=== PATIENT | male | born 1935 | race Caucasian/White ===

== ENCOUNTER 2019-09-14 21:43 | Emergency (ER) | payer MEDICARE, SELFPAY ==
[2019-09-14 21:48] VITALS: BP 167/78; PULSE 70; RESP 18; TEMP 36.9; O2SAT 100
--- NOTE | 2019-09-14 21:58 | ED.CHESTPAIN ---
HPI - Chest Pain General Chief Complaint: Chest Pain Stated Complaint: burning in chest Time Seen by Provider: 09/14/19 21:56 Source: patient, family and RN notes reviewed Mode of arrival: ambulatory Limitations: other (Poor historian ) History of Present Illness HPI narrative: A 84 y/o male presents to the ED with intermittent, burning, lt CP for the past couple days. He states that the pain radiates into his LUE, neck, upper back, and shoulders. He reports that he had therapy for his neck, back, shoulders, and knees today for his arthritis, which he has been doing for sometime. He notes that he took Tylenol at 8 PM tonight but denies it alleviating his pain. He also denies any SOB, N/V/D, or ABD pain. MD complaint: chest pain Onset (ago): day(s) (a couple) Timing of current episode: episodic Pain location: left chest Pain radiation: left arm, back (upper), neck, left shoulder and right shoulder Quality: burning Relieving factors: nothing Treatment prior to arrival: other (Tylenol) Related Data Allergies Allergy/AdvReac Type Severity Reaction Status Date / Time No Known Allergies Allergy Verified 09/01/19 15:21 Review of Systems Review of Systems: All systems reviewed & are unremarkable except as noted in HPI and below Cardiovascular: Cardiovascular: Reports chest pain (lt that radiates into his neck, upper back, shoulders, and LUE) Respiratory: Respiratory: Denies dyspnea Gastrointestinal: Gastrointestinal: Denies abdominal pain, Denies diarrhea, Denies nausea and Denies vomiting PMFSH Past Medical History Medical History (Updated 09/15/19 @ 00:26 by Aries Hall MD) Arthritis History of BPH History of depression History of gastroesophageal reflux (GERD) History of seizures Surgical History Surgical History (Updated 09/14/19 @ 22:12 by Faraz Rowe) Surgical history unknown Social History Social History Smoking status: Never smoker Substance use: never Gender identity (if verbalized by the patient): Female Exam Const: General: healthy appearing and no acute distress Nutritional Appearance: well nourished HENMT: Mouth: Yes lip normal and Yes moist mucous membranes Eyes: Conjunctivae: conjunctivae normal Pupils: Equal, round and reactive pupils present Resp: Effort & Inspection: normal respiratory effort Auscultation: clear to auscultation bilaterally Cardio: Rate: regular rate Rhythm: regular rhythm Heart sounds: no murmurs GI: GI Palp: No abdominal tenderness and Yes Soft to palpation Auscultation: normal bowel sounds Back/Spine/Pelvis: Back: other (Diffuse tenderness across upper back) Other: Full ROM. Skin: General skin exam: normal color, dry skin and other (warm) Neuro: General: patient oriented x3 (alert) Speech: normal speech Extrem: General: full ROM Psych: Mental Status: mental status grossly normal Affect: normal affect Course Vital Signs Vital signs: Vital Signs Temperature 36.9 C 09/14/19 21:48 Pulse Rate 70 09/14/19 21:48 Respiratory Rate 18 09/14/19 21:48 Blood Pressure 167/78 H 09/14/19 21:48 Pulse Oximetry 100 09/14/19 21:48 Temperature 36.9 C 09/14/19 21:48 Pulse Rate 60 09/15/19 00:51 Respiratory Rate 20 09/15/19 00:51 Blood Pressure 166/81 H 09/15/19 00:51 Pulse Oximetry 99 09/15/19 00:51 MDM - Chest Pain MDM Narrative Medical decision making narrative: His pain does not seem to be consistent with any particularly worisem cause, however her is a poor history and has difficulty articulating any specific information about hs symptoms or why whats different about his pain that made him come in toinght. pain improved with motrin. Differential Diagnosis Differential diagnosis: Likely pneumothorax, atypical chest pain and other (muscle strain, NSTEMI, arthritis) Medical Records Data Attestation: I reviewed the patient's medical records. Lab Data Attestation: I re
--- NOTE | 2019-09-14 22:12 | PC.NURSE ---
Patient refused chest Xray. EDP informed.
--- NOTE | 2019-09-14 22:20 | ECG_ITS ---
Measurements Intervals [place] Rate: 60 P: 27 [place]: 184 QRS: -21 QRSD: 94 T: 44 QT: 416 QTc: 417 Interpretive Statements SINUS RHYTHM NORMAL ECG Electronically Signed On 09-15-2019 6:42:17 [employer] by Paulo Gamez D.O.
[2019-09-14 22:35] VITALS: BP 144/77; PULSE 62; RESP 15; O2SAT 100; O2SAT 98
[2019-09-14] MEDS: KETOROLAC 30 MG/ML VIAL (*BKC) IV PUSH (22:48)
[2019-09-14 23:04] LABS: Basophils Percent Auto 0.8 % (0.2-1.2); Eosinophils Absolute Auto 0.2 K/mm3 (0-0.3); Eosinophils Percent Auto 4.3 % (0-4.4); Hematocrit 38.2 % (42.0-52.0); Hemoglobin 12.5 g/dL (14.0-18.0); Immature Granulocyte Absolute 0.01 K/mm3 (0.00-0.031); Immature Granulocyte Percent A 0.2 % (0-0.5); Lymphocytes Absolute Auto 1.58 K/mm3 (0.9-3.2); Mean Corpuscular HGB Conc 32.7 g/dl (32-36); Mean Corpuscular Volume 97.7 fl (80-100); Mean Platelet Volume 10.6 fl (7.4-10.4); Monocytes Absolute Auto 0.6 K/mm3 (0.1-0.6); Monocytes Percent Auto 10.8 % (2.6-8.5); Neutrophils Absolute Auto 2.7 K/mm3 (1.3-6.7); Neutrophils Percent Auto 52.9 % (45.5-73.1); Platelet Count Result 187 k/mm3 (150-375); Red Blood Count 3.91 M/mm3 (4.6-6.20); Red Cell Distribution Width 13.3 % (11.5-14.5); White Blood Count 5.1 K/mm3 (4.5-10.0)
[2019-09-14 23:18] LABS: Alanine Aminotransferase 21 U/L (4-50); Albumin Level 3.8 g/dL (3.5-5.1); Alkaline Phosphatase 102 U/L (38-126); Aspartate Amino Transferase 25 U/L (17-59); Bilirubin,Total < 0.1 mg/dL (0.2-1.3); Blood Urea Nitrogen 10 mg/dL (9-20); Calcium 8.6 mg/dL (8.4-10.2); Carbon Dioxide 27 mmol/L (22-30); Chloride 98 mmol/L (98-107); Estimated CRCL calculation 58 ml/min; Estimated Glomerular Filt Rate > 60; Glucose 98 mg/dL (75-110); Potassium 3.9 mmol/L (3.4-5.0); Sodium 133 mmol/L (137-145)
[2019-09-14 23:20] LABS: INR 0.9; Prothrombin Time 12.1 Seconds (11.1-14.7)
[2019-09-14 23:28] LABS: Troponin I < 0.012 ng/mL (0.000-0.034)
[2019-09-15 00:51] VITALS: BP 166/81; PULSE 60; RESP 20; O2SAT 99
[2019-09-15 00:57] LABS: Troponin I < 0.012 ng/mL (0.000-0.034)
== END 2019-09-15 00:50 | disposition home or self-care (01) ==
PROVIDERS: Emergency Medicine; Emergency Provider Emergency Medicine; PCP Physician Assistant
DX: M54.9 Dorsalgia, unspecified (principal); M19.90 Unspecified osteoarthritis, unspecified site; F32.9 Major depressive disorder, single episode, unspecified; K21.9 Gastro-esophageal reflux disease without esophagitis; G40.909 Epilepsy, unspecified, not intractable, without status epilepticus
CPT/HCPCS: 36415; 80053; 84484; 85025; 85610; 93005; 96374; 99284; J1885

== ENCOUNTER 2020-10-27 11:17 | Emergency (ER) | payer MEDICARE, SELFPAY ==
--- NOTE | ~2020-10-27 | XR_ITS ---
EXAMINATION: XR chest 2V DATE: 10/27/2020 11:50 INDICATION: Acute onset chest pain TECHNIQUE: PA and lateral views of the chest were obtained. COMPARISON: Chest radiograph dated 09/01/2019 FINDINGS: No interval change in mild linear discoid atelectasis at the lateral left lung base. No new airspace opacities, pulmonary edema, pleural effusion or pneumothorax. The cardiomediastinal silhouette is nor mal. Moderate to severe degenerative skeletal changes in the thoracolumbar spine and at the bilateral glenohumeral joints. IMPRESSION: 1. Unchanged mild linear left basilar atelectasis/scarring. No other acute cardiopulmonary disease. Reviewed, dictated and finalized at location B. IMPRESSION: 1. Unchanged mild linear left basilar atelectasis/scarring. No other acute card iopulmonary disease.
--- NOTE | 2020-10-27 11:32 | ECG_ITS ---
Measurements Intervals [place] Rate: 63 P: 23 [place]: 167 QRS: -40 QRSD: 88 T: 42 QT: 393 QTc: 403 Interpretive Statements SINUS RHYTHM LEFT AXIS DEVIATION BORDERLINE R WAVE PROGRESSION, ANTERIOR LEADS BASELINE ARTIFACT- I, II, AVR BORDERLINE ECG Electronically Signed On 10-27-2020 12:06:08 CDT by Paulo Gamez D.O.
[2020-10-27 11:38] VITALS: BP 183/83; PULSE 69; RESP 18; TEMP 36.8; O2SAT 99
[2020-10-27 12:22] LABS: Basophils Percent Auto 0.3 % (0.2-1.2); Eosinophils Absolute Auto 0.1 K/mm3 (0-0.3); Eosinophils Percent Auto 1.1 % (0-4.4); Hematocrit 46.3 % (42.0-52.0); Hemoglobin 15.5 g/dL (14.0-18.0); Immature Granulocyte Absolute 0.01 K/mm3 (0.00-0.031); Immature Granulocyte Percent A 0.2 % (0-0.5); Lymphocytes Absolute Auto 1.33 K/mm3 (0.9-3.2); Lymphocytes Percent Auto 21.7 % (18.3-44.2); Mean Corpuscular HGB Conc 33.5 g/dl (32-36); Mean Corpuscular Hemoglobin 33.3 pg (26-34); Mean Corpuscular Volume 99.4 fl (80-100); Mean Platelet Volume 11.3 fl (7.4-10.4); Monocytes Absolute Auto 0.5 K/mm3 (0.1-0.6); Monocytes Percent Auto 8.3 % (2.6-8.5); Neutrophils Absolute Auto 4.2 K/mm3 (1.3-6.7); Neutrophils Percent Auto 68.4 % (45.5-73.1); Platelet Count Result 157 k/mm3 (150-375); Red Blood Count 4.66 M/mm3 (4.6-6.20); Red Cell Distribution Width 13.5 % (11.5-14.5); White Blood Count 6.1 K/mm3 (4.5-10.0)
[2020-10-27 12:31] LABS: INR 0.9; Prothrombin Time 12.3 Seconds (11.1-14.7)
[2020-10-27 12:36] LABS: Anion Gap 5 mmol/L (8-16); Blood Urea Nitrogen 14 mg/dL (9-20); Carbon Dioxide 32 mmol/L (22-30); Chloride 102 mmol/L (98-107); Estimated CRCL calculation 53 ml/min; Estimated Glomerular Filt Rate > 60; Glucose 108 mg/dL (75-110); Potassium 3.6 mmol/L (3.4-5.0); Sodium 139 mmol/L (137-145)
[2020-10-27 12:48] LABS: Troponin I < 0.012 ng/mL (0.000-0.034)
--- NOTE | 2020-10-27 13:21 | ED.CHESTPAIN ---
HPI - Chest Pain General Chief Complaint: Chest Pain Stated Complaint: r chest pain Time Seen by Provider: 10/27/20 11:32 History of Present Illness HPI narrative: Patient is an 85-year-old male who presents ER with concerns for chest discomfort. Reports he woke up this morning at 7 AM had some right-sided aching to the lateral aspect of his chest. It went away pretty quickly with waking up and eating. He then reports twice during the day he had brief less than 1 second sharp twinges to the left anterior chest wall. No association with eating or drinking or movement. No shortness of breath/nausea/diaphoresis. No exertional shortness of breath or fatigue. Has not had coronary issues in the past. Has not taken any pain medication. Does not believe he is performed any physical activity that could have caused injury. Related Data Home Medications Medication Instructions Recorded Confirmed aspirin 81 mg DAILY 07/13/19 escitalopram oxalate mg 07/13/19 fluticasone propionate 2 INTRANASAL 07/13/19 omeprazole 07/13/19 atorvastatin 10 mg DAILY 07/17/19 07/17/19 dutasteride [Avodart] 0.5 mg PO DAILY 07/17/19 07/17/19 phenytoin sodium extended 100 mg PO DAILY 07/17/19 07/17/19 [Dilantin Extended] Allergies Allergy/AdvReac Type Severity Reaction Status Date / Time No Known Allergies Allergy Verified 11/04/19 14:57 Review of Systems Review of Systems: All systems reviewed & are unremarkable except as noted in HPI and below Constitutional: Constitutional: Denies chills, Denies fever(s) and Denies weakness ENT: Denies nasal congestion and Denies sore throat Cardiovascular: Cardiovascular: Reports chest pain, Denies rapid heart rate and Denies radiating jaw, neck or arm pain Respiratory: Respiratory: Denies cough, Denies dyspnea and Denies wheezing Gastrointestinal: Gastrointestinal: Denies abdominal pain, Denies nausea and Denies vomiting Musculoskeletal: Musculoskeletal: Denies back pain, Denies joint swelling and Denies muscle cramps PMFSH Past Medical History Medical History (Updated 10/27/20 @ 13:26 by Herman Gasca MD) Allergic rhinitis Arthritis BPH (benign prostatic hyperplasia) Depression GERD (gastroesophageal reflux disease) History of BPH History of depression History of gastroesophageal reflux (GERD) History of seizures HLD (hyperlipidemia) Surgical History Surgical History (Updated 11/04/19 @ 14:57 by Doris Valencia) History of hand surgery Finger surgery Surgical history unknown Social History Social History (System 11/04/19 @ 14:57 by Doris Valencia) Smoking status: Never smoker Substance use: never Gender identity (if verbalized by the patient): Male Exam Narrative: Exam Narrative: GENERAL: Well-appearing, well-nourished, and in no acute distress. HEAD: Normocephalic, atraumatic. ENT: Mucous membranes moist. CHEST: Clear to auscultation. No respiratory distress. No reproducible tenderness. HEART: Regular rate and rhythm. Normal peripheral pulses. ABDOMEN: Soft, nontender, nondistended. EXTREMITIES: Normal range of motion. No edema. SKIN: Warm, dry, no rash. NEURO: Alert and oriented x3. PSYCH: Normal mood and affect. Course Course Emergency Course: No pain here. Negative troponin. Discharge home. Symptoms felt to be reflective of musculoskeletal discomfort as opposed to true cardiac chest pain. Vital Signs Vital signs: Vital Signs Temperature 98.3 F 10/27/20 11:38 Pulse Rate 69 10/27/20 11:38 Respiratory Rate 18 10/27/20 11:38 Blood Pressure 183/83 H 10/27/20 11:38 Pulse Oximetry 99 10/27/20 11:38 Temperature 98.3 F 10/27/20 11:38 Pulse Rate 69 10/27/20 11:38 Respiratory Rate 18 10/27/20 11:38 Blood Pressure 183/83 H 10/27/20 11:38 Pulse Oximetry 99 10/27/20 11:38 MDM - Chest Pain Lab Data Result diagrams: 10/27/20 12:06 10/27/20 12:06 Labs: Lab Results 10/27/20 10/27/20
== END 2020-10-27 13:53 | disposition home or self-care (01) ==
PROVIDERS: Emergency Provider Emergency Medicine; PCP Physician Assistant
DX: R07.89 Other chest pain (principal); M19.90 Unspecified osteoarthritis, unspecified site; N40.0 Benign prostatic hyperplasia without lower urinary tract symptoms; F32.9 Major depressive disorder, single episode, unspecified; K21.9 Gastro-esophageal reflux disease without esophagitis; E78.5 Hyperlipidemia, unspecified; R94.31 Abnormal electrocardiogram [ECG] [EKG]
CPT/HCPCS: 36415; 71046; 80048; 84484; 85025; 85610; 85730; 93005; 99284

== ENCOUNTER 2021-03-25 09:56 | Emergency (ER) | payer MEDICARE, SELFPAY ==
[2021-03-25 10:06] VITALS: BP 138/66; PULSE 66; RESP 16; TEMP 36.3; O2SAT 96
--- NOTE | 2021-03-25 10:14 | ED.EAR ---
HPI - Ear Problem General Chief complaint: Ear Stated complaint: Ear Pain Time Seen by Provider: 03/25/21 10:14 Source: patient, RN notes reviewed and old records reviewed Mode of arrival: ambulatory Limitations: no limitations History of Present Illness HPI Narrative: 86 year old male who presents to [facility] with complaints of left ear pain since yesterday states feels like a grabbing pain in his ear. Patient reports that he took some Ibuprofen which did help the pain. Patient states that he has had some nasal drainage but has problems with seasonal allergies and takes daily Flonase. He denies any known fevers, chills or sweats, denies any cough or any shortness of breath or wheezing, he report that he has had his Covid immunizations. MD Complaint: ear pain Location: left ear Related Data Home Medications Medication Instructions Recorded Confirmed aspirin 81 mg DAILY 07/13/19 escitalopram oxalate mg 07/13/19 fluticasone propionate 2 INTRANASAL 07/13/19 omeprazole 07/13/19 atorvastatin 10 mg DAILY 07/17/19 07/17/19 dutasteride [Avodart] 0.5 mg PO DAILY 07/17/19 07/17/19 phenytoin sodium extended 100 mg PO DAILY 07/17/19 07/17/19 [Dilantin Extended] Eye Vitamin 03/25/21 Allergies Allergy/AdvReac Type Severity Reaction Status Date / Time No Known Allergies Allergy Verified 11/04/19 14:57 Review of Systems Review of Systems: CONSTITUTIONAL: Denies fever, chills, or sweats. EYES: Denies visual changes, redness, or discharge. ENT:Positive clear rhinorrhea, congestion,no sore throat,Positive left ear otalgia. CARDIOVASCULAR: Denies chest pain, palpitations, or edema. RESPIRATORY: Denies cough or dyspnea. GASTROINTESTINAL: Denies abdominal pain, nausea, vomiting, or diarrhea. GENITOURINARY: Denies dysuria or hematuria. SKIN: Denies rash or itching. MUSCULOSKELETAL: Denies acute back pain, joint pain, or myalgia, has history of arthritis NEUROLOGIC: Denies headache, numbness, or weakness. PSYCHIATRIC: Positive history of anxiety or depression. All systems reviewed & are unremarkable except as noted in HPI and below PMFSH Past Medical History Medical History (Updated 03/27/21 @ 09:53 by Karen Sun NP) Allergic rhinitis Arthritis BPH (benign prostatic hyperplasia) Depression GERD (gastroesophageal reflux disease) History of BPH History of depression History of gastroesophageal reflux (GERD) History of seizures HLD (hyperlipidemia) Surgical History Surgical History (Updated 03/27/21 @ 09:52 by Karen Sun NP) History of hand surgery Finger surgery S/P cataract extraction and insertion of intraocular lens Bilateral Family History Family History (Updated 03/27/21 @ 09:47 by Karen Sun NP) Sibling Leukemia Other Diabetes mellitus Social History Social History Smoking status: Never smoker Substance use: never Gender identity (if verbalized by the patient): Male Comments At time of signature, agree with nursing past medical, surgical, social and family history. There is no relevant family history pertinent to the presenting complaint Exam Narrative: GENERAL: Well-appearing, well-nourished, and in no acute distress. HEAD: Normocephalic, atraumatic. EYES: PERRLA and EOMI. ENT: Nares mild redness, clear rhinorrhea no epistaxis. Mucous membranes moist.Right TM normal with good light reflex, Left TM red with bulging no drainage noted, throat pink with no lesions or exudates no tonsil enlargement, NECK: Supple.no lymphadenopathy CHEST: Clear to auscultation. No respiratory distress.SAO2 96% on room air HEART: Regular rate and rhythm. No murmur heard. Normal peripheral pulses. ABDOMEN: Soft, nontender, nondistended, normal active bowel sounds. EXTREMITIES: Normal range of motion. No edema. SKIN: Warm, dry, no rash. NEURO: No focal deficits. Alert and oriented x3. Course Vital Signs Vital signs: Vital Sign
== END 2021-03-25 10:36 | disposition home or self-care (01) ==
PROVIDERS: Emergency Provider Registered Nurse; PCP Physician Assistant
DX: H65.02 Acute serous otitis media, left ear (principal); M19.90 Unspecified osteoarthritis, unspecified site; N40.0 Benign prostatic hyperplasia without lower urinary tract symptoms; F32.9 Major depressive disorder, single episode, unspecified; K21.9 Gastro-esophageal reflux disease without esophagitis; E78.5 Hyperlipidemia, unspecified; G40.909 Epilepsy, unspecified, not intractable, without status epilepticus; Z79.82 Long term (current) use of aspirin; Z98.42 Cataract extraction status, left eye; Z98.41 Cataract extraction status, right eye; Z96.1 Presence of intraocular lens
CPT/HCPCS: 99213; G0463

== ENCOUNTER 2022-11-02 19:26 | Emergency (ER) | payer MEDICARE, SELFPAY ==
[2022-11-02] VITALS (7 sets, daily range): BP systolic 149–183; BP diastolic 72–86; PULSE 63–71; RESP 14–23; TEMP 36.8; O2SAT 95–97
--- NOTE | ~2022-11-02 | XR_ITS ---
XR chest 2V DATE: 11/02/2022 21:21 INDICATION: Chest pain for 2 days, left lateral side. Shortness of breath. TECHNIQUE: PA and lateral views COMPARISON: 10/27/2020 PA and lateral chest FINDINGS: Normal heart size. Mild aortic calcification and tortuosity. No hilar or mediastinal enlarg ement. There is bibasilar discoid atelectasis or scarring, likely chronic, present on 10/27/2020 pulmonary infiltrate or consolidation, pleural effusion or pulmonary vascular congestion or pneumotho rax. Mild scoliosis of the thoracolumbar spine. Degenerative spurring of the thoracic and lumbar spine. Bi lateral glenohumeral osteoarthritis. IMPRESSION: Bibasilar discoid atelectasis or more likely scarring, largely chronic No active cardiopulmonary disease Aortic atherosclerosis Reviewed, dictated and finalized at location A. IMPRESSION: Bibasilar discoid atelectasis or more likely scarring, largely color room attendant ramesh No active cardiopulmonary disease Aortic atherosclerosis
--- NOTE | ~2022-11-02 | CT_ITS ---
EXAMINATION: CT abdomen pelvis w con INDICATION: Left lower quadrant pain TECHNIQUE: Computed tomographic images of the abdomen and pelvis were obtained after the administrati on of 100 cc of Omnipaque 350 intravenous contrast. The dose-length product (DLP) was 593.72 mGy-cm. Automated exposure control and iterative reconstruction technique were employed. COMPARISON: 05/03/2005 FINDINGS: Minimal dependent atelectasis is present in the lung bases. The heart size is normal. Stone s are present in the nondistended gallbladder. There is a 5 mm cyst of the liver. Punctate calcificat ions in an otherwise normal spleen likely represent healed granulomatous disease. Cysts of the kidney s measure up to 2.5 cm on the right. No pathologically enlarged abdominal or pelvic lymph nodes are i dentified. No free intraperitoneal gas or evidence of bowel obstruction. There is severe lumbar spond ylosis. IMPRESSION: 1. No CT correlate for the patient's symptoms. 2. Cholelithiasis without evidence of cholecystitis. Reviewed, dictated and finalized at location A.
--- NOTE | 2022-11-02 19:36 | ECG_ITS ---
Measurements Intervals [place] Rate: 65 P: 53 [place]: 203 QRS: -38 QRSD: 95 T: 53 QT: 394 QTc: 411 Interpretive Statements SINUS RHYTHM LEFT AXIS DEVIATION INCOMPLETE RIGHT BUNDLE BRANCH BLOCK DELAYED PRECORDIAL R/S TRANSITION BORDERLINE ECG COMPARED TO ECG 10/27/2020 11:33:07 INCOMPLETE RIGHT BUNDLE-BRANCH BLOCK NOW PRESENT Electronically Signed On 11-02-2022 20:42:25 CDT by Paulo Gamez D.O.
[2022-11-02 19:50] LABS: Basophils Percent Auto 0.7 % (0.2-1.2); Eosinophils Absolute Auto 0.3 K/mm3 (0-0.3); Eosinophils Percent Auto 5.6 % (0-4.4); Hematocrit 38.2 % (42.0-52.0); Lymphocytes Absolute Auto 2.33 K/mm3 (0.9-3.2); Lymphocytes Percent Auto 42.1 % (18.3-44.2); Mean Corpuscular Hemoglobin 33.5 pg (26-34); Mean Corpuscular Volume 98.5 fl (80-100); Mean Platelet Volume 9.8 fl (7.4-10.4); Monocytes Absolute Auto 0.6 K/mm3 (0.1-0.6); Monocytes Percent Auto 10.6 % (2.6-8.5); Neutrophils Absolute Auto 2.3 K/mm3 (1.3-6.7); Platelet Count Result 185 k/mm3 (150-375); Red Blood Count 3.88 M/mm3 (4.6-6.20); Red Cell Distribution Width 13.8 % (11.5-14.5); White Blood Count 5.5 K/mm3 (4.5-10.0)
[2022-11-02 19:59] LABS: Alanine Aminotransferase 26 U/L (6-50); Albumin Level 4.1 g/dL (3.5-5.1); Alkaline Phosphatase 102 U/L (38-126); Anion Gap 6 mmol/L (8-16); Aspartate Amino Transferase 30 U/L (17-59); Bilirubin,Total 0.2 mg/dL (0.2-1.3); Blood Urea Nitrogen 13 mg/dL (9-20); Calcium 8.1 mg/dL (8.4-10.2); Carbon Dioxide 28 mmol/L (22-30); Chloride 102 mmol/L (98-107); Estimated CRCL calculation 55 ml/min; Estimated Glomerular Filt Rate > 60; Glucose 120 mg/dL (65-110); Lipase 94 U/L (23-300); Sodium 136 mmol/L (137-145)
[2022-11-02 20:01] LABS: Prothrombin Time 12.7 Seconds (11.1-14.7)
[2022-11-02 20:02] LABS: Partial Thromboplastin Time 34.8 SECONDS (22.3-36.8)
[2022-11-02 20:10] LABS: Troponin I < 0.012 ng/mL (0.000-0.034)
[2022-11-02 22:47] LABS: Hematocrit 38.2 % (42.0-52.0); Hemoglobin 12.9 g/dL (14.0-18.0)
[2022-11-02 23:16] LABS: Troponin I < 0.012 ng/mL (0.000-0.034)
--- NOTE | 2022-11-02 23:27 | ED.GENADULT ---
HPI - General Adult General Chief complaint: GI Bleed Stated complaint: gi bleed Time Seen by Provider: 11/02/22 21:50 History of Present Illness HPI narrative: Patient 87-year-old gentleman who presents the emergency department with chief complaint of rectal bleeding and chest pain. Patient reports that for several days has been having discomfort in the left side of his chest describes it more as a sharp type pain worse with inspiration states it is in the muscles between 2 ribs. Patient states that today he had a bowel movement and had bright red blood per rectum patient states the blood was more streaked on the stool patient does report that he had some discomfort in the left lower quadrant Related Data Home Medications Medication Instructions Recorded Confirmed aspirin 81 mg chewable tablet 81 mg DAILY 07/13/19 escitalopram oxalate 5 mg tablet mg 07/13/19 fluticasone propionate 50 2 intranasal 07/13/19 mcg/actuation nasal spray,suspension omeprazole 20 mg capsule,delayed 07/13/19 release atorvastatin 10 mg tablet 10 mg DAILY 07/17/19 07/17/19 dutasteride 0.5 mg capsule 0.5 mg PO DAILY 07/17/19 07/17/19 (Avodart) phenytoin sodium extended 100 mg 100 mg PO DAILY 07/17/19 07/17/19 capsule (Dilantin Extended) Eye Vitamin 03/25/21 Allergies Allergy/AdvReac Type Severity Reaction Status Date / Time No Known Allergies Allergy Verified 11/02/22 19:27 Review of Systems Review of Systems: A 10 system review of systems was completed on the patient and is negative except for what is stated in the HPI. Nursing and ancillary documentation was reviewed. [facility] Past Medical History Medical History Allergic rhinitis Arthritis BPH (benign prostatic hyperplasia) Depression GERD (gastroesophageal reflux disease) History of BPH History of depression History of gastroesophageal reflux (GERD) History of seizures HLD (hyperlipidemia) Surgical History Surgical History History of hand surgery Finger surgery S/P cataract extraction and insertion of intraocular lens Bilateral Family History Family History Sibling Leukemia Other Diabetes mellitus Social History Social History Smoking status: Never smoker Substance use: never Gender identity (if verbalized by the patient): Male Exam Narrative: GENERAL: Well-appearing, well-nourished, and in no acute distress. HEAD: Normocephalic, atraumatic. EYES: PERRLA and EOMI. ENT: Nares clear, no rhinorrhea or epistaxis. Mucous membranes moist. NECK: Supple. CHEST: Clear to auscultation. No respiratory distress. HEART: Regular rate and rhythm. No murmur heard. Normal peripheral pulses. ABDOMEN: Soft, tenderness to palpation in the left lower quadrant, nondistended, normal active bowel sounds. : There is a large hemorrhoid that appears to have been bleeding, stool is guaiac positive EXTREMITIES: Normal range of motion. No edema. SKIN: Warm, dry, no rash. NEURO: No focal deficits. Alert and oriented x3. PSYCH: Normal mood and affect. Course Vital Signs Vital signs: Vital Signs Temperature 36.8 C 11/02/22 19:28 Pulse Rate 71 11/02/22 19:28 Respiratory Rate 18 11/02/22 19:28 Blood Pressure 162/72 H 11/02/22 19:28 Pulse Oximetry 96 11/02/22 19:28 Oxygen Delivery Room Air 11/02/22 19:28 Temperature 36.8 C 11/02/22 19:28 Pulse Rate 63 11/03/22 00:02 Respiratory Rate 17 11/03/22 00:02 Blood Pressure 160/76 H 11/03/22 00:02 Pulse Oximetry 96 11/03/22 00:02 Oxygen Delivery Room Air 11/02/22 19:28 Medical Decision Making [facility] Narrative Medical decision making narrative: Differential diagnosis includes GI bleed, colitis, diverticulitis, hemorrhoid bl
[2022-11-03 00:02] VITALS: BP 160/76; PULSE 63; RESP 17; O2SAT 96
[2022-11-03 01:25] VITALS: BP 152/74; PULSE 61; RESP 19; O2SAT 100
== END 2022-11-03 01:30 | disposition home or self-care (01) ==
PROVIDERS: Emergency Provider Emergency Medicine; PCP Physician Assistant
DX: K64.4 Residual hemorrhoidal skin tags (principal); K62.5 Hemorrhage of anus and rectum; R07.89 Other chest pain; K21.9 Gastro-esophageal reflux disease without esophagitis; E78.5 Hyperlipidemia, unspecified
CPT/HCPCS: 36415; 71046; 74177; 80053; 83690; 84484; 85014; 85018; 85025; 85610; 85730; 93005; 99284; Q9967

== ENCOUNTER 2022-11-08 13:46 | Outpatient (CLI) | payer MEDICARE, SELFPAY ==
[2022-11-08 15:59] LABS: Toxigenic C. Diff NEGATIVE (NEGATIVE)
== END 2022-11-08 13:47 | disposition home or self-care (01) ==
LOC: ANHLAB 13:49
PROVIDERS: PCP Physician Assistant; Visit Provider Physician Assistant
DX: R19.7 Diarrhea, unspecified (principal)
CPT/HCPCS: 87045; 87427; 87493

== ENCOUNTER 2023-01-29 15:53 | Emergency (ER) | payer MEDICARE, SELFPAY ==
[2023-01-29] VITALS (13 sets, daily range): BP systolic 148–163; BP diastolic 68–86; PULSE 56–78; RESP 16–27; TEMP 36.8; O2SAT 94–99
--- NOTE | 2023-01-29 16:26 | ECG_ITS ---
Measurements Intervals [place] Rate: 66 P: 15 [place]: 188 QRS: -36 QRSD: 92 T: 48 QT: 405 QTc: 426 Interpretive Statements SINUS RHYTHM LEFT AXIS DEVIATION [QRS AXIS < -30] INCOMPLETE RIGHT BUNDLE BRANCH BLOCK [90+ ms QRS DURATION, TERMINAL R IN V1/V2, 40+ ms S IN I/aVL/V4/V5/V6] MINIMAL VOLTAGE CRITERIA FOR LVH, CONSIDER NORMAL VARIANT [MEETS CRITERIA IN ONE OF: R(aVL), S(V1), R(V5), R(V5/V6)+S(V1)] COMPARED TO ECG 11/02/2022 19:39:45 NO SIGNIFICANT CHANGES Electronically Signed On 01-29-2023 20:01:03 CDT by Cecile Dunlap M.D.
[2023-01-29 16:56] LABS: Basophils Absolute Auto 0.1 K/mm3 (0.0-0.1); Basophils Percent Auto 0.9 % (0.2-1.2); Eosinophils Absolute Auto 0.2 K/mm3 (0-0.3); Eosinophils Percent Auto 3.9 % (0-4.4); Hematocrit 39.6 % (42.0-52.0); Hemoglobin 13.4 g/dL (14.0-18.0); Immature Granulocyte Absolute 0.01 K/mm3 (0.00-0.031); Immature Granulocyte Percent A 0.2 % (0-0.5); Lymphocytes Percent Auto 32.6 % (18.3-44.2); Mean Corpuscular HGB Conc 33.8 g/dl (32-36); Mean Corpuscular Hemoglobin 33.3 pg (26-34); Mean Corpuscular Volume 98.5 fl (80-100); Mean Platelet Volume 10.6 fl (7.4-10.4); Monocytes Absolute Auto 0.7 K/mm3 (0.1-0.6); Monocytes Percent Auto 12.3 % (2.6-8.5); Neutrophils Absolute Auto 2.9 K/mm3 (1.3-6.7); Neutrophils Percent Auto 50.1 % (45.5-73.1); Platelet Count Result 175 k/mm3 (150-375); Red Blood Count 4.02 M/mm3 (4.6-6.20); Red Cell Distribution Width 13.4 % (11.5-14.5); White Blood Count 5.8 K/mm3 (4.5-10.0)
[2023-01-29 17:06] LABS: Alanine Aminotransferase 25 U/L (6-50); Albumin Level 4.2 g/dL (3.5-5.1); Alkaline Phosphatase 94 U/L (38-126); Anion Gap 3 mmol/L (8-16); Aspartate Amino Transferase 28 U/L (17-59); Bilirubin,Total 0.3 mg/dL (0.2-1.3); Blood Urea Nitrogen 13 mg/dL (9-20); Calcium 8.3 mg/dL (8.4-10.2); Carbon Dioxide 29 mmol/L (22-30); Chloride 100 mmol/L (98-107); Estimated CRCL calculation 63 ml/min; Estimated Glomerular Filt Rate > 60; Glucose 97 mg/dL (65-110); Potassium 4.2 mmol/L (3.4-5.0); Sodium 132 mmol/L (137-145)
[2023-01-29 17:13] LABS: Appearance Urine Clear (Clear); Bilirubin Urine Negative (Negative); Blood Urine Negative (Negative); Color Urine Yellow (Yellow); Glucose Urine UA Negative (Negative); Ketones Urine Negative (Negative); Leukocyte Esterase Ur Negative LEU/UL (Negative); Nitrate Urine Negative (Negative); Protein Urine Negative (Negative); Specific Grav Ur 1.012 (1.001-1.035); Urobilinogen Urine 0.2 mg/dL (<2.0); pH Urine 6.5 (5.0-9.0)
[2023-01-29 17:16] LABS: Add Urine Microscopic? NO
--- NOTE | 2023-01-29 17:47 | ED.GENADULT ---
HPI - General Adult General Chief complaint: Unspecified <STACEY Hart Last Filed: 01/30/23 03:31> Stated complaint: Body feels different <STACEY Hart Last Filed: 01/30/23 03:31> Time Seen by Provider: 01/29/23 16:54 <STACEY Hart Last Filed: 01/30/23 03:31> Source: patient <STACEY Hart Last Filed: 01/30/23 03:31> Mode of arrival: ambulatory <STACEY Hart Last Filed: 01/30/23 03:31> Limitations: no limitations <STACEY Hart Last Filed: 01/30/23 03:31> History of Present Illness HPI narrative: Patient is a-year-old male who presents to the ED with report of feeling off. Patient reports he felt off this morning today. He states he had a couple of moments when he felt lightheaded, particularly once this afternoon when he got up to go for a walk. The lightheadedness lasted for a few seconds before resolving on its own. He did not feel like he was going to pass out. Denies syncope. Denies vision changes, headache. Patient denies feeling any lightheadedness currently, states he just feels different. He is unable to describe this further. Patient saw his primary care doctor yesterday at which point everything was normal. Patient also mentions having diarrhea over the last few weeks. This has improved with taking fiber and Pepto-Bismol. He did not mention this to his primary care doctor yesterday. He denies any rectal bleeding or melena. Patient also complains of chronic neck pain, which has not changed. He went to a massage today which helped. Patient has been eating and drinking normally. Denies chest pain, shortness of breath, abdominal pain, nausea, vomiting, focal weakness, numbness. <STACEY Hart Last Filed: 01/30/23 03:31> Related Data Home medications: Home Medications Medication Instructions Recorded Confirmed aspirin 81 mg chewable tablet 81 mg DAILY 07/13/19 escitalopram oxalate 5 mg tablet mg 07/13/19 fluticasone propionate 50 2 intranasal 07/13/19 mcg/actuation nasal spray,suspension omeprazole 20 mg capsule,delayed 07/13/19 release atorvastatin 10 mg tablet 10 mg DAILY 07/17/19 07/17/19 dutasteride 0.5 mg capsule 0.5 mg PO DAILY 07/17/19 07/17/19 (Avodart) phenytoin sodium extended 100 mg 100 mg PO DAILY 07/17/19 07/17/19 capsule (Dilantin Extended) Eye Vitamin 03/25/21 <Daria Moon PA-C - Last Filed: 01/30/23 03:31> Allergies/adverse reactions: Allergies Allergy/AdvReac Type Severity Reaction Status Date / Time No Known Allergies Allergy Verified 01/29/23 16:27 <Daria Moon PA-C - Last Filed: 01/30/23 03:31> Review of Systems Review of Systems: CONSTITUTIONAL: Denies fever, chills, or sweats. EYES: Denies visual changes. CARDIOVASCULAR: Denies chest pain, palpitations, or edema. RESPIRATORY: Denies cough or dyspnea. GASTROINTESTINAL: Denies abdominal pain, nausea, vomiting. MUSCULOSKELETAL: See HPI. NEUROLOGIC: See HPI. <Daria Moon PA-C - Last Filed: 01/30/23 03:31> All systems reviewed & are unremarkable except as noted in HPI and below <Darai Moon PA-C - Last Filed: 01/30/23 03:31> [facility] Past Medical History Medical History: Medical History Allergic rhinitis Arthritis BPH (benign prostatic hyperplasia) Depression GERD (gastroesophageal reflux disease) History of BPH History of depression History of gastroesophageal reflux (GERD) History of seizures HLD (hyperlipidemia) <Daria Moon PA-C - Last Filed: 01/30/23 03:31> Surgical History Surgical History: Surgical History History of hand surgery Finger surgery S/P cataract extraction and insertion of intraocular lens Bilateral <Daria Moon PA-C -
[2023-01-29 18:22] LABS: Troponin I < 0.012 ng/mL (0.000-0.034)
== END 2023-01-29 19:53 | disposition home or self-care (01) ==
PROVIDERS: Emergency Medicine; Emergency Provider Physician Assistant; PCP Physician Assistant
DX: R42 Dizziness and giddiness (principal); F32.A Depression, unspecified; E78.5 Hyperlipidemia, unspecified; N40.0 Benign prostatic hyperplasia without lower urinary tract symptoms; M19.90 Unspecified osteoarthritis, unspecified site; K21.9 Gastro-esophageal reflux disease without esophagitis; Z98.42 Cataract extraction status, left eye; Z98.41 Cataract extraction status, right eye
CPT/HCPCS: 36415; 80053; 81003; 84484; 85025; 93005; 99284

== ENCOUNTER 2023-03-12 18:42 | Emergency (ER) | payer MEDICARE, SELFPAY ==
[2023-03-12] VITALS (26 sets, daily range): BP systolic 149–170; BP diastolic 72–84; PULSE 59–104; RESP 15–25; TEMP 36.9–37.1; O2SAT 93–99
--- NOTE | ~2023-03-12 | XR_ITS ---
EXAMINATION: XR chest 1V portable Exam Date/Time: 03/12/2023 19:45 CDT HISTORY: weakness WITH HOT FLASHES TODAY Comparison: CT abdomen pelvis 11/03/2022; x-ray chest 11/02/2022, 10/27/2020, 09/01/2019, 07/13/2019. RESULT: Lines, tubes, and devices: None. Lungs and pleura: Clear. A somewhat nodular opacity in the right lower lung is accounted for by summ ation artifact from pulmonary vessels compared to multiple priors. Cardiomediastinal silhouette: Stable. Other: No acute osseous or upper abdominal finding. IMPRESSION: No acute cardiopulmonary process. Reviewed, dictated and finalized at location K.
--- NOTE | 2023-03-12 18:55 | ECG_ITS ---
Measurements Intervals [place] Rate: 68 P: 24 [place]: 164 QRS: -38 QRSD: 94 T: 42 QT: 389 QTc: 417 Interpretive Statements SINUS RHYTHM MARKED LEFT AXIS DEVIATION [QRS AXIS < -30] PATTERN CONSISTENT WITH PULMONARY DISEASE COMPARED TO ECG 01/29/2023 16:30:22 NO SIGNIFICANT CHANGES Electronically Signed On 03-12-2023 19:40:26 CDT by Cecile Dunlap M.D.
[2023-03-12] MEDS: SODIUM CHLORIDE 0.9% IV 1,000 ML 500 ML IV CONT (19:43)
[2023-03-12 20:00] LABS: Basophils Percent Auto 0.8 % (0.2-1.2); Eosinophils Absolute Auto 0.2 K/mm3 (0-0.3); Hematocrit 42.1 % (42.0-52.0); Hemoglobin 14.1 g/dL (14.0-18.0); Immature Granulocyte Absolute 0.01 K/mm3 (0.00-0.031); Immature Granulocyte Percent A 0.2 % (0-0.5); Lymphocytes Absolute Auto 1.77 K/mm3 (0.9-3.2); Lymphocytes Percent Auto 35.5 % (18.3-44.2); Mean Corpuscular HGB Conc 33.5 g/dl (32-36); Mean Corpuscular Hemoglobin 33.2 pg (26-34); Mean Corpuscular Volume 99.1 fl (80-100); Mean Platelet Volume 10.8 fl (7.4-10.4); Monocytes Absolute Auto 0.5 K/mm3 (0.1-0.6); Neutrophils Absolute Auto 2.5 K/mm3 (1.3-6.7); Neutrophils Percent Auto 50.5 % (45.5-73.1); Platelet Count Result 171 k/mm3 (150-375); Red Blood Count 4.25 M/mm3 (4.6-6.20); Red Cell Distribution Width 13.3 % (11.5-14.5)
--- NOTE | 2023-03-12 20:10 | PC.NURSE ---
pt is resting with family at bedside. pt is axox4, abc are wnl nad. airway is patent,spontaneous and self maintained. pt denies c/p,sob. pt c/c hot flashes. pt has a flat affect and does not have good eye contact. pt denies pain and comfort measure addressed. family at bedside
[2023-03-12 20:11] LABS: INR 0.9; Lactic Acid Reflex 1.1 mmol/L (0.7-2.0); Partial Thromboplastin Time 37.8 SECONDS (22.3-36.8); Prothrombin Time 12.2 Seconds (11.1-14.7)
[2023-03-12 20:13] LABS: Alanine Aminotransferase 34 U/L (6-50); Albumin Level 3.8 g/dL (3.5-5.1); Alkaline Phosphatase 91 U/L (38-126); Anion Gap 6 mmol/L (8-16); Aspartate Amino Transferase 30 U/L (17-59); Bilirubin,Total 0.3 mg/dL (0.2-1.3); Blood Urea Nitrogen 11 mg/dL (9-20); Calcium 8.3 mg/dL (8.4-10.2); Carbon Dioxide 28 mmol/L (22-30); Chloride 97 mmol/L (98-107); Estimated CRCL calculation 54 ml/min; Estimated Glomerular Filt Rate > 60; Glucose 121 mg/dL (65-110); Lipase 77 U/L (23-300); Magnesium 2.1 mg/dL (1.6-2.3); Potassium 4.1 mmol/L (3.4-5.0); Sodium 131 mmol/L (137-145)
--- NOTE | 2023-03-12 20:20 | ED.GENADULT ---
HPI - General Adult General Chief complaint: Recheck/Abnormal Lab/Rx Stated complaint: elevated BP Time Seen by Provider: 03/12/23 19:22 History of Present Illness HPI narrative: Is a 88-year-old gentleman who presents the emergency department with chief complaint of not feeling well. Patient reports that he had his medications adjusted about a month ago and reports that he had an episode where he became sweaty and felt flushed. The patient denied chest pain reports that he has had some muscle tightness between his shoulder blades for some period of time the patient reports that he feels fine now patient does report that his blood pressure was somewhat elevated and reports that he normally runs elevated at home. Related Data Home Medications Medication Instructions Recorded Confirmed aspirin 81 mg chewable tablet 81 mg DAILY 07/13/19 escitalopram oxalate 5 mg tablet mg 07/13/19 fluticasone propionate 50 2 intranasal 07/13/19 mcg/actuation nasal spray,suspension omeprazole 20 mg capsule,delayed 07/13/19 release atorvastatin 10 mg tablet 10 mg DAILY 07/17/19 07/17/19 dutasteride 0.5 mg capsule 0.5 mg PO DAILY 07/17/19 07/17/19 (Avodart) phenytoin sodium extended 100 mg 100 mg PO DAILY 07/17/19 07/17/19 capsule (Dilantin Extended) Eye Vitamin 03/25/21 Allergies Allergy/AdvReac Type Severity Reaction Status Date / Time No Known Allergies Allergy Verified 03/12/23 19:01 Review of Systems Review of Systems: A 10 system review of systems was completed on the patient and is negative except for what is stated in the HPI. Nursing and ancillary documentation was reviewed. [facility] Past Medical History Medical History Allergic rhinitis Arthritis BPH (benign prostatic hyperplasia) Depression GERD (gastroesophageal reflux disease) History of BPH History of depression History of gastroesophageal reflux (GERD) History of seizures HLD (hyperlipidemia) Surgical History Surgical History History of hand surgery Finger surgery S/P cataract extraction and insertion of intraocular lens Bilateral Family History Family History Sibling Leukemia Other Diabetes mellitus Social History Social History Smoking status: Never smoker Substance use: never Gender identity (if verbalized by the patient): Male Exam Narrative: GENERAL: Well-appearing, well-nourished, and in no acute distress. HEAD: Normocephalic, atraumatic. EYES: PERRLA and EOMI. ENT: Nares clear, no rhinorrhea or epistaxis. Mucous membranes moist. NECK: Supple. CHEST: Clear to auscultation. No respiratory distress. HEART: Regular rate and rhythm. No murmur heard. Normal peripheral pulses. ABDOMEN: Soft, nontender, nondistended, normal active bowel sounds. EXTREMITIES: Normal range of motion. No edema. SKIN: Warm, dry, no rash. NEURO: No focal deficits. Alert and oriented x3. PSYCH: Normal mood and affect. Course Vital Signs Vital signs: Vital Signs Temperature 37.1 C 03/12/23 18:46 Pulse Rate 67 03/12/23 18:46 Respiratory Rate 18 03/12/23 18:46 Blood Pressure 169/75 H 03/12/23 18:46 Pulse Oximetry 95 03/12/23 18:46 Oxygen Delivery Room Air 03/12/23 18:46 Temperature 36.9 C 03/12/23 22:16 Pulse Rate 99 03/12/23 23:16 Respiratory Rate 24 H 03/12/23 23:16 Blood Pressure 170/72 H 03/12/23 22:16 Pulse Oximetry 93 03/12/23 23:16 Oxygen Delivery Room Air 03/12/23 18:46 Medical Decision Making Vital Signs Vital Signs: Vital Signs Temperature 37.1 C 03/12/23 18:46 Pulse Rate 67 03/12/23 18:46 Respiratory Rate 18 03/12/23 18:46 Blood Pressure 169/75 H 03/12/23 18:46 Pulse Oximetry 95 03/12/23 18:46 O
[2023-03-12 20:21] LABS: NT Pro B Type Natriuretic Pept 151 pg/mL (19.9-100)
[2023-03-12 20:24] LABS: Troponin I < 0.012 ng/mL (0.000-0.034)
[2023-03-12 21:29] LABS: Appearance Urine Clear (Clear); Bilirubin Urine Negative (Negative); Blood Urine Negative (Negative); Color Urine Yellow (Yellow); Glucose Urine UA Negative (Negative); Ketones Urine Negative (Negative); Leukocyte Esterase Ur Negative LEU/UL (Negative); Nitrate Urine Negative (Negative); Protein Urine Negative (Negative); Urobilinogen Urine 0.2 mg/dL (<2.0); pH Urine 6.5 (5.0-9.0)
[2023-03-12 21:31] LABS: Procalcitonin 0.1 ng/mL
[2023-03-12 21:33] LABS: Add Urine Microscopic? NO
[2023-03-12 23:07] LABS: Troponin I < 0.012 ng/mL (0.000-0.034)
--- NOTE | 2023-03-12 23:18 | PC.NURSE ---
pt was ambulatory around unit w/o any difficulty
== END 2023-03-12 23:44 | disposition home or self-care (01) ==
PROVIDERS: Emergency Provider Emergency Medicine; PCP Physician Assistant
DX: I10 Essential (primary) hypertension (principal); E78.5 Hyperlipidemia, unspecified; M19.90 Unspecified osteoarthritis, unspecified site; K21.9 Gastro-esophageal reflux disease without esophagitis; N40.0 Benign prostatic hyperplasia without lower urinary tract symptoms; F32.A Depression, unspecified; Z98.42 Cataract extraction status, left eye; Z98.41 Cataract extraction status, right eye; Z96.1 Presence of intraocular lens; Z79.82 Long term (current) use of aspirin; R94.31 Abnormal electrocardiogram [ECG] [EKG]
CPT/HCPCS: 36415; 71045; 80053; 81003; 83605; 83690; 83735; 83880; 84145; 84484; 85025; 85610; 85730; 93005; 99284; J7030

== ENCOUNTER 2023-09-05 18:02 | Observation (INO) | payer MEDICARE, SELFPAY ==
--- NOTE | ~2023-09-05 | CT_ITS ---
EXAMINATION:CT diagnostic chest wo con DATE: 09/05/2023 21:31 INDICATION: Nontraumatic upper back pain. TECHNIQUE: Computed tomography (CT) of the chest was performed without intravenous contrast. Automate d exposure control and iterative reconstruction technique were employed. The dose-length product (DLP ) was 266.85 mGy-cm. COMPARISON: CT abdomen and pelvis 11/03/2022 FINDINGS: There is mild atelectasis bilaterally. Calcified pulmonary nodules and calcified mediastina l lymph nodes are consistent with old granulomatous disease. No pleural effusion. The heart size is n ormal. No pericardial effusion. Calcifications in the spleen are consistent with old granulomatous di sease. There are gallstones in the gallbladder, which is normal in size. There is a 2.6 cm cyst in ri ght kidney. There is severe thoracic spondylosis. There is mild chronic height loss of many vertebral bodies. 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 IMPRESSION: 1. No acute cardiopulmonary disease. 2. Severe thoracic spondylosis. Reviewed, dictated and finalized at location E. ER ASSEMBLER
--- NOTE | ~2023-09-05 | CT_ITS ---
EXAMINATION: CT cervical spine wo con DATE: 09/05/2023 21:27 INDICATION: Left neck pain. TECHNIQUE: Computed tomography (CT) of the cervical spine was performed without intravenous contrast. Automated exposure control and iterative reconstruction technique were employed. The dose-length pro duct was 332.31 mGy-cm. COMPARISON: CT cervical spine 08/29/19 FINDINGS: There is 2 mm anterolisthesis of C5 on C6 and C7 on T1. Vertebral body heights are normal. There is mildly decreased disc height at C2-C3, severely decreased disc height from C3-C4 through C6- C7, and mildly decreased disc height at C7-T1. The following disc levels are specifically discussed: C2-C3: There is severe right and moderate left uncovertebral joint osteoarthritis. There is moderate right and severe left facet joint osteoarthritis. There is mild bilateral neural foraminal stenosis. There is no central canal stenosis. C3-C4: There is severe bilateral uncovertebral joint osteoarthritis. There is severe bilateral facet joint osteoarthritis. There is mild bilateral neural foraminal stenosis. There is mild central canal stenosis. C4-C5: There is severe bilateral uncovertebral joint osteoarthritis. There is severe bilateral facet joint osteoarthritis. There is mild bilateral neural foraminal stenosis. There is mild central canal stenosis. C5-C6: There is severe bilateral uncovertebral joint osteoarthritis. There is severe bilateral facet joint osteoarthritis. There is mild bilateral neural foraminal stenosis. There is mild central canal stenosis. C6-C7: There is severe bilateral uncovertebral joint osteoarthritis. There is mild bilateral facet sandee int osteoarthritis. There is mild right neural foraminal stenosis. There is mild central canal stenos is. C7-T1: There is mild bilateral uncovertebral joint osteoarthritis. There is severe bilateral facet sandee int osteoarthritis. There is mild bilateral neural foraminal stenosis. There is no central canal sten osis. IMPRESSION: 1. No fracture. 2. Severe cervical spondylosis, stable from 08/29/2019. Reviewed, dictated and finalized at location E. TH RECORDS TECHNOLOGY TEACHER
--- NOTE | ~2023-09-05 | XR_ITS ---
EXAMINATION: XR chest 1V portable DATE: 09/05/2023 20:51 INDICATION: Shoulder pain. TECHNIQUE: A single frontal view of the chest was obtained. COMPARISON: Chest view 03/12/2023 FINDINGS: There is mild atelectasis at left lung base. No pleural effusion or pneumothorax. The heart size is normal. IMPRESSION: 1. Mild atelectasis at left lung base. Reviewed, dictated and finalized at location E. L PICKLER
[2023-09-05 18:08] VITALS: BP 159/75; PULSE 83; RESP 20; TEMP 36.6; O2SAT 95
[2023-09-05 20:12] VITALS: BP 169/71; PULSE 67; RESP 15; O2SAT 98
--- NOTE | 2023-09-05 20:13 | PC.NURSE ---
Pt reports back and neck pain to this RN. Pt reports this is a chronic pain but he decided to come to the er today due to increasing severity. Pt states It feels like my blood supply is being cut off to my back and neck .
--- NOTE | 2023-09-05 20:14 | PC.NURSE ---
Pt reports his Primary doctor prescribed anti inflammatory meds but that they are not working.
--- NOTE | 2023-09-05 20:17 | ED.GENADULT ---
HPI - General Adult General Chief complaint: Unspecified Stated complaint: NECK AND SHOULDER TIGHT Time Seen by Provider: 09/05/23 20:17 Source: patient and family History of Present Illness HPI narrative: 88 YEARS OLD WHITE MALE CAME FROM HOME WITH HIS BY PRIVATE CAR COMPLAINING OF TIGHTNESS AT THE BACK OF THE NECK AND UPPER BACK BILATERALLY BEEN GOING FOR MONTHS, GOT WORSE OVER THE LAST FEW DAYS. PATIENT HAD SIMILAR SYMPTOMS IN THE PAST, RESOLVED ON PHYSICAL THERAPY, HAS SEEN HIS FAMILY PHYSICIAN 2 WEEKS AGO AND SCHEDULED FOR PHYSICAL THERAPY, COULD NOT GO BECAUSE OF THE COLD AND SNOW WEATHER. PATIENT REPORTED THAT PAIN GETS WORSE WITH MOVEMENT, BETTER REMAINING STILL, HE DENIES ANY FEVER, CHILLS, NAUSEA, VOMITING, CHEST PAIN, SHORTNESS OF BREATH, BACK PAIN, TINGLING NUMBNESS OR WEAKNESS OF THE UPPER OR LOWER EXTREMITIES. Related Data Home Medications Medication Instructions Recorded Confirmed aspirin 81 mg chewable tablet 81 mg DAILY 07/13/19 escitalopram oxalate 5 mg tablet mg 07/13/19 fluticasone propionate 50 2 intranasal 07/13/19 mcg/actuation nasal spray,suspension omeprazole 20 mg capsule,delayed 07/13/19 release atorvastatin 10 mg tablet 10 mg DAILY 07/17/19 07/17/19 dutasteride 0.5 mg capsule 0.5 mg PO DAILY 07/17/19 07/17/19 (Avodart) phenytoin sodium extended 100 mg 100 mg PO DAILY 07/17/19 07/17/19 capsule (Dilantin Extended) Eye Vitamin 03/25/21 duloxetine 30 mg capsule,delayed 30 mg PO DAILY 07/09/23 release Allergies Allergy/AdvReac Type Severity Reaction Status Date / Time No Known Allergies Allergy Verified 09/05/23 18:11 Review of Systems Review of Systems: All systems reviewed & are unremarkable except as noted in HPI and below PMFSH Past Medical History Medical History Allergic rhinitis Arthritis BPH (benign prostatic hyperplasia) Depression GERD (gastroesophageal reflux disease) History of BPH History of depression History of gastroesophageal reflux (GERD) History of seizures HLD (hyperlipidemia) Surgical History Surgical History History of hand surgery Finger surgery S/P cataract extraction and insertion of intraocular lens Bilateral Family History Family History Sibling Leukemia Other Diabetes mellitus Social History Social History Smoking status: Never smoker Substance use: never Gender identity (if verbalized by the patient): Male Exam Narrative: General appearance: Well-developed, well-nourished Skin: Normal color Head: Normocephalic, nontraumatic Eyes: Clear conjunctiva ENT: Oropharynx normal, ears normal, nose normal Neck: Supple, nontender Chest and respiratory: Airway patent, no respiratory distress, no accessory muscle use Heart: Regular rate/rhythm Abdomen: Soft, nontender, no organomegaly, quiet bowel sounds Vascular: Normal peripheral pulses, normal capillary refill. Musculoskeletal: Stiffness and limited range of motion of the neck and upper extremity bilaterally, diffuse tenderness across the upper back bilaterally, no bruises, no swelling, no rash Neurologic: Alert and oriented ?3, EXTRUSION SUPERVISOR is normal as tested, no gross motor deficit Course Vital Signs Vital signs: Vital Signs Temperature 36.6 C 09/05/23 18:08 Pulse Rate 83 09/05/23 18:08 Respiratory Rate 20 09/05/23 18:08 Blood Pressure 159/75 H 09/05/23 18:08 Pulse Oximetry 95 09/05/23 18:08 Oxygen Delivery Room Air 09/05/23 18:08 Temperature 3
--- NOTE | 2023-09-05 20:18 | ECG_ITS ---
Measurements Intervals Snook Rate: 62 P: 10 CO: 191 QRS: -55 QRSD: 98 T: 27 QT: 405 QTc: 414 Interpretive Statements SINUS RHYTHM LEFT ANTERIOR FASCICULAR BLOCK VOLTAGE CRITERIA FOR LVH BASELINE ARTIFACT- I, II, III, AVR, AVL, AVF ABNORMAL ECG COMPARED TO ECG 03/12/2023 19:00:10 LEFT ANTERIOR FASCICULAR BLOCK NOW PRESENT Electronically Signed On 09-05-2023 21:17:23 OIM ARCHITECT by Paulo Gamez D.O.
[2023-09-05 20:48] LABS: Basophils Percent Auto 0.4 % (0.2-1.2); Eosinophils Absolute Auto 0.1 K/mm3 (0-0.3); Eosinophils Percent Auto 1.2 % (0-4.4); Hematocrit 38.2 % (42.0-52.0); Immature Granulocyte Absolute 0.02 K/mm3 (0.00-0.031); Immature Granulocyte Percent A 0.3 % (0-0.5); Lymphocytes Absolute Auto 1.54 K/mm3 (0.9-3.2); Lymphocytes Percent Auto 21.3 % (18.3-44.2); Mean Corpuscular Hemoglobin 32.7 pg (26-34); Mean Corpuscular Volume 96.2 fl (80-100); Mean Platelet Volume 9.4 fl (7.4-10.4); Monocytes Absolute Auto 0.8 K/mm3 (0.1-0.6); Monocytes Percent Auto 10.5 % (2.6-8.5); Neutrophils Absolute Auto 4.8 K/mm3 (1.3-6.7); Neutrophils Percent Auto 66.3 % (45.5-73.1); Platelet Count Result 225 k/mm3 (150-375); Red Blood Count 3.97 M/mm3 (4.6-6.20); Red Cell Distribution Width 12.4 % (11.5-14.5); White Blood Count 7.2 K/mm3 (4.5-10.0)
[2023-09-05 20:59] LABS: Partial Thromboplastin Time 33.8 SECONDS (22.3-36.8); Prothrombin Time 13.1 Seconds (11.1-14.7)
[2023-09-05 21:00] LABS: Alanine Aminotransferase 32 U/L (6-50); Alkaline Phosphatase 101 U/L (38-126); Anion Gap 7 mmol/L (8-16); Aspartate Amino Transferase 29 U/L (17-59); Bilirubin,Total 0.5 mg/dL (0.2-1.3); Blood Urea Nitrogen 15 mg/dL (9-20); Calcium 8.8 mg/dL (8.4-10.2); Carbon Dioxide 23 mmol/L (22-30); Chloride 95 mmol/L (98-107); Estimated CRCL calculation 57 ml/min; Estimated Glomerular Filt Rate > 60; Glucose 103 mg/dL (65-110); Potassium 4.3 mmol/L (3.4-5.0); Sodium 125 mmol/L (137-145)
[2023-09-05 21:09] LABS: NT Pro B Type Natriuretic Pept 94 pg/mL (19.9-100)
[2023-09-05 21:12] LABS: Troponin I < 0.012 ng/mL (0.000-0.034)
[2023-09-05 21:13] LABS: Erythrocyte Sedimentation Rate 5 mm/hr (0-20)
[2023-09-05] MEDS: MORPHINE SULFATE INJ (*CRX) 10 MG/ML AMP 6 MG IM (21:34)
[2023-09-05] MEDS: diazePAM (*CRX) 5 MG TABLET 2.5 MG PO (21:34)
[2023-09-05] MEDS: ONDANSETRON HCL ODT 4 MG TABLET PO (21:34)
--- NOTE | 2023-09-05 22:10 | PM.IMHP ---
H&P: HPI History of Present Illness Date/Time: 09/05/23 22:10 Chief Complaint: Neck and upper back pain Narrative: Patient came in the company of his for evaluation of neck and upper back pain has been going on about 1 or 2 weeks, he described it as tightness, rated pain as 8/10 in severity prior to presentation to the ED, continuous, with no radiation, denies any fall, heart prior episode in the past that is similar, no chest pain, no jaw pain or shoulder pain. No cough congestion sore throat, no body ache. Workup in the ER included EKG that showed no acute ST T wave changes, troponin came back with normal, however patient was found to be hyponatremic with sodium level of 125. CT scan of chest and cervical spine revealed severe spondylosis of the cervical and thoracic spine. She had already been provided with morphine for pain control. Considering his nonspecific symptoms and finding of hyponatremia I was consulted to admit patient for observation. He stated the pain has improved though still present, could not rate the pain from the Review of Systems Review of Systems: All systems reviewed & are unremarkable except as noted in HPI and below PMFSH Past Medical History Medical History Allergic rhinitis Arthritis BPH (benign prostatic hyperplasia) Depression GERD (gastroesophageal reflux disease) History of BPH History of depression History of gastroesophageal reflux (GERD) History of seizures HLD (hyperlipidemia) Surgical History Surgical History History of hand surgery Finger surgery S/P cataract extraction and insertion of intraocular lens Bilateral Family History Family History Sibling Leukemia Other Diabetes mellitus Social History Social History Smoking status: Never smoker Substance use: never Gender identity (if verbalized by the patient): Male Meds Home Medications and Allergies Home Medications Medication Instructions Recorded Confirmed Type aspirin 81 mg chewable tablet 81 mg DAILY 07/13/19 History escitalopram oxalate 5 mg tablet mg 07/13/19 History fluticasone propionate 50 2 intranasal 07/13/19 History mcg/actuation nasal spray,suspension omeprazole 20 mg capsule,delayed 07/13/19 History release atorvastatin 10 mg tablet 10 mg DAILY 07/17/19 07/17/19 History dutasteride 0.5 mg capsule 0.5 mg PO DAILY 07/17/19 07/17/19 History (Avodart) phenytoin sodium extended 100 mg 100 mg PO DAILY 07/17/19 07/17/19 History capsule (Dilantin Extended) ibuprofen 600 mg tablet 600 mg PO TID PRN pain #30 tabs 09/15/19 Rx Eye Vitamin 03/25/21 History duloxetine 30 mg capsule,delayed 30 mg PO DAILY 07/09/23 History release Allergies Allergy/AdvReac Type Severity Reaction Status Date / Time No Known Allergies Allergy Verified 09/05/23 18:11 Vital Signs Vital Signs - 24 hr 09/05/23 18:08 09/05/23 20:12 Temperature 97.9 F Pulse Rate 83 67 Respiratory Rate 20 15 Blood Pressure 159/75 H 169/71 H Pulse Oximetry 95 98 Oxygen Delivery Room Air Exam Narrative: General: Alert and oriented x4, not in distress HEENT: Normocephalic atraumatic, EOMI, cervical and upper thoracic paraspinal tenderness bilateral but more on the left, range of motion intact. Revisit: Clear to auscultation bilaterally Cardiovascular: Regular rate and rhythm normal no gallop no edema Gastrointestinal: Nontender, nondistended, normal bowel sounds Back: No direct spinal tenderness, bilateral upper thoracic paraspinal tenderness more on the left Musculoskeletal: Range of motion intact Neurologic: No focal neurological deficit H&P: Results Labs Labs: Short CBC 09/05/23 Range/Units 20:42 WBC 7.2 (4.5-10.0) K/mm3 Hgb 13.0 L (14.0-18.0) g
[2023-09-05 22:17] VITALS: BP 147/70; PULSE 65; RESP 15; O2SAT 99
[2023-09-05] MEDS: SODIUM CHLORIDE 0.9% IV 1,000 ML 100 ML IV CONT (22:43)
[2023-09-05 22:59] LABS: Influenza A QL RT-PCR Negative (Negative); Influenza B QL RT-PCR Negative (Negative); SARS-CoV-2 RNA PCR Negative (Negative)
--- NOTE | 2023-09-05 23:07 | ADMGEN ---
This patient, Adalid Smith, was admitted to Medical Room 248-. Patient/family oriented to hospital policies and general routines including ID bracelet, bed and alarms, visiting hours, pain management, procedures, bathroom and other care routines, personal items, smoking policy, room service/diet, and visiting hours. Information on how to activate the Rapid Response Team has been discussed. Patient/Family are encouraged to report perceived risks to care and to ask questions if they do not understand what they are told or what they should do.
[2023-09-05 23:19] VITALS: BP 173/68; PULSE 95; RESP 18; TEMP 36.4; O2SAT 93
[2023-09-06] MEDS: ONDANSETRON INJ 4 MG/2 ML VIAL IV PUSH ×2 (00:19→10:09)
[2023-09-06 00:27] LABS: Glucose Point of Care 132 mg/dl (65-105)
[2023-09-06 03:25] VITALS: BMI 28.9
[2023-09-06 05:17] LABS: Basophils Percent Auto 0.4 % (0.2-1.2); Eosinophils Absolute Auto 0.1 K/mm3 (0-0.3); Eosinophils Percent Auto 1.2 % (0-4.4); Hematocrit 40.1 % (42.0-52.0); Hemoglobin 13.9 g/dL (14.0-18.0); Immature Granulocyte Absolute 0.03 K/mm3 (0.00-0.031); Immature Granulocyte Percent A 0.3 % (0-0.5); Lymphocytes Absolute Auto 2.05 K/mm3 (0.9-3.2); Lymphocytes Percent Auto 20.8 % (18.3-44.2); Mean Corpuscular HGB Conc 34.7 g/dl (32-36); Mean Corpuscular Hemoglobin 33.3 pg (26-34); Mean Corpuscular Volume 96.2 fl (80-100); Mean Platelet Volume 9.6 fl (7.4-10.4); Monocytes Absolute Auto 1.1 K/mm3 (0.1-0.6); Monocytes Percent Auto 11.2 % (2.6-8.5); Neutrophils Absolute Auto 6.5 K/mm3 (1.3-6.7); Neutrophils Percent Auto 66.1 % (45.5-73.1); Platelet Count Result 233 k/mm3 (150-375); Red Blood Count 4.17 M/mm3 (4.6-6.20); Red Cell Distribution Width 12.5 % (11.5-14.5); White Blood Count 9.8 K/mm3 (4.5-10.0)
[2023-09-06 05:30] LABS: Anion Gap 6 mmol/L (8-16); Blood Urea Nitrogen 15 mg/dL (9-20); Calcium 8.6 mg/dL (8.4-10.2); Carbon Dioxide 27 mmol/L (22-30); Chloride 94 mmol/L (98-107); Estimated CRCL calculation 57 ml/min; Estimated Glomerular Filt Rate > 60; Glucose 105 mg/dL (65-110); Potassium 4.5 mmol/L (3.4-5.0); Sodium 127 mmol/L (137-145)
[2023-09-06 06:00] VITALS: BP 145/56; PULSE 83; RESP 18; TEMP 36.7; O2SAT 97
[2023-09-06] MEDS: OPTI-GEN TAB 1 TABLET PO (09:20)
[2023-09-06] MEDS: PHENYTOIN SODIUM 100 MG EXTENDED RELEASE CAP 300 MG PO (09:20)
[2023-09-06] MEDS: ASPIRIN 81 MG CHEWABLE TABLET PO (09:21)
[2023-09-06] MEDS: PANTOPRAZOLE 40 MG TABLET PO (09:21)
[2023-09-06] MEDS: MULTIVITAMINS /C LUTEIN (CENTRUM SILVER) TABLET *BKC 1 TAB PO (09:21)
[2023-09-06] MEDS: SODIUM CHLORIDE 500 MG TABLET 1000 MG PO ×2 (09:22→17:01)
[2023-09-06] MEDS: SODIUM CHLORIDE 0.9% IV 1,000 ML 100 ML IV CONT (09:31)
[2023-09-06] MEDS: LIDOCAINE 5% PATCH 1 PATCH TRANSDERM (12:18)
[2023-09-06] MEDS: PHENYTOIN SODIUM 100 MG EXTENDED RELEASE CAP PO ×2 (12:19→17:01)
[2023-09-06] MEDS: DUTASTERIDE 0.5 MG CAPSULE PO (12:19)
[2023-09-06] MEDS: DULoxetine HCL 30 MG CAPSULE.DR PO (12:19)
--- NOTE | 2023-09-06 14:25 | PM.IMPN ---
Progress Note: A&P Assessment and Plan (1) Spondylosis of cervical joint: Code(s): M47.812 - Spondylosis without myelopathy or radiculopathy, cervical region Status: Acute (2) Acute hyponatremia: Code(s): E87.1 - Hypo-osmolality and hyponatremia Status: Acute (3) Cervicalgia: Code(s): M54.2 - Cervicalgia Status: Acute (4) Chronic upper back pain: Code(s): M54.9 - Dorsalgia, unspecified; G89.29 - Other chronic pain Status: Acute (5) GERD (gastroesophageal reflux disease): Code(s): K21.9 - Gastro-esophageal reflux disease without esophagitis Status: Acute (6) Otitis media: Qualifiers: Chronicity: acute Laterality: left Otitis media type: serous Recurrence: non-recurrent Qualified Code(s): H65.02 - Acute serous otitis media, left ear Code(s): H66.90 - Otitis media, unspecified, unspecified ear Status: Acute Plan Continue with current medications Patient is likely symptomatic due to his hyponatremia Sodium level improved slightly from 125 yesterday at 127 today Continue with the IV hydration with normal saline; rate decreased from 100 to 75 cc per hour Strict input and output monitoring Sodium chloride 1000 mg p.o. b.i.d. ordered Monitor labs and electrolytes closely Check CPK level Patient encouraged to use lidocaine patch for pain control Cntinue with p.r.n. meds for pain control Encourage ambulation with assistance PT/OT evaluation DC planning in a.m. if he remains stable ? Patient seen and examined at bedside during my morning rounds ? Collaborated with patient's nurse at the bedside in detail and addressed all concerns ? Labs, electrolytes, radiology, investigations and test results reviewed ? Consult/Nursing/Ancilliary notes on the chart reviewed and appreciated ? Spoke with patient/ at the bedside and answered all the questions that they had Repeat labs in a.m. Electrolyte replacement as per protocol. Patient will be monitored very closely on the floor. Further recommendations as per the hospital course. Time Spent With Patient Time with patient: 25 - 35 minutes Subjective Date/time seen: 09/06/23 14:25 Interval history: Patient seen and evaluated bedside. Still feels tired. Complains of generalized aches and pains. Has questions about his meds. Review of Systems Review of Systems: 14 systems were reviewed with pertinent positives and negatives per HPI. Except as documented in the HPI/progress notes, all other systems were reviewed and are negative. All systems reviewed & are unremarkable except as noted in HPI and below Exam Narrative: PHYSICAL EXAMINATION: Vital signs: Please see the chart General physical exam: Patient sitting in bed, pleasant and cooperative with exam, appears to be weak and tired Head/eyes: Atraumatic, EOMI, PERRLA ENT: Moist mucous membranes, nasal passages clear Neck: Supple, full range of motion, trachea midline CVS: S1 + S2, regular rate and rhythm, no murmurs Respiratory: Bilaterally fair air entry in both lung babcock, mild B/L crackles, symmetric chest expansion, no distress Abdomen: Soft, non-tender, bowel sounds +ve, no organomegaly Extremities: No clubbing, no cyanosis, no edema, no calf tenderness Musculoskeletal: Moves all, adequate range of motion, +/-muscle spasms, complains of generalized aches and pains Skin: Warm, dry, no jaundice, no cyanosis Neurological: Awake, alert, oriented x 3, cranial nerves II-XII intact, no focal neurological deficits Psychiatric: Normal mood, non suicidal Objective Data Vital Signs Vital Signs: Vital Signs - 24 hr 09/05/23 18:08 09/05/23 20:12 09/05/23 22:17 Temperature 36.6 C Pulse Rate 83 67 65 Respiratory Rate 20 15 15 Blood Pressure 159/75 H 169/71 H 147/70 H Pulse Oximetry 95 98 99 Oxygen Delivery Room Air 09/05/23 23:19 09/06/23 00:50 09/06/23 06:00 Temperature 36.4 C 36.7 C Pulse Rate 95 83 Respirator
[2023-09-06 15:45] VITALS: BP 166/71; PULSE 72; RESP 16; TEMP 36.8; O2SAT 97
[2023-09-06 16:17] LABS: Creatine Kinase 36 U/L (55-170)
[2023-09-06 20:05] VITALS: BP 143/67; PULSE 70; RESP 18; TEMP 36.9; O2SAT 96
[2023-09-06] MEDS: ORPHENADRINE CITRATE 100 MG TABLET.ER PO (21:47)
[2023-09-06] MEDS: ATORVASTATIN 10 MG TABLET PO (21:47)
[2023-09-06] MEDS: SODIUM CHLORIDE 0.9% IV 1,000 ML 75 ML IV CONT (21:48)
[2023-09-06] MEDS: polyethylene glycoL 3350 17 GM POWD.PACK PO (21:48)
[2023-09-07 05:54] LABS: Basophils Percent Auto 0.5 % (0.2-1.2); Eosinophils Absolute Auto 0.1 K/mm3 (0-0.3); Eosinophils Percent Auto 2.3 % (0-4.4); Immature Granulocyte Absolute 0.01 K/mm3 (0.00-0.031); Immature Granulocyte Percent A 0.2 % (0-0.5); Lymphocytes Absolute Auto 1.41 K/mm3 (0.9-3.2); Lymphocytes Percent Auto 25.1 % (18.3-44.2); Mean Corpuscular HGB Conc 33.3 g/dl (32-36); Mean Corpuscular Hemoglobin 32.8 pg (26-34); Mean Corpuscular Volume 98.4 fl (80-100); Mean Platelet Volume 9.8 fl (7.4-10.4); Monocytes Absolute Auto 0.7 K/mm3 (0.1-0.6); Monocytes Percent Auto 11.9 % (2.6-8.5); Neutrophils Absolute Auto 3.4 K/mm3 (1.3-6.7); Platelet Count Result 206 k/mm3 (150-375); Red Blood Count 3.66 M/mm3 (4.6-6.20); Red Cell Distribution Width 12.9 % (11.5-14.5); White Blood Count 5.6 K/mm3 (4.5-10.0)
[2023-09-07 05:59] LABS: Anion Gap 2 mmol/L (8-16); Blood Urea Nitrogen 11 mg/dL (9-20); Calcium 8.4 mg/dL (8.4-10.2); Carbon Dioxide 27 mmol/L (22-30); Chloride 101 mmol/L (98-107); Estimated CRCL calculation 57 ml/min; Estimated Glomerular Filt Rate > 60; Glucose 97 mg/dL (65-110); Magnesium 2.1 mg/dL (1.6-2.3); Phosphorus 3.4 mg/dL (2.5-4.5); Potassium 4.5 mmol/L (3.4-5.0); Sodium 130 mmol/L (137-145)
[2023-09-07 06:00] VITALS: BP 153/79; PULSE 78; RESP 18; TEMP 36.6; O2SAT 98
[2023-09-07 06:01] LABS: Creatine Kinase 66 U/L (55-170)
[2023-09-07] MEDS: polyethylene glycoL 3350 17 GM POWD.PACK PO (08:39)
[2023-09-07] MEDS: PHENYTOIN SODIUM 100 MG EXTENDED RELEASE CAP PO ×2 (08:40→12:18)
[2023-09-07] MEDS: ASPIRIN 81 MG CHEWABLE TABLET PO (08:40)
[2023-09-07] MEDS: SODIUM CHLORIDE 500 MG TABLET 1000 MG PO (08:40)
[2023-09-07] MEDS: ORPHENADRINE CITRATE 100 MG TABLET.ER PO (08:40)
[2023-09-07] MEDS: MULTIVITAMINS /C LUTEIN (CENTRUM SILVER) TABLET *BKC 1 TAB PO (08:40)
[2023-09-07] MEDS: PANTOPRAZOLE 40 MG TABLET PO (08:40)
[2023-09-07] MEDS: OPTI-GEN TAB 1 TABLET PO (08:40)
[2023-09-07] MEDS: LIDOCAINE 5% PATCH 1 PATCH TRANSDERM (08:41)
[2023-09-07] MEDS: SODIUM CHLORIDE 0.9% IV 1,000 ML 75 ML IV CONT (12:17)
[2023-09-07] MEDS: DUTASTERIDE 0.5 MG CAPSULE PO (12:18)
[2023-09-07] MEDS: DULoxetine HCL 30 MG CAPSULE.DR PO (12:18)
--- NOTE | 2023-09-07 13:31 | PM.DS ---
DS: Admitting Diagnosis Discharge Date 09/07/2023: Admitting Diagnosis Acute hyponatremia Cervicalgia Spondylosis of cervical joint DS: Discharge Diagnosis Discharge Diagnosis (1) Spondylosis of cervical joint: Code(s): M47.812 - Spondylosis without myelopathy or radiculopathy, cervical region Status: Acute (2) Acute hyponatremia: Code(s): E87.1 - Hypo-osmolality and hyponatremia Status: Acute (3) Cervicalgia: Code(s): M54.2 - Cervicalgia Status: Acute (4) Chronic upper back pain: Code(s): M54.9 - Dorsalgia, unspecified; G89.29 - Other chronic pain Status: Acute (5) GERD (gastroesophageal reflux disease): Code(s): K21.9 - Gastro-esophageal reflux disease without esophagitis Status: Acute DS: Summary Hospital Course Reason for hospitalization: Patient came in the company of his for evaluation of neck and upper back pain has been going on about 1 or 2 weeks Hospital Course: H&P: HPI History of Present Illness Date/Time: 09/05/23? 22:10 Chief Complaint: Neck and upper back pain Narrative: Patient came in the company of his for evaluation of neck and upper back pain has been going on about 1 or 2 weeks, he described it as tightness, rated pain as 8/10 in severity prior to presentation to the ED, continuous, with no radiation, denies any fall, heart prior episode in the past that is similar, no chest pain, no jaw pain or shoulder pain.? No cough congestion sore throat, no body ache.? Workup in the ER included EKG that showed no acute ST T wave changes, troponin came back with normal, however patient was found to be hyponatremic with sodium level of 125.? CT scan of chest and cervical spine revealed severe spondylosis of the cervical and thoracic spine. She had already been provided with morphine for pain control.? Considering his nonspecific symptoms and finding of hyponatremia I was consulted to admit patient for observation.? 09/06/2023: Continue with current medications Patient is likely symptomatic due to his hyponatremia Sodium level improved slightly from 125 yesterday at 127 today Continue with the IV hydration with normal saline; rate decreased from 100 to 75 cc per hour Strict input and output monitoring Sodium chloride 1000 mg p.o. b.i.d. ordered Monitor labs and electrolytes closely Check CPK level Patient encouraged to use lidocaine patch for pain control Cntinue with p.r.n. meds for pain control Encourage ambulation with assistance PT/OT evaluation DC planning in a.m. if he remains stable 09/07/2023: Patient feels better today. His sodium level has improved to 130. He is feeling better and wants to go home. He used lidocaine patches on the neck which helped with his cervical pain symptoms. I will prescribe him 1 more week of oral sodium pills at home and a week's supply of lidocaine patches upon discharge. He is advised to follow up closely with his PCP as an outpatient. He is stable from medical standpoint to be discharged. Status at Discharge Functional status at discharge: independent ambulation Overall status at discharge: patient is progressing back to baseline Time Spent with Patient Time attestation: Total time spent providing and/or coordinating discharge services: Time spent: Greater than 30 minutes Exam Narrative: Vital signs: Please see the chart General physical exam:? Patient sitting in bed, pleasant and cooperative with exam, appears to be weak and tired Head/eyes: Atraumatic, EOMI, PERRLA ENT: Moist mucous membranes, nasal passages clear Neck: Supple, full range of motion, trachea midline CVS: S1 + S2, regular rate and rhythm, no murmurs Respiratory: Bilaterally fair air entry in both lung babcock, mild B/L crackles, symmetric chest expansion, no distress Abdomen: Soft, non-tender, bowel sounds +ve, no organomegaly Extremities: No clubbing, no cyanosis, no edema, no calf tenderness Musculoskeletal: Moves all, adeq
== END 2023-09-07 14:10 | disposition home or self-care (01) ==
LOC: ANHED 22:10 → ANH2MED 22:50
PROVIDERS: Admitting Provider Student in an Organized Health Care Education/Training Program; Emergency Provider Emergency Medicine; PCP Physician Assistant; Visit Provider Family Medicine
DX: M47.812 Spondylosis without myelopathy or radiculopathy, cervical region (principal); M47.814 Spondylosis without myelopathy or radiculopathy, thoracic region; H65.02 Acute serous otitis media, left ear; E87.1 Hypo-osmolality and hyponatremia; G89.29 Other chronic pain; K21.9 Gastro-esophageal reflux disease without esophagitis; J98.11 Atelectasis; N40.0 Benign prostatic hyperplasia without lower urinary tract symptoms; Z20.822 Contact with and (suspected) exposure to COVID-19; R94.31 Abnormal electrocardiogram [ECG] [EKG]; F32.A Depression, unspecified; G40.909 Epilepsy, unspecified, not intractable, without status epilepticus; E78.5 Hyperlipidemia, unspecified; Z79.1 Long term (current) use of non-steroidal anti-inflammatories (NSAID); Z79.82 Long term (current) use of aspirin; Z79.899 Other long term (current) drug therapy
CPT/HCPCS: 36415; 71045; 71250; 72125; 80048; 80053; 82550; 82948; 83735; 83880; 84100; 84484; 85025; 85610; 85652; 85730; 87636; 93005; 96361; 96372; 96374; 96376; 97161; 97165; 97530; 99285; A9270; G0378; J2270; J2405; J7030

== ENCOUNTER 2023-09-07 20:32 | Emergency (ER) | payer MEDICARE, SELFPAY ==
--- NOTE | ~2023-09-07 | XR_ITS ---
Portable chest x-ray Comparison: 09/05/2023 Clinical History: Fatigue Findings: There is stable linear scarring left lung base. Lungs are otherwise clear. Cardiomediasti nal silhouette is stable. Bones and soft tissues are unremarkable. Impression: Linear scarring left lung base, otherwise clear lungs. Reviewed, dictated and finalized at [facility]. [employer] ATT[employer]ER [employer] Impression: Linear scarring left lung base, otherwise clear lungs.
[2023-09-07 20:36] VITALS: BP 155/74; PULSE 79; RESP 20; TEMP 37.1; O2SAT 98
[2023-09-07 22:04] LABS: Basophils Absolute Auto 0.1 K/mm3 (0.0-0.1); Basophils Percent Auto 0.6 % (0.2-1.2); Eosinophils Absolute Auto 0.1 K/mm3 (0-0.3); Eosinophils Percent Auto 1.4 % (0-4.4); Hematocrit 37.5 % (42.0-52.0); Hemoglobin 12.7 g/dL (14.0-18.0); Immature Granulocyte Absolute 0.01 K/mm3 (0.00-0.031); Immature Granulocyte Percent A 0.1 % (0-0.5); Lymphocytes Percent Auto 18.7 % (18.3-44.2); Mean Corpuscular HGB Conc 33.9 g/dl (32-36); Mean Corpuscular Hemoglobin 33.4 pg (26-34); Mean Corpuscular Volume 98.7 fl (80-100); Mean Platelet Volume 9.6 fl (7.4-10.4); Monocytes Absolute Auto 0.9 K/mm3 (0.1-0.6); Monocytes Percent Auto 10.7 % (2.6-8.5); Neutrophils Absolute Auto 5.5 K/mm3 (1.3-6.7); Neutrophils Percent Auto 68.5 % (45.5-73.1); Platelet Count Result 212 k/mm3 (150-375); Red Cell Distribution Width 12.8 % (11.5-14.5)
[2023-09-07 22:25] LABS: Anion Gap 4 mmol/L (8-16); Blood Urea Nitrogen 14 mg/dL (9-20); Calcium 8.6 mg/dL (8.4-10.2); Carbon Dioxide 26 mmol/L (22-30); Chloride 99 mmol/L (98-107); Estimated CRCL calculation 61 ml/min; Estimated Glomerular Filt Rate > 60; Glucose 135 mg/dL (65-110); Potassium 4.1 mmol/L (3.4-5.0); Sodium 129 mmol/L (137-145)
[2023-09-08 00:40] VITALS: BP 163/80; PULSE 66; RESP 20; O2SAT 99
--- NOTE | 2023-09-08 00:57 | ECG_ITS ---
Measurements Intervals [place] Rate: 66 P: -4 IA: 174 QRS: -53 QRSD: 108 T: 19 QT: 403 QTc: 425 Interpretive Statements SINUS RHYTHM LEFT ANTERIOR FASCICULAR BLOCK VOLTAGE CRITERIA FOR LVH ABNORMAL ECG COMPARED TO ECG 09/05/2023 20:33:34 NO SIGNIFICANT CHANGES Electronically Signed On 09-08-2023 6:08:22 OFFICE SUPPORT by Paulo Gamez D.O.
--- NOTE | 2023-09-08 00:59 | ED.GENADULT ---
HPI - General Adult General Chief complaint: Unspecified Stated complaint: bilateral arm weakness Time Seen by Provider: 09/08/23 00:58 History of Present Illness HPI narrative: This is an 88-year-old male presenting ED with generalized fatigue. Patient was just discharged from our hospital earlier today after a possible diagnosis of hyponatremia. At discharge is morning he was feeling well. He came back because he fell asleep in his recliner and when he woke up it took him several minutes for him to get back up out of the recliner. His then brought him back for re-evaluation. At this time the patient says has no complaints. During our interview his to his primary care physician had wanted to increase his antidepressant medication dosing. Patient has not increased the medications because he was concerned about the side effects. The patient does notice that he has lost interest in things he wants to enjoy a, feels guilty, has low energy and difficulty concentrating. No SI Related Data Home Medications Medication Instructions Recorded Confirmed aspirin 81 mg chewable tablet 81 mg DAILY 07/13/19 09/05/23 fluticasone propionate 50 50 mcg intranasal DIRECTED PRN 07/13/19 09/05/23 mcg/actuation nasal Congestion spray,suspension omeprazole 20 mg capsule,delayed 20 mg PO DAILY 07/13/19 09/05/23 release atorvastatin 10 mg tablet 10 mg DAILY 07/17/19 09/05/23 dutasteride 0.5 mg capsule 0.5 mg PO DAILY 07/17/19 09/05/23 (Avodart) phenytoin sodium extended 100 mg 300 mg PO DAILY 07/17/19 09/05/23 capsule (Dilantin Extended) Eye Vitamin 1 tablet EACH EYE DAILY 03/25/21 09/05/23 duloxetine 30 mg capsule,delayed 30 mg PO DAILY 07/09/23 09/05/23 release Centrum Silver Men 1 tablet PO DAILY 09/05/23 09/05/23 meloxicam 15 mg tablet 15 mg PO DAILY 09/05/23 09/05/23 Allergies Allergy/AdvReac Type Severity Reaction Status Date / Time No Known Allergies Allergy Verified 09/07/23 20:40 [facility] Past Medical History Medical History Allergic rhinitis Arthritis BPH (benign prostatic hyperplasia) Depression GERD (gastroesophageal reflux disease) History of BPH History of depression History of gastroesophageal reflux (GERD) History of seizures HLD (hyperlipidemia) Surgical History Surgical History History of hand surgery Finger surgery S/P cataract extraction and insertion of intraocular lens Bilateral Family History Family History Sibling Leukemia Other Diabetes mellitus Social History Social History Smoking status: Never smoker Alcohol intake: never Substance use: never Do You Feel Safe in your Home?: Yes Lack of Transportation: No Lack of Food: Never True Current Housing: I Have Housing Concerned About Future Housing: No Difficulty Paying Gas/Electric Bills: No Difficulty Paying for Meds: No Currently Unemployed: No Education: Master's Degree or Higher Difficulty w/ Childcare or Family Care: No Gender identity (if verbalized by the patient): Male Spiritual care concerns: No Exam Narrative: APPEARANCE: No apparent distress. Head: atraumatic. EYES: EOMI, NOSE: Atraumatic NECK: Trachea midline RESPIRATORY: No increased rate of breathing clear to auscultation CARDIOVASCULAR: RRR, no peripheral edema ABDOMINAL: Non-distended soft nontender MUSCULOSKELETAl: No obvious deformities NEURO: Alert. Moving 4/4 extremities SKIN:: Warm, dry. Normal color PSYCHIATRIC: Depressed Course Vital Signs Vital signs: Vital Signs Temperature 98.8 F 09/07/23 20:36 Pulse Rate 79 09/07/23 20:36 Respiratory Rate 20 09/07/23 20:36 Blood Pressure 155/74 H 09/07/23 20:36 Pulse Oximetry 98 09/07/23 20:36 Oxygen Delivery Room Air
[2023-09-08 01:30] LABS: Appearance Urine Clear (Clear); Blood Urine Negative (Negative); Color Urine Yellow (Yellow); Glucose Urine UA Negative (Negative); Ketones Urine Negative (Negative); Nitrate Urine Negative (Negative); Protein Urine Negative (Negative); Specific Grav Ur 1.017 (1.001-1.035)
[2023-09-08 01:31] LABS: Bilirubin Urine Negative (Negative); Leukocyte Esterase Ur Negative LEU/UL (Negative); Urobilinogen Urine 0.2 mg/dL (<2.0)
[2023-09-08 01:38] LABS: Add Urine Microscopic? NO
== END 2023-09-08 02:30 | disposition home or self-care (01) ==
PROVIDERS: Emergency Medicine; Emergency Provider Emergency Medicine; PCP Physician Assistant
DX: R53.83 Other fatigue (principal); F32.A Depression, unspecified; E78.5 Hyperlipidemia, unspecified; N40.0 Benign prostatic hyperplasia without lower urinary tract symptoms; M19.90 Unspecified osteoarthritis, unspecified site; K21.9 Gastro-esophageal reflux disease without esophagitis; Z79.82 Long term (current) use of aspirin
CPT/HCPCS: 36415; 71045; 80048; 81003; 84443; 85025; 93005; 99283

== ENCOUNTER 2024-04-29 17:00 | Emergency (ER) | payer MEDICARE, SELFPAY ==
--- NOTE | ~2024-04-29 | XR_ITS ---
XR chest 2V Ordering provider: Barbara Alejandra APRN History: 89 years Male with . Cough congestion times 2-3 weeks . Comparison: September 08, 2023 FINDINGS: MEDIASTINUM: The cardiac silhouette is not enlarged. LUNGS: No infiltrates, effusions or pneumothorax. OTHER: No free air under the diaphragm. Degenerative changes of the spine. IMPRESSION: No acute cardiopulmonary pathology. Reviewed, dictated and finalized at location A.
[2024-04-29 17:09] VITALS: BP 161/80; PULSE 76; RESP 19; TEMP 37.3; O2SAT 92
--- NOTE | 2024-04-29 17:32 | ED.URI ---
HPI - URI/Sore Throat General Chief Complaint: Upper Respiratory Infection Stated Complaint: Sinus Time Seen by Provider: 04/29/24 17:32 Source: patient, RN notes reviewed and old records reviewed Mode of arrival: ambulatory Limitations: no limitations History of Present Illness HPI Narrative: 89-year-old male presents to the [facility] with with very vague symptoms. Patient states that he has had a cough and chest congestion for about 3 weeks. Has had right-sided rib pain worse with coughing and deep breathing. Reports that he takes half of a Mucinex. Patient in no acute distress Patient not a very good historian Related Data Home Medications Medication Instructions Recorded Confirmed aspirin 81 mg chewable tablet 81 mg DAILY 07/13/19 04/29/24 fluticasone propionate 50 50 mcg intranasal DIRECTED PRN 07/13/19 04/29/24 mcg/actuation nasal Congestion spray,suspension omeprazole 20 mg capsule,delayed 20 mg PO DAILY 07/13/19 04/29/24 release atorvastatin 10 mg tablet 10 mg DAILY 07/17/19 04/29/24 dutasteride 0.5 mg capsule 0.5 mg PO DAILY 07/17/19 04/29/24 (Avodart) phenytoin sodium extended 100 mg 300 mg PO DAILY 07/17/19 04/29/24 capsule (Dilantin Extended) Eye Vitamin 1 tablet EACH EYE DAILY 03/25/21 04/29/24 duloxetine 30 mg capsule,delayed 30 mg PO DAILY 07/09/23 04/29/24 release Centrum Silver Men 1 tablet PO DAILY 09/05/23 04/29/24 meloxicam 15 mg tablet 15 mg PO DAILY 09/05/23 04/29/24 Allergies Allergy/AdvReac Type Severity Reaction Status Date / Time No Known Allergies Allergy Verified 04/29/24 17:12 Review of Systems Review of Systems: All systems reviewed & are unremarkable except as noted in HPI and below Constitutional: Constitutional: Reports no additional constitutional complaints Eyes: Eyes: Reports no additional eye complaints ENT: Reports system reviewed and no additional complaints, except as documented Cardiovascular: Cardiovascular: Reports no additional cardiovascular complaints, Denies chest pain and Denies dyspnea Respiratory: Respiratory: Reports as per HPI, Reports chest congestion, Reports cough and Denies dyspnea Gastrointestinal: Gastrointestinal: Reports no additional gastrointestinal complaints, Denies abdominal pain, Denies nausea and Denies vomiting Musculoskeletal: Musculoskeletal: Reports no additional musculoskeletal complaints Integumentary/Breasts: Skin/Breast: Reports system reviewed and no additional complaints, except as docu Neurologic: Reports system reviewed and no additional complaints, except as documented Psychiatric: Psychiatric: Reports no additional psychiatric complaints Allergic/Immunologic: Allergic/Immunologic: Reports no additional allergic/immunologic complaints [facility] Past Medical History Medical History Allergic rhinitis Arthritis BPH (benign prostatic hyperplasia) Depression GERD (gastroesophageal reflux disease) History of BPH History of depression History of gastroesophageal reflux (GERD) History of seizures HLD (hyperlipidemia) Surgical History Surgical History History of hand surgery Finger surgery S/P cataract extraction and insertion of intraocular lens Bilateral Family History Family History Sibling Leukemia Other Diabetes mellitus Social History Social History Smoking status: Never smoker Alcohol intake: never Substance use: never Do You Feel Safe in your Home?: Yes Lack of Transportation: No Lack of Food: Never True Current Housing: I Have Housing Concerned About Future Housing: No Difficulty Paying Gas/Electric Bills: No Difficulty Paying for Meds: No Currently Unemployed: No Education: Master's Degree or Higher Difficulty w/ Childcare or Family Care:
== END 2024-04-29 18:10 | disposition home or self-care (01) ==
PROVIDERS: Emergency Provider Nurse Practitioner; PCP Physician Assistant
DX: J40 Bronchitis, not specified as acute or chronic (principal); M19.90 Unspecified osteoarthritis, unspecified site; K21.9 Gastro-esophageal reflux disease without esophagitis; N40.0 Benign prostatic hyperplasia without lower urinary tract symptoms; E78.5 Hyperlipidemia, unspecified; G40.909 Epilepsy, unspecified, not intractable, without status epilepticus; Z96.1 Presence of intraocular lens; Z98.42 Cataract extraction status, left eye; Z98.41 Cataract extraction status, right eye
CPT/HCPCS: 71046; 99213; G0463

== ENCOUNTER 2024-04-29 20:33 | Emergency (ER) | payer MEDICARE, SELFPAY ==
--- NOTE | ~2024-04-29 | XR_ITS ---
Portable chest x-ray Comparison: 04/29/2024 Clinical History: Chest pain Findings: There is linear atelectasis at the left lung base, lungs are otherwise clear. Cardiomedia stinal silhouette is stable. Bones and soft tissues are unremarkable. Impression: Linear atelectasis left lung base, otherwise clear lungs. Reviewed, dictated and finalized at location . Impression: Linear atelectasis left lung base, otherwise clear lungs.
--- NOTE | 2024-04-29 20:49 | ECG_ITS ---
Test Date: 2024-04-29 20:54:28 Measurements Intervals [place] Rate: 75 P: 46 WV: 156 QRS: -63 QRSD: 109 T: 67 QT: 385 QTc: 431 Interpretive Statements SINUS RHYTHM INCOMPLETE RIGHT BUNDLE BRANCH BLOCK LEFT ANTERIOR FASCICULAR BLOCK POSSIBLE LEFT VENTRICULAR HYPERTROPHY CANNOT R/O SEPTAL INFARCT, AGE INDETERMINATE ABNORMAL ECG No previous ECG available for comparison Electronically Signed On 04-30-2024 06:45:30 CDT by Paulo Gamez D.O.
[2024-04-29 21:07] VITALS: BP 159/74; PULSE 78; RESP 18; TEMP 37; O2SAT 95
[2024-04-29 21:24] LABS: Basophils Percent Auto 0.4 % (0.2-1.2); Eosinophils Absolute Auto 0.1 K/mm3 (0-0.3); Eosinophils Percent Auto 1.4 % (0-4.4); Hematocrit 37.2 % (42.0-52.0); Hemoglobin 13.1 g/dL (14.0-18.0); Immature Granulocyte Absolute 0.01 K/mm3 (0.00-0.031); Immature Granulocyte Percent A 0.2 % (0-0.5); Lymphocytes Absolute Auto 1.23 K/mm3 (0.9-3.2); Lymphocytes Percent Auto 23.8 % (18.3-44.2); Mean Corpuscular HGB Conc 35.2 g/dl (32-36); Mean Corpuscular Hemoglobin 33.8 pg (26-34); Mean Corpuscular Volume 95.9 fl (80-100); Mean Platelet Volume 9.3 fl (7.4-10.4); Monocytes Absolute Auto 0.5 K/mm3 (0.1-0.6); Monocytes Percent Auto 9.1 % (2.6-8.5); Neutrophils Absolute Auto 3.4 K/mm3 (1.3-6.7); Neutrophils Percent Auto 65.1 % (45.5-73.1); Platelet Count Result 191 k/mm3 (150-375); Red Blood Count 3.88 M/mm3 (4.6-6.20); Red Cell Distribution Width 13.2 % (11.5-14.5); White Blood Count 5.2 K/mm3 (4.5-10.0)
[2024-04-29 21:35] LABS: Alanine Aminotransferase 26 U/L (6-50); Albumin Level 4.1 g/dL (3.5-5.1); Alkaline Phosphatase 99 U/L (38-126); Anion Gap 8 mmol/L (4-12); Aspartate Amino Transferase 29 U/L (17-59); Bilirubin,Total 0.3 mg/dL (0.2-1.3); Blood Urea Nitrogen 16 mg/dL (9-20); Calcium 8.8 mg/dL (8.4-10.2); Carbon Dioxide 25 mmol/L (22-30); Chloride 94 mmol/L (98-107); Estimated Glomerular Filt Rate > 60; Glucose 131 mg/dL (65-110); Lipase 73 U/L (23-300); Potassium 4.1 mmol/L (3.4-5.0); Prothrombin Time 12.9 Seconds (11.1-14.7); Sodium 127 mmol/L (137-145)
[2024-04-29 21:36] LABS: Partial Thromboplastin Time 32.2 Seconds (22.3-36.8)
[2024-04-29 21:45] LABS: Troponin I < 0.012 ng/mL (0.000-0.034)
[2024-04-29 23:49] VITALS: BP 177/96; PULSE 75; RESP 16; O2SAT 97
[2024-04-30 00:12] VITALS: BP 157/77; PULSE 76; RESP 17; O2SAT 96
--- NOTE | 2024-04-30 00:20 | ECG_ITS ---
Test Date: 2024-04-30 00:27:32 Measurements Intervals [place] Rate: 70 P: 41 SD: 169 QRS: -63 QRSD: 116 T: 63 QT: 399 QTc: 432 Interpretive Statements SINUS RHYTHM INCOMPLETE RIGHT BUNDLE BRANCH BLOCK LEFT ANTERIOR FASCICULAR BLOCK CANNOT R/O SEPTAL INFARCT, AGE INDETERMINATE BASELINE ARTIFACT- I, II, AVR, AVL ABNORMAL ECG Compared to ECG 04/29/2024 20:54:28 No significant changes Electronically Signed On 04-30-2024 06:49:56 CDT by Paulo Gamez D.O.
[2024-04-30 00:57] LABS: Troponin I < 0.012 ng/mL (0.000-0.034)
[2024-04-30 03:00] LABS: D Dimer < 0.27 ug/mL (<0.48)
--- NOTE | 2024-04-30 03:24 | ED.GENADULT ---
HPI - General Adult General Chief complaint: Recheck/Abnormal Lab/Rx Stated complaint: high blood pressure Time Seen by Provider: 04/30/24 00:25 History of Present Illness HPI narrative: 89-year-old male presents to the emergency department for evaluation for right-sided chest pain. Patient was initially seen in the Urgent Care for right-sided chest pain and was diagnosed with bronchitis he was told to present to the emergency department if he had any worsening symptoms. Patient states he began developing some epigastric pain so he presented to the ED for evaluation. At time of evaluation patient states the pain is resolved Related Data Home Medications Medication Instructions Recorded Confirmed aspirin 81 mg chewable tablet 81 mg DAILY 07/13/19 04/29/24 fluticasone propionate 50 50 mcg intranasal DIRECTED PRN 07/13/19 04/29/24 mcg/actuation nasal Congestion spray,suspension omeprazole 20 mg capsule,delayed 20 mg PO DAILY 07/13/19 04/29/24 release atorvastatin 10 mg tablet 10 mg DAILY 07/17/19 04/29/24 dutasteride 0.5 mg capsule 0.5 mg PO DAILY 07/17/19 04/29/24 (Avodart) phenytoin sodium extended 100 mg 300 mg PO DAILY 07/17/19 04/29/24 capsule (Dilantin Extended) Eye Vitamin 1 tablet EACH EYE DAILY 03/25/21 04/29/24 duloxetine 30 mg capsule,delayed 30 mg PO DAILY 07/09/23 04/29/24 release Centrum Silver Men 1 tablet PO DAILY 09/05/23 04/29/24 meloxicam 15 mg tablet 15 mg PO DAILY 09/05/23 04/29/24 Allergies Allergy/AdvReac Type Severity Reaction Status Date / Time No Known Allergies Allergy Verified 04/30/24 00:13 [facility] Past Medical History Medical History Allergic rhinitis Arthritis BPH (benign prostatic hyperplasia) Depression GERD (gastroesophageal reflux disease) History of BPH History of depression History of gastroesophageal reflux (GERD) History of seizures HLD (hyperlipidemia) Surgical History Surgical History History of hand surgery Finger surgery S/P cataract extraction and insertion of intraocular lens Bilateral Family History Family History Sibling Leukemia Other Diabetes mellitus Social History Social History Smoking status: Never smoker Alcohol intake: never Substance use: never Do You Feel Safe in your Home?: Yes Lack of Transportation: No Lack of Food: Never True Current Housing: I Have Housing Concerned About Future Housing: No Difficulty Paying Gas/Electric Bills: No Difficulty Paying for Meds: No Currently Unemployed: No Education: Master's Degree or Higher Difficulty w/ Childcare or Family Care: No Gender identity (if verbalized by the patient): Male Spiritual care concerns: No Exam Narrative: APPEARANCE: Well appearing, no pain, no distress, well-nourished. HEAD: normocephalic, atraumatic. EYES: PERRLA/EOMI, conjunctivae clear. NOSE: Normal no drainage EARS:TMS clear with good light reflex. THROAT: Pharynx clear, no exudate. NECK: Supple. No adenopathy, no masses. RESPIRATORY: Airway patent, respirations nonlabored. Clear to auscultation bilaterally, no rales, rhonchi, wheezing. CARDIOVASCULAR: Regular rate and rhythm without murmurs rubs or gallops. ABDOMINAL: Soft, nontender, nondistended, normal bowel sounds MUSCULOSKELETAL: Moves all extremities. Strength/ROM intact, No edema, No calf tenderness. NEURO: Alert. Cranial nerves II through XII intact. Good gait. Good coordination SKIN: Warm, dry. Normal Color Course Vital Signs Vital signs: Vital Signs Temperature 98.6 F 04/29/24 21:07 Pulse Rate 78 04/29/24 21:07 Respiratory Rate 18 04/29/24 21:07 Blood Pressure 159/74 H 04/29/24 21:07 Pulse Oximetry 95 04/29/24 21:07 Oxygen Delivery Room Air 04/29/24 21:07 Tem
--- NOTE | 2024-04-30 03:41 | ECG_ITS ---
Test Date: 2024-04-30 03:41:35 Measurements Intervals [place] Rate: 70 P: 32 [place]: 172 QRS: -58 QRSD: 108 T: 54 QT: 400 QTc: 434 Interpretive Statements SINUS RHYTHM INCOMPLETE RIGHT BUNDLE BRANCH BLOCK LEFT ANTERIOR FASCICULAR BLOCK VOLTAGE CRITERIA FOR LEFT VENTRICULAR HYPERTROPHY CANNOT R/O SEPTAL INFARCT, AGE INDETERMINATE BASELINE ARTIFACT- I, III, AVR, AVL ABNORMAL ECG Compared to ECG 04/30/2024 00:27:32 NO SIGNIFICANT CHANGE Electronically Signed On 05-01-2024 08:14:41 CDT by Paulo Gamez D.O.
[2024-04-30 04:00] LABS: Troponin I < 0.012 ng/mL (0.000-0.034)
== END 2024-04-30 05:00 | disposition home or self-care (01) ==
PROVIDERS: Emergency Provider Emergency Medicine; PCP Physician Assistant
DX: R10.13 Epigastric pain (principal); E78.5 Hyperlipidemia, unspecified; N40.0 Benign prostatic hyperplasia without lower urinary tract symptoms; K21.9 Gastro-esophageal reflux disease without esophagitis; M19.90 Unspecified osteoarthritis, unspecified site; F32.A Depression, unspecified; Z96.1 Presence of intraocular lens; Z98.42 Cataract extraction status, left eye; Z98.41 Cataract extraction status, right eye; Z79.82 Long term (current) use of aspirin; Z79.899 Other long term (current) drug therapy; I45.2 Bifascicular block; R94.31 Abnormal electrocardiogram [ECG] [EKG]
CPT/HCPCS: 36415; 71045; 71046; 80053; 83690; 84484; 85025; 85380; 85610; 85730; 93005; 99213; 99284; G0463

== ENCOUNTER 2024-07-03 17:16 | Observation (INO) | payer MEDICARE, SELFPAY ==
[2024-07-03] VITALS (7 sets, daily range): BP systolic 127–163; BP diastolic 74–96; PULSE 82–140; RESP 16–22; TEMP 36.4–36.7; O2SAT 94–98; BMI 27.4
--- NOTE | ~2024-07-03 | XR_ITS ---
XR chest 2V DATE: 07/03/2024 17:41 INDICATION: Irregular heart rate TECHNIQUE: AP and lateral views COMPARISON: 04/30/2024 portable AP chest FINDINGS: Normal heart size. There is mild aortic unfolding. No hilar or mediastinal enlargement. There is minimal discoid atelectasis or scarring in the left lower lung. No pulmonary infiltrate or consolidation, pulmonary vascular congestion or pleural effusion or pneumothorax. Bilateral glenohumeral osteoarthritis. Degenerative spurring of the thoracic spine. IMPRESSION: Minimal discoid atelectasis and/or scarring in the left lower lung Reviewed, dictated and finalized at location A. IAL EDUCATION INCLUSION TEACHER
--- NOTE | 2024-07-03 17:22 | ECG_ITS ---
Test Date: 2024-07-03 17:28:38 Measurements Intervals [place] Rate: 130 P: 0 GA: 0 QRS: -70 QRSD: 98 T: 90 QT: 274 QTc: 404 Interpretive Statements ATRIAL FLUTTER/TACHYCARDIA WITH RAPID VENTRICULAR RESPONSE WITH VENTRICULAR PREMATURE COMPLEX INCOMPLETE RIGHT BUNDLE BRANCH BLOCK LEFT ANTERIOR FASCICULAR BLOCK LEFT VENTRICULAR HYPERTROPHY AND ST-T CHANGE ABNORMAL ECG Compared to ECG 04/30/2024 03:41:35 Sinus rhythm no longer present Electronically Signed On 07-03-2024 22:21:03 [employer] by Paulo Gamez D.O.
--- NOTE | 2024-07-03 17:31 | ED.ARRPALP ---
HPI - Arrhythmia/Palpitations General Chief Complaint: Arrhythmia/Palpitations Stated Complaint: heart rate is high Time Seen by Provider: 07/03/24 17:30 Source: patient and family Mode of arrival: ambulatory Limitations: no limitations History of Present Illness HPI narrative: 89 years old white male came to the ED by private car from home with his complaining of sudden onset of increased heart rate while sitting watching TV for the last 6 hours. Associated with diaphoresis. He denies any fever, chills, nausea, vomiting, shortness of breath, chest pain, lightheadedness or having similar symptoms. History of hypertension, hyperlipidemia currently on baby aspirin once a day, patient does not smoke or drink or use drugs. Related Data Home Medications Medication Instructions Recorded Confirmed aspirin 81 mg chewable tablet 81 mg DAILY 07/13/19 04/29/24 fluticasone propionate 50 50 mcg intranasal DIRECTED PRN 07/13/19 04/29/24 mcg/actuation nasal Congestion spray,suspension omeprazole 20 mg capsule,delayed 20 mg PO DAILY 07/13/19 04/29/24 release atorvastatin 10 mg tablet 10 mg DAILY 07/17/19 04/29/24 dutasteride 0.5 mg capsule 0.5 mg PO DAILY 07/17/19 04/29/24 (Avodart) phenytoin sodium extended 100 mg 300 mg PO DAILY 07/17/19 04/29/24 capsule (Dilantin Extended) Eye Vitamin 1 tablet EACH EYE DAILY 03/25/21 04/29/24 duloxetine 30 mg capsule,delayed 30 mg PO DAILY 07/09/23 04/29/24 release Centrum Silver Men 1 tablet PO DAILY 09/05/23 04/29/24 meloxicam 15 mg tablet 15 mg PO DAILY 09/05/23 04/29/24 Allergies Allergy/AdvReac Type Severity Reaction Status Date / Time No Known Allergies Allergy Verified 07/03/24 17:47 Review of Systems Review of Systems: All systems reviewed & are unremarkable except as noted in HPI and below PMFSH Past Medical History Medical History Allergic rhinitis Arthritis BPH (benign prostatic hyperplasia) Depression GERD (gastroesophageal reflux disease) History of BPH History of depression History of gastroesophageal reflux (GERD) History of seizures HLD (hyperlipidemia) Surgical History Surgical History History of hand surgery Finger surgery S/P cataract extraction and insertion of intraocular lens Bilateral Family History Family History Sibling Leukemia Other Diabetes mellitus Social History Social History Smoking status: Never smoker Alcohol intake: never Substance use: never Do You Feel Safe in your Home?: Yes Lack of Transportation: No Lack of Food: Never True Current Housing: I Have Housing Concerned About Future Housing: No Difficulty Paying Gas/Electric Bills: No Difficulty Paying for Meds: No Currently Unemployed: No Education: Master's Degree or Higher Difficulty w/ Childcare or Family Care: No Gender identity (if verbalized by the patient): Male Spiritual care concerns: No Exam Narrative: General appearance: Well-developed, well-nourished Skin: Normal color Head: Normocephalic, nontraumatic Eyes: Clear conjunctiva ENT: Oropharynx normal, ears normal, nose normal Neck: Supple, nontender Chest and respiratory: Airway patent, no respiratory distress, no accessory muscle use Heart: Tachycardia, irregular irregularity Abdomen: Soft, nontender, no organomegaly, quiet bowel sounds Vascular: Normal peripheral pulses, normal capillary refill. Musculoskeletal: Normal range of motion, nontender back Neurologic: Alert and oriented ?3, PSYCHIATRIC SECURITY NURSE is normal as tested, no gross motor deficit Course Vital Signs Vital signs: Vital Signs Temperature 36.4 C 07/03/24 17:18 Pulse Rate 140 H 07/03/24 17:18 Respiratory Rate 16 07/03/24 17:18 Blood Pressure 163/87 H 07/03/24 17:18 Pulse Oximetry 98 07/03/24 17:18 Temperature 36.4 C 07/03/24 17:18 Pulse Rate 98 07/03/24 18:20 Respiratory Rate 22 H 07/03/24 18:20 Blood Pressure 143/76 H 07/03/24 18:20 Pulse Oximetry 95 07/03/24 18:20 MDM - Arrhythmia/Palpitations MDM Narrative Medical decision making narrative: Patient came to the ED with fast heartbeat started 6 hour prior to arrival Vital signs showing blood pressure 163/87, heart rate 140. Physical examination showing tachycardia, irregular irregularity otherwise insignificant Differential diagnosis cardiac arrhythmia, coronary artery disease, electrolyte imbalance, dehydration, congestive heart failure, hyperthyroidism Blood workup today includes CBC, CMP, lipase, troponin, TSH showed WBC of 10.8, sodium 132, BUN 26, creatinine 0.9, glucose 119, lipase 396, TSH 4.8 Chest x-ray showed no acute abnormalities Patient started on Cardizem 10 mg IV bolus then on 5 milligram/hour EKG on arrival showed atrial flutter, tachycardia 130 beats per minute, incomplete right bundle-branch block, nonspecific ST T-wave abnormalities, PVCs Patient heart rate improved down to 80 beats per minute is still a flutter Differential Diagnosis Differential diagnosis: Likely palpitations, artial fibrillation, artial flutter, ventricular premature beats and other (As above) Medical Records Attestation: I reviewed the patient's medical records. Lab Data Attestation: I reviewed the patient's lab results. 07/03/24 17:31 07/03/24 17:31 Labs: Lab Results 07/03/24 07/03/24 Range/Units 17:30 17:31 WBC 10.8 H (4.5-10.0) K/mm3 RBC 4.50 L (4.6-6.20) M/mm3 Hgb 15.0 (14.0-18.0) g/dL Hct 44.3 (42.0-52.0) % MCV 98.4 (80-100) fl MCH 33.3 (26-34) pg MCHC 33.9 (32-36) g/dl RDW 13.2 (11.5-14.5) % Plt Count 259 (150-375) k/mm3 MPV 9.6 (7.4-10.4) fl Immature Gran % (Auto) 0.8 H (0-0.5) % Neut % (Auto) 64.8 (45.5-73.1) % Lymph % (Auto) 22.6 (18.3-44.2) % Edmunds % (Auto) 10.1 H (2.6-8.5) % Eos % (Auto) 1.5 (0-4.4) % Baso % (Auto) 0.2 (0.2-1.2) % Lymph # (Auto) 2.43 (0.9-3.2) K/mm3 Edmunds # (Auto) 1.1 H (0.1-0.6) K/mm3 Eos # (Auto) 0.2 (0-0.3) K/mm3 Baso # (Auto) 0.0 (0.0-0.1) K/mm3 Abs Immat Gran (auto) 0.09 H (0.00-0.031) K/mm3 Absolute Neuts (auto) 7.0 H (1.3-6.7) K/mm3 Absolute Nucleated RBC 0.000 (0.0-0.012) K/mm3 Nucleated RBC % 0.0 (0.0-0.2) % PT 12.2 (11.1-14.7) Seconds INR 0.9 APTT 29.5 (22.3-36.8) Seconds Sodium 132 L (137-145) mmol/L Potassium 4.2 (3.4-5.0) mmol/L Chloride 101 (98-107) mmol/L Carbon Dioxide 26 (22-30) mmol/L Anion Gap 5 (4-12) mmol/L BUN 26 H D (9-20) mg/dL Creatinine 0.90 (0.7-1.3) mg/dL Estim Creat Clear Calc 49 ml/min Estimated GFR > 60 (59 - ) Glucose 119 H (65-110) mg/dL Calcium 9.0 (8.4-10.2) mg/dL Total Bilirubin 0.4 (0.2-1.3) mg/dL AST 29 (17-59) U/L ALT 34 (6-50) U/L Alkaline Phosphatase 90 (38-126) U/L Troponin I 0.026 (0.000-0.034) ng/mL Total Protein 7.0 (6.3-8.2) g/dL Albumin 4.3 (3.5-5.1) g/dL Lipase 396 H (23-300) U/L TSH 4.870 H (0.465-4.680) uIU/mL Free Phenytoin Pending Imaging Data Radiologist's impression: Impressions Chest X-Ray 07/03/24 17:48 IMPRESSION: Minimal discoid atelectasis and/or scarring in the left lower lung ECG Data EKG #1: Attestation: I personally reviewed and interpreted this ECG as follows: ECG completion date: 07/03/24 Prior ECG tracings: available for review Interpretation: Atrial flutter, tachycardia 130 beats per minute, incomplete right bundle-branch block, ST T-wave abnormality, occasional PVCs, EKG #2: Attestation: I personally reviewed and interpreted this ECG as follows: ECG completion date: 07/03/24 Interpretation: Repeated EKG after Cardizem bolus and drip showed patient still in a flutter with heart rate 83 per minute, incomplete right bundle-branch block, left anterior fascicular block, nonspecific ST T-wave abnormality, new new changes compared to the earlier 1 today except heart rate Critical Care Time Critical Care Time Critical Care Time: Yes Total Critical Care Time: 30 Discharge Plan Discharge Clinical Impression: Atrial flutter Patient Disposition: Still a Patient Condition: Stable Prescriptions: No Action atorvastatin 10 mg tablet 10 mg DAILY dutasteride [Avodart] 0.5 mg capsule 0.5 mg PO DAILY phenytoin sodium extended [Dilantin Extended] 100 mg capsule 300 mg PO DAILY doxycycline monohydrate 100 mg tablet 100 mg PO BID Qty: 14 0RF Eye Vitamin 1 tablet EACH EYE DAILY duloxetine 30 mg capsule,delayed release(DR/EC) 30 mg PO DAILY aspirin 81 mg Tablet,Chewable 81 mg DAILY fluticasone propionate 50 mcg/actuation spray,suspension 50 mcg INTRANASAL DIRECTED PRN (Reason: Congestion) omeprazole 20 mg Capsule,Delayed Release(Dr/Ec) 20 mg PO DAILY meloxicam 15 mg Tablet 15 mg PO DAILY Centrum Silver Men 1 tablet PO DAILY lidocaine [Lidoderm] 5 % Adhesive Patch,Medicated 1 patch transdermal DAILY Qty: 7 0RF sodium chloride 1,000 mg tablet,soluble 1,000 mg PO DAILY Qty: 7 0RF Follow-up/Referrals: Thao,LYNDA Carvalho [Primary Care Provider] -
[2024-07-03 17:38] LABS: Basophils Percent Auto 0.2 % (0.2-1.2); Eosinophils Absolute Auto 0.2 K/mm3 (0-0.3); Eosinophils Percent Auto 1.5 % (0-4.4); Hematocrit 44.3 % (42.0-52.0); Immature Granulocyte Absolute 0.09 K/mm3 (0.00-0.031); Immature Granulocyte Percent A 0.8 % (0-0.5); Lymphocytes Absolute Auto 2.43 K/mm3 (0.9-3.2); Lymphocytes Percent Auto 22.6 % (18.3-44.2); Mean Corpuscular HGB Conc 33.9 g/dl (32-36); Mean Corpuscular Hemoglobin 33.3 pg (26-34); Mean Corpuscular Volume 98.4 fl (80-100); Mean Platelet Volume 9.6 fl (7.4-10.4); Monocytes Absolute Auto 1.1 K/mm3 (0.1-0.6); Monocytes Percent Auto 10.1 % (2.6-8.5); Neutrophils Percent Auto 64.8 % (45.5-73.1); Platelet Count Result 259 k/mm3 (150-375); Red Cell Distribution Width 13.2 % (11.5-14.5); White Blood Count 10.8 K/mm3 (4.5-10.0)
[2024-07-03] MEDS: dilTIAZem 100 MG/100 ML 100 MG/100 ML BAG IV CONT (17:48)
[2024-07-03 17:49] LABS: INR 0.9; Prothrombin Time 12.2 Seconds (11.1-14.7)
[2024-07-03] MEDS: dilTIAZem HCl INJ 25 MG/5 ML VIAL 10 MG IV PUSH (17:49)
[2024-07-03 17:50] LABS: Partial Thromboplastin Time 29.5 Seconds (22.3-36.8)
[2024-07-03] MEDS: ENOXAPARIN 100 MG/ML SYRINGE 90 MG SUB-Q (17:52)
[2024-07-03 17:53] LABS: Albumin Level 4.3 g/dL (3.5-5.1); Alkaline Phosphatase 90 U/L (38-126); Aspartate Amino Transferase 29 U/L (17-59); Bilirubin,Total 0.4 mg/dL (0.2-1.3); Blood Urea Nitrogen 26 mg/dL (9-20); Carbon Dioxide 26 mmol/L (22-30); Estimated CRCL calculation 49 ml/min; Estimated Glomerular Filt Rate > 60; Glucose 119 mg/dL (65-110); Lipase 396 U/L (23-300)
[2024-07-03 17:59] LABS: Troponin I 0.026 ng/mL (0.000-0.034)
[2024-07-03 18:01] LABS: Alanine Aminotransferase 34 U/L (6-50); Anion Gap 5 mmol/L (4-12); Chloride 101 mmol/L (98-107); Potassium 4.2 mmol/L (3.4-5.0); Sodium 132 mmol/L (137-145)
--- NOTE | 2024-07-03 18:41 | ECG_ITS ---
Test Date: 2024-07-03 18:45:33 Measurements Intervals [place] Rate: 83 P: 198 [place]: 231 QRS: -63 QRSD: 99 T: 47 QT: 380 QTc: 448 Interpretive Statements ATRIAL FLUTTER/TACHYCARDIA WITH NORMAL VENTRICULAR RESPONSE INCOMPLETE RIGHT BUNDLE BRANCH BLOCK LEFT ANTERIOR FASCICULAR BLOCK VOLTAGE CRITERIA FOR LVH ANTERIOR INFARCT, AGE INDETERMINATE BASELINE ARTIFACT- I, II, III, AVR, AVL, AVF, V1-V6 ABNORMAL ECG Compared to ECG 07/03/2024 17:28:38 HEART RATE HAS INCREASED Electronically Signed On 07-03-2024 22:27:19 [employer]URNER by Paulo Gamez D.O.
--- NOTE | 2024-07-03 19:03 | PC.NURSE ---
per Dr Chavarria, keep patient on current rate of cardizem
--- NOTE | 2024-07-03 19:10 | PM.IMHP ---
H&P: HPI History of Present Illness Date/Time: 07/03/24 19:10 Chief Complaint: Fatigue, fast heart rate. Narrative: This is a pleasant 89-year-old male with history of seizure disorder, hypertension, hyperlipidemia, gastroesophageal reflux disease, and benign prostatic hyperplasia who presented to the emergency department via private vehicle from home for evaluation of fatigue and a fast heart rate. The patient provides the following history. He woke up feeling sweaty and fatigued this morning despite sleeping pretty well. Throughout the day he add little to no energy and got tired quickly with everyday activities such as walking up a few steps. He decided to check his blood pressure which was reportedly at a reasonable number however he noticed that his heart rate was up in the 120s and seemed to be erratic. He denies sensations of racing heart or palpitations. He also denies syncope, near syncope, chest discomfort, pleuritic pain, orthopnea, paroxysmal nocturnal dyspnea, edema, calf pain, nausea, vomiting, diarrhea, and dysuria. No known history of cardiac arrhythmia, coronary artery disease, or thyroid disease. He denies significant alcohol and caffeine use. No history of sleep apnea however reports that he snores loudly. In the ED: He was afebrile on arrival with stable blood pressures. He was in rapid atrial flutter with rates in the 130s to 140s. SpO2 has been in the upper 90s on room air. Labs were significant for WBC count of 10.8, sodium 132, BUN 26, creatinine 0.90, troponin 0.026, TSH 4.870, lipase 396. Chest x-ray showed minimal discoid atelectasis and/or scarring in the left lower lobe. He was started on a Cardizem drip and he was given a dose of enoxaparin, 1 mg/kg. He is being admitted in this setting for further treatment and evaluation as well as a cardiology consult. Review of Systems Review of Systems: 12 systems were reviewed and are negative except for as per HPI. [facility] Past Medical History Medical History (Updated 07/03/24 @ 21:10 by Melissa Mata PA-C) Allergic rhinitis Arthritis Benign prostatic hyperplasia Depression Gastroesophageal reflux disease Hyperlipidemia Hypertension Seizure disorder Surgical History Surgical History (Updated 07/03/24 @ 20:53 by Melissa Mata PA-C) History of cataract extraction with lens replacement History of hand surgery Finger surgery Family History Family History Sibling Leukemia Other Diabetes mellitus Social History Social History (Updated 07/03/24 @ 20:54 by Melissa Mata PA-C) Social History: Surrogate medical decision maker: Swathi Smith, spouse. Code status: Full code. Smoking status: Never smoker Alcohol intake: never Substance use: never Do You Feel Safe in your Home?: Yes Lack of Transportation: No Lack of Food: Never True Current Housing: I Have Housing Concerned About Future Housing: No Difficulty Paying Gas/Electric Bills: No Difficulty Paying for Meds: No Currently Unemployed: No Education: Master's Degree or Higher Difficulty w/ Childcare or Family Care: No Additional living arrangements comments: Lives with spouse of 65 years in [place]. 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 Spiritual care concerns: No Meds Home Medications and Allergies Home Medications Medication Instructions Recorded Confirmed Type aspirin 81 mg chewable tablet 81 mg DAILY 07/13/19 04/29/24 History fluticasone propionate 50 50 mcg intranasal DIRECTED PRN 07/13/19 04/29/24 History mcg/actuation nasal Congestion spray,suspension omeprazole 20 mg capsule,delayed 20 mg PO DAILY 07/13/19 04/29/24 History release atorvastatin 10 mg tablet 10 mg DAILY 07/17/19 04/29/24 History dutasteride 0.5 mg capsule 0.5 mg PO DAILY 07/17/19 04/29/24 History (Avodart) phenytoin sodium extended 100 mg 300 mg PO DAILY 07/17/19 04/29/24 History capsule (Dilantin Extended) Eye Vitamin 1 tablet EACH EYE DAILY 03/25/21 04/29/24 History duloxetine 30 mg capsule,delayed 30 mg PO DAILY 07/09/23 04/29/24 History release Centrum Silver Men 1 tablet PO DAILY 09/05/23 04/29/24 History meloxicam 15 mg tablet 15 mg PO DAILY 09/05/23 04/29/24 History lidocaine 5 % topical patch 1 patch transdermal DAILY #7 ea 09/07/23 04/29/24 Rx (Lidoderm) sodium chloride 1,000 mg soluble 1,000 mg PO DAILY #7 tabs 09/07/23 04/29/24 Rx tablet doxycycline monohydrate 100 mg 100 mg PO BID #14 tabs 04/29/24 Rx tablet Allergies Allergy/AdvReac Type Severity Reaction Status Date / Time No Known Allergies Allergy Verified 07/03/24 17:47 Vital Signs Vital Signs - 24 hr 07/03/24 17:18 07/03/24 17:48 07/03/24 18:20 Temperature 97.6 F Pulse Rate 140 H 133 H 98 Respiratory Rate 16 22 H Blood Pressure 163/87 H 145/96 H 143/76 H Pulse Oximetry 98 95 Exam Narrative: General: Mildly ill-appearing gentleman sitting up in bed in no distress. Weight: 86 kg. BMI: 28.0. HEENT: PERRL, EOMI. Sclera anicteric. Tacky mucous membranes. Neck: Supple. No JVD. Respiratory: Respirations are nonlabored and lungs are clear to auscultation bilaterally. Cardiovascular: Tachycardic with normal S1-S2. No significant murmur. Monitor shows atrial flutter. Gastrointestinal: Abdomen is soft, nontender, and nondistended with positive bowel sounds. Skin: Warm and dry. Extremities: No cyanosis, clubbing, or edema. Radial and pedal pulses intact. Neurological: Alert. Cranial nerves 2-12 are grossly intact. No gross focal deficits to casual conversation. Psychiatric: Pleasant and cooperative with appropriate mood and flat affect. H&P: Results Labs Labs: Short CBC 07/03/24 Range/Units 17:31 WBC 10.8 H (4.5-10.0) K/mm3 Hgb 15.0 (14.0-18.0) g/dL Hct 44.3 (42.0-52.0) % Plt Count 259 (150-375) k/mm3 [facility] 07/03/24 17:31 Sodium 132 L Potassium 4.2 Chloride 101 Carbon Dioxide 26 BUN 26 H D Creatinine 0.90 Glucose 119 H Calcium 9.0 Cardiac Enzymes 07/03/24 Range/Units 17:31 Troponin I 0.026 (0.000-0.034) ng/mL Liver Function 07/03/24 Range/Units 17:31 Total Bilirubin 0.4 (0.2-1.3) mg/dL AST 29 (17-59) U/L ALT 34 (6-50) U/L Alkaline Phosphatase 90 (38-126) U/L Albumin 4.3 (3.5-5.1) g/dL Imaging Chest X-Ray 07/03/24 17:48 IMPRESSION: 1. Minimal discoid atelectasis and/or scarring in the left lower lung. Assessment and Plan Assessment and plan (1) Atrial flutter with rapid ventricular response: Code(s): I48.92 - Unspecified atrial flutter Status: Acute (2) Hyponatremia: Code(s): E87.1 - Hypo-osmolality and hyponatremia Status: Acute (3) Hypertension: Code(s): I10 - Essential (primary) hypertension Status: Acute (4) Hyperlipidemia: Code(s): E78.5 - Hyperlipidemia, unspecified Status: Acute (5) Benign prostatic hyperplasia: Code(s): N40.0 - Benign prostatic hyperplasia without lower urinary tract symptoms Status: Acute (6) Seizure disorder: Code(s): G40.909 - Epilepsy, unspecified, not intractable, without status epilepticus Status: Acute Plan The patient presented to the emergency department for evaluation of fatigue an elevated heart rate as detailed in HPI. Labs, imaging, EKG, and all reports were personally reviewed. He was in rapid atrial flutter on arrival which is a new diagnosis for him and given his symptomatology it would seem that he has been in this rhythm since he got up this morning. He is currently on a diltiazem drip with improvement in rate. Continue enoxaparin 1 milligram/kilogram b.i.d. as [id number] is 3. Echocardiogram, TSH, and ApneaLink are pending. Cardiology has been consulted for their input. Sodium is a little low and his BUN is up a bit, suggesting mild dehydration. Infuse 1 L normal saline overnight. Blood pressures were reviewed and they are stable. Continue statin; LFTs are within normal limits. P.r.n. bladder scan to rule out retention. Check phenytoin level. His home medications will be reviewed and resumed as appropriate. Findings and treatment plan were discussed with the patient. Questions were solicited and answered to satisfaction. The patient's medical management will be taken over by the hospitalist team in a.m. Quality VTE Prophylaxis VTE prophylaxis: pharmacologic ordered The patient has been admitted under observation status. Hospitalist [facility] Advance Care Plan I have confirmed that the patient's Advanced Care Plan is present, code status is documented, or surrogate decision maker is listed in patient medical record.: Yes Medication Reconciliation I have utilized all available resources to obtain, update and review the patients current medications (includes all prescriptions, OTC, herbals, cannabis, and nutritional supplements).: Yes
--- NOTE | 2024-07-03 20:42 | ECG_ITS ---
Test Date: 2024-07-03 20:47:02 Measurements Intervals [place] Rate: 83 P: 0 [place]: 0 QRS: -61 QRSD: 82 T: 33 QT: 365 QTc: 429 Interpretive Statements ATRIAL FLUTTER/TACHYCARDIA POSSIBLE RIGHT VENTRICULAR CONDUCTION DELAY VOLTAGE CRITERIA FOR LVH ANTERIOR INFARCT, AGE INDETERMINATE BASELINE ARTIFACT- I, II, III, AVR, AVL, AVF, V1-V6 ABNORMAL ECG Compared to ECG 07/03/2024 18:45:33 NO SIGNIFICANT CHANGE Electronically Signed On 07-03-2024 22:19:45 WEB DEVELOPMENT INSTRUCTOR by Paulo Gamez D.O.
[2024-07-03 21:11] LABS: Troponin I 0.032 ng/mL (0.000-0.034)
--- NOTE | 2024-07-03 21:46 | ADMGEN ---
This patient, Adaldi Smith, was admitted to IMU Room 202-. Patient/family oriented to hospital policies and general routines including ID bracelet, bed and alarms, visiting hours, pain management, procedures, bathroom and other care routines, personal items, smoking policy, room service/diet, and visiting hours. Information on how to activate the Rapid Response Team has been discussed. Patient/Family are encouraged to report perceived risks to care and to ask questions if they do not understand what they are told or what they should do.
--- NOTE | 2024-07-03 21:47 | ECG_ITS ---
Test Date: 2024-07-03 21:47:39 Measurements Intervals [place] Rate: 82 P: 0 [place]: 0 QRS: -61 QRSD: 92 T: 30 QT: 392 QTc: 459 Interpretive Statements ATRIAL FLUTTER/TACHYCARDIA WITH NORMAL VENTRICULAR RESPONSE LEFT ANTERIOR FASCICULAR BLOCK VOLTAGE CRITERIA FOR LVH CANNOT R/O SEPTAL INFARCT, AGE INDETERMINATE BASELINE ARTIFACT- II, III, AVR, AVL, AVF ABNORMAL ECG Compared to ECG 07/03/2024 20:47:02 NO SIGNIFICANT CHANGE Electronically Signed On 07-03-2024 22:29:11 VACUUM APPLICATOR OPERATOR by Paulo Gamez D.O.
[2024-07-03] MEDS: SODIUM CHLORIDE 0.9% IV 1,000 ML 100 ML IV CONT (22:00)
[2024-07-03 22:40] LABS: Magnesium 2.1 mg/dL (1.6-2.3)
[2024-07-03 22:50] LABS: NT Pro B Type Natriuretic Pept 3630 pg/mL (19.9-100)
[2024-07-03 23:58] LABS: Troponin I 0.026 ng/mL (0.000-0.034)
[2024-07-04] VITALS (23 sets, daily range): BP systolic 118–147; BP diastolic 65–94; PULSE 79–119; RESP 14–20; TEMP 36.4–36.8; O2SAT 94–100
[2024-07-04 00:03] LABS: Free T4 Free Thyroxine 1.01 ng/mL (0.78-2.19)
[2024-07-04] MEDS: ACETAMINOPHEN 325 MG TABLET 650 MG PO (03:27)
[2024-07-04 05:37] LABS: Hematocrit 38.9 % (42.0-52.0); Hemoglobin 13.9 g/dL (14.0-18.0); Mean Corpuscular HGB Conc 35.7 g/dl (32-36); Mean Corpuscular Hemoglobin 34.5 pg (26-34); Mean Corpuscular Volume 96.5 fl (80-100); Mean Platelet Volume 11.9 fl (7.4-10.4); Platelet Count Result 143 k/mm3 (150-375); Red Blood Count 4.03 M/mm3 (4.6-6.20); Red Cell Distribution Width 13.2 % (11.5-14.5); White Blood Count 8.5 K/mm3 (4.5-10.0)
[2024-07-04 05:49] LABS: Anion Gap 4 mmol/L (4-12); Blood Urea Nitrogen 20 mg/dL (9-20); Calcium 8.1 mg/dL (8.4-10.2); Carbon Dioxide 23 mmol/L (22-30); Chloride 104 mmol/L (98-107); Estimated CRCL calculation 60 ml/min; Estimated Glomerular Filt Rate > 60; Glucose 101 mg/dL (65-110); Sodium 131 mmol/L (137-145)
[2024-07-04] MEDS: ENOXAPARIN 100 MG/ML SYRINGE 86 MG SUB-Q ×2 (08:58→21:36)
--- NOTE | 2024-07-04 12:18 | P.PNIM_ITS ---
Progress Note: A&P Assessment and Plan (1) Atrial flutter with rapid ventricular response: Code(s): I48.92 - Unspecified atrial flutter Status: Acute Assessment and Plan: Patient presents with fatigue and elevated heart rate. Unclear on onset. EKG shows atrial flutter with RVR (130), incomplete right BBB, LAFB and LVH CXR showing minimal discoid atelectasis and/or scarring left lower lobe Troponin negative x3. BNP 3630. TSH 4.87 with normal free T4. Etiology unclear on why he developed AFlutter. [id number] is 3 (age, HTN) Patient was given diltiazem IV in the ED. Was started on Lovenox therapeutic dosing. He was started on diltiazem drip. He remains on Lovenox. Cardiology consulted. Heart rate better controlled but still with intermittent RVR. Echo ordered. (2) Hyponatremia: Code(s): E87.1 - Hypo-osmolality and hyponatremia Status: Acute Assessment and Plan: Patient with chronic hyponatremia most likely related to his medications. Sodium 132 on admission which is actually better than recent values. Repeat sodium about the same. Will continue to follow periodically. (3) Seizure disorder: Code(s): G40.909 - Epilepsy, unspecified, not intractable, without status epilepticus Status: Acute Assessment and Plan: Patient with seizure disorder. Resume Dilantin. Level ordered (4) Hypertension: Code(s): I10 - Essential (primary) hypertension Status: Acute Assessment and Plan: Patient's blood pressure was reviewed on 07/04 Blood pressure remains well controlled. Will continue to follow (5) Hyperlipidemia: Code(s): E78.5 - Hyperlipidemia, unspecified Status: Acute Assessment and Plan: LFTs within normal limits. Resume Lipitor. (6) Benign prostatic hyperplasia: Code(s): N40.0 - Benign prostatic hyperplasia without lower urinary tract symptoms Status: Acute Assessment and Plan: Stable. Resume home medications. Plan Thrombocytopenia - Plt count 143K. Will monitor for now. DVT prophylaxis -Lovenox Code status -full Subjective Date/time seen: 07/04/24 12:18 Interval history: 89yo male with seizure disorder, HTT, HLD, GERD and BPH who presented to the ED via private vehicle from home for evaluation of fatigue and a fast heart rate. No history of atrial fibrillation. Does not drink alcohol. Drinks 1 cup of caffeine a day. Has nocturia but this is chronic related to his BPH. He has noted that over the past month that he has been more groggy and weak feeling. No increased shortness of breath or chest pain. He has hypertension but denies history of CVA, diabetes, CHF or PA D. Exam Narrative: AF 97.7 118/65 92 14 95% ra Gen - NARD Chest - CTA bilaterally, nml RR CV - irregularly irregular. Tele showing atrial fibrillation with intermittent RVR Abd - Soft, NT/ND, Positive BS Ext - No pedal edema. Negative Homans Psych - Nml mood and affect Skin - Warm and dry Objective Data Vital Signs Vital Signs: Vital Signs - 24 hr 07/03/24 17:18 07/03/24 17:48 07/03/24 18:20 Temperature 97.6 F Pulse Rate 140 H 133 H 98 Respiratory Rate 16 22 H Blood Pressure 163/87 H 145/96 H 143/76 H Pulse Oximetry 98 95 Oxygen Delivery 07/03/24 21:12 07/03/24 21:38 07/04/24 00:00 Temperature 98.0 F 98.2 F Pulse Rate 83 82 80 Respiratory Rate 19 18 18 Blood Pressure 127/83 135/85 130/82 Pulse Oximetry 94 98 96 Oxygen Delivery 07/03/24 22:00 07/04/24 00:00 07/04/24 00:00 Temperature Pulse Rate 85 85 85 Respiratory Rate 18 Blood Pressure 129/74 130/82 Pulse Oximetry 95 Oxygen Delivery Room Air 07/03/24 22:00 07/03/24 22:00 07/03/24 21:37 Temperature 98.1 F Pulse Rate 85 85 87 Respiratory Rate 18 18 Blood Pressure 129/74 Pulse Oximetry 98 95 Oxygen Delivery Room Air 07/04/24 00:00 07/04/24 01:58 07/04/24 02:00 Temperature Pulse Rate 83 101 H 86 Respiratory Rate Blood Pressure 120/83 Pulse Oximetry Oxygen Delivery 07/04/24 02:00 07/04/24 03:30 07/04/24 04:00 Temperature Pulse Rate 86 82 Respiratory Rate Blood Pressure 120/83 Pulse Oximetry Oxygen Delivery Room Air 07/04/24 04:00 07/04/24 04:00 07/04/24 06:00 Temperature 98.0 F Pulse Rate 82 82 82 Respiratory Rate 18 Blood Pressure 131/94 H 131/94 H Pulse Oximetry 95 Oxygen Delivery 07/04/24 06:00 07/04/24 06:00 07/04/24 07:57 Temperature 98.1 F Pulse Rate 84 84 100 Respiratory Rate 14 Blood Pressure 140/81 140/81 122/74 Pulse Oximetry 96 Oxygen Delivery 07/04/24 08:00 07/04/24 10:00 07/04/24 08:00 Temperature 98.0 F Pulse Rate 110 H 119 H Respiratory Rate 14 Blood Pressure 131/67 Pulse Oximetry 100 Oxygen Delivery Room Air 07/04/24 11:57 07/04/24 11:58 Temperature 97.7 F Pulse Rate 92 Respiratory Rate 14 Blood Pressure 118/65 Pulse Oximetry 95 95 Oxygen Delivery Room Air Intake/Output Intake/Output: Intake & Output 07/01/24 07/02/24 07/03/24 07/04/24 23:59 23:59 23:59 23:59 Intake Total 21 830 Output Total 120 Balance 21 710 Meds/Results Medications: Active Medications Generic Name Dose Route Start Last Admin Trade Name Freq PRN Reason Stop Dose Admin Acetaminophen 650 mg 07/03/24 20:03 07/04/24 03:27 Acetaminophen 325 Mg Tablet PO 325 mg Q4H PRN Administration Mild Pain (1-3) or Fever Enoxaparin Sodium 86 mg 07/04/24 09:00 07/04/24 08:58 Enoxaparin 100 Mg/Ml Syringe SUB-Q 86 mg Q12HR SARA Administration Diltiazem HCl 100 mg in 100 mls @ 5 mls/hr 07/03/24 17:31 07/04/24 06:00 Cardizem 100 Mg/100 Ml IV CONT 07/04/24 13:30 5 mg/hr .Q20H STA 5 mls/hr Titration Protocol 5 MG/HR Perflutren Lipid Microsphere 0 ml 07/03/24 21:12 Perflutren Lipid Microspheres 1.5 Ml Vial Diluted To 10 Ml Total Volume IV PUSH 07/06/24 21:12 ONCE PRN adequate visualization Protocol Radiology Results: ITS Impressions Chest X-Ray 07/03/24 17:48 IMPRESSION: Minimal discoid atelectasis and/or scarring in the left lower lung Labs Labs: Laboratory Results - last 24 hr 07/03/24 07/03/24 07/03/24 17:30 17:31 20:34 WBC 10.8 H RBC 4.50 L Hgb 15.0 Hct 44.3 MCV 98.4 MCH 33.3 MCHC 33.9 RDW 13.2 Plt Count 259 MPV 9.6 Immature Gran % (Auto) 0.8 H Neut % (Auto) 64.8 Lymph % (Auto) 22.6 [place] % (Auto) 10.1 H Eos % (Auto) 1.5 Baso % (Auto) 0.2 Lymph # (Auto) 2.43 [place] # (Auto) 1.1 H Eos # (Auto) 0.2 Baso # (Auto) 0.0 Abs Immat Gran (auto) 0.09 H Absolute Neuts (auto) 7.0 H Absolute Nucleated RBC 0.000 Nucleated RBC % 0.0 PT 12.2 INR 0.9 APTT 29.5 Sodium 132 L Potassium 4.2 Chloride 101 Carbon Dioxide 26 Anion Gap 5 BUN 26 H D Creatinine 0.90 Estim Creat Clear Calc 49 Estimated GFR > 60 Glucose 119 H Calcium 9.0 Magnesium 2.1 Total Bilirubin 0.4 AST 29 ALT 34 Alkaline Phosphatase 90 Troponin I 0.026 0.032 D NT-Pro-B Natriuret Pep 3630 H Total Protein 7.0 Albumin 4.3 Lipase 396 H TSH 4.870 H Free T4 07/03/24 07/04/24 23:24 04:17 WBC 8.5 RBC 4.03 L Hgb 13.9 L Hct 38.9 L MCV 96.5 MCH 34.5 H MCHC 35.7 RDW 13.2 Plt Count 143 L MPV 11.9 H Immature Gran % (Auto) Neut % (Auto) Lymph % (Auto) [place] % (Auto) Eos % (Auto) Baso % (Auto) Lymph # (Auto) [place] # (Auto) Eos # (Auto) Baso # (Auto) Abs Immat Gran (auto) Absolute Neuts (auto) Absolute Nucleated RBC Nucleated RBC % PT INR APTT Sodium 131 L Potassium 4.0 Chloride 104 Carbon Dioxide 23 Anion Gap 4 BUN 20 Creatinine 0.70 Estim Creat Clear Calc 60 Estimated GFR > 60 Glucose 101 Calcium 8.1 L Magnesium Total Bilirubin AST ALT Alkaline Phosphatase Troponin I 0.026 NT-Pro-B Natriuret Pep Total Protein Albumin Lipase TSH Free T4 1.01
--- NOTE | 2024-07-04 12:47 | PM.CNCAR ---
Assessment and Plan Assessment and plan (1) Atrial flutter with rapid ventricular response: Code(s): I48.92 - Unspecified atrial flutter Status: Acute (2) Hypertension: Code(s): I10 - Essential (primary) hypertension Status: Acute (3) Hyperlipidemia: Code(s): E78.5 - Hyperlipidemia, unspecified Status: Acute Plan 1. Seizure disorder, on phenytoin 2. HTN 3. Hyperlipidemia 4. Atrial Flutter, CHADSVASC 3 - His rate is better controlled - He is on diltiazem which has significant interaction with phenytoin - Will start him on metoprolol as well, Will switch to oral diltiazem tomorrow - Will need to be on anticoagulation. Will need to be switched to warfarin as DOACs have significant interaction with phenytoin History of Present Illness History of Present Illness Consult date/time: 07/04/24 12:47 Reason For Visit: Atrial Flutter With RVR, New Onset Narrative: This is a pleasant 89-year-old male with history of seizure disorder on phenytoin, hypertension, hyperlipidemia, gastroesophageal reflux disease, and benign prostatic hyperplasia who wad admitted with A flutter with RVR. Currently on diltiazem infusion and Lovenox Rate better controlled, occasional episodes of RVR now No prior CAD, CVA No recent bleeding from anywhere Review of Systems Review of Systems: 12 systems were reviewed and are negative except for as per HPI. All systems reviewed & are unremarkable except as noted in HPI and below [facility] Past Medical History Medical History (Updated 07/03/24 @ 21:10 by Melissa Mata PA-C) Allergic rhinitis Arthritis Benign prostatic hyperplasia Depression Gastroesophageal reflux disease Hyperlipidemia Hypertension Seizure disorder Surgical History Surgical History (Updated 07/03/24 @ 20:53 by Melissa Mata PA-C) History of cataract extraction with lens replacement History of hand surgery Finger surgery Family History Family History (Updated 07/03/24 @ 21:54 by Eloisa Negrete RN) Sibling Leukemia Mother Tuberculosis Other Diabetes mellitus Social History Social History (Updated 07/03/24 @ 20:54 by Melissa Mata PA-C) Social History: Surrogate medical decision maker: Swathi Cabreras, spouse. Code status: Full code. Smoking status: Never smoker Alcohol intake: never Substance use: never Do You Feel Safe in your Home?: Yes Lack of Transportation: No Lack of Food: Never True Current Housing: I Have Housing Concerned About Future Housing: No Difficulty Paying Gas/Electric Bills: No Difficulty Paying for Meds: No Currently Unemployed: No Education: Master's Degree or Higher Difficulty w/ Childcare or Family Care: No Additional living arrangements comments: Lives with spouse of 65 years in [place]. 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 Spiritual care concerns: No Meds Home Medications and Allergies Home Medications Medication Instructions Recorded Confirmed Type aspirin 81 mg chewable tablet 81 mg DAILY 07/13/19 07/03/24 History fluticasone propionate 50 50 mcg intranasal DIRECTED PRN 07/13/19 07/03/24 History mcg/actuation nasal Congestion spray,suspension omeprazole 20 mg capsule,delayed 20 mg PO DAILY 07/13/19 07/03/24 History release atorvastatin 10 mg tablet 10 mg DAILY 07/17/19 07/03/24 History dutasteride 0.5 mg capsule 0.5 mg PO DAILY 07/17/19 07/03/24 History (Avodart) phenytoin sodium extended 100 mg 100 mg PO TID 07/17/19 07/03/24 History capsule (Dilantin Extended) Eye Vitamin 1 tablet EACH EYE DAILY 03/25/21 07/03/24 History duloxetine 30 mg capsule,delayed 30 mg PO DAILY 07/09/23 07/03/24 History release Centrum Silver Men 1 tablet PO DAILY 09/05/23 07/03/24 History meloxicam 15 mg tablet 15 mg PO DAILY 09/05/23 07/03/24 History lidocaine 5 % topical patch 1 patch transdermal DAILY #7 ea 09/07/23 07/03/24 Rx (Lidoderm) Allergies Allergy/AdvReac Type Severity Reaction Status Date / Time No Known Allergies Allergy Verified 07/03/24 17:47 Vital Signs Vital Signs - 24 hr 07/03/24 17:18 07/03/24 17:48 07/03/24 18:20 Temperature 36.4 C Pulse Rate 140 H 133 H 98 Respiratory Rate 16 22 H Blood Pressure 163/87 H 145/96 H 143/76 H Pulse Oximetry 98 95 Oxygen Delivery 07/03/24 21:12 07/03/24 21:38 07/04/24 00:00 Temperature 36.7 C 36.8 C Pulse Rate 83 82 80 Respiratory Rate 19 18 18 Blood Pressure 127/83 135/85 130/82 Pulse Oximetry 94 98 96 Oxygen Delivery 07/03/24 22:00 07/04/24 00:00 07/04/24 00:00 Temperature Pulse Rate 85 85 85 Respiratory Rate 18 Blood Pressure 129/74 130/82 Pulse Oximetry 95 Oxygen Delivery Room Air 07/03/24 22:00 07/03/24 22:00 07/03/24 21:37 Temperature 36.7 C Pulse Rate 85 85 87 Respiratory Rate 18 18 Blood Pressure 129/74 Pulse Oximetry 98 95 Oxygen Delivery Room Air 07/04/24 00:00 07/04/24 01:58 07/04/24 02:00 Temperature Pulse Rate 83 101 H 86 Respiratory Rate Blood Pressure 120/83 Pulse Oximetry Oxygen Delivery 07/04/24 02:00 07/04/24 03:30 07/04/24 04:00 Temperature Pulse Rate 86 82 Respiratory Rate Blood Pressure 120/83 Pulse Oximetry Oxygen Delivery Room Air 07/04/24 04:00 07/04/24 04:00 07/04/24 06:00 Temperature 36.7 C Pulse Rate 82 82 82 Respiratory Rate 18 Blood Pressure 131/94 H 131/94 H Pulse Oximetry 95 Oxygen Delivery 07/04/24 06:00 07/04/24 06:00 07/04/24 07:57 Temperature 36.7 C Pulse Rate 84 84 100 Respiratory Rate 14 Blood Pressure 140/81 140/81 122/74 Pulse Oximetry 96 Oxygen Delivery 07/04/24 08:00 07/04/24 10:00 07/04/24 08:00 Temperature 36.7 C Pulse Rate 110 H 119 H Respiratory Rate 14 Blood Pressure 131/67 Pulse Oximetry 100 Oxygen Delivery Room Air 07/04/24 11:57 07/04/24 11:58 Temperature 36.5 C Pulse Rate 92 Respiratory Rate 14 Blood Pressure 118/65 Pulse Oximetry 95 95 Oxygen Delivery Room Air Exam Narrative: AF 97.7 118/65 92 14 95% ra Gen - NARD Chest - CTA bilaterally, nml RR CV - irregularly irregular. Tele showing atrial fibrillation with intermittent RVR Abd - Soft, NT/ND, Positive BS Ext - No pedal edema. Negative Homans Psych - Nml mood and affect Skin - Warm and dry Results Labs and Meds 07/04/24 04:17 07/04/24 04:17 Lab results: Cardiac Enzymes 07/03/24 07/03/24 07/03/24 Range/Units 17:31 20:34 23:24 AST 29 (17-59) U/L Troponin I 0.026 0.032 D 0.026 (0.000-0.034) ng/mL Coagulation 07/03/24 Range/Units 17:31 PT 12.2 (11.1-14.7) Seconds APTT 29.5 (22.3-36.8) Seconds CBC 07/03/24 07/04/24 Range/Units 17:31 04:17 WBC 10.8 H 8.5 (4.5-10.0) K/mm3 RBC 4.50 L 4.03 L (4.6-6.20) M/mm3 Hgb 15.0 13.9 L (14.0-18.0) g/dL Hct 44.3 38.9 L (42.0-52.0) % Plt Count 259 143 L (150-375) k/mm3 Lymph # (Auto) 2.43 (0.9-3.2) K/mm3 [place] # (Auto) 1.1 H (0.1-0.6) K/mm3 Eos # (Auto) 0.2 (0-0.3) K/mm3 Baso # (Auto) 0.0 (0.0-0.1) K/mm3 Comprehensive Metabolic Panel 07/03/24 07/04/24 Range/Units 17:31 04:17 Sodium 132 L 131 L (137-145) mmol/L Potassium 4.2 4.0 (3.4-5.0) mmol/L Chloride 101 104 (98-107) mmol/L Carbon Dioxide 26 23 (22-30) mmol/L BUN 26 H D 20 (9-20) mg/dL Creatinine 0.90 0.70 (0.7-1.3) mg/dL Glucose 119 H 101 (65-110) mg/dL Calcium 9.0 8.1 L (8.4-10.2) mg/dL AST 29 (17-59) U/L ALT 34 (6-50) U/L Alkaline Phosphatase 90 (38-126) U/L Total Protein 7.0 (6.3-8.2) g/dL Albumin 4.3 (3.5-5.1) g/dL Intake and Output 07/03/24 07/04/24 07/04/24 23:59 07:59 15:59 Intake Total 21 40 790 Output Total 120 Balance 21 -80 790 Intake: IV 21 40 dilTIAZem 100 MG/100 ML 100 mg 21 40 In 100 ml @ 5 MG/HR 5 mls/hr IV CONT .Q20H STA Rx#:[id number] Oral 790 Output: Urine 120 Other: # Unmeasured Voids 1 Number of Bowel Movements Today 1 Patient Weight 07/04/24 23:59 Weight 83.6 kg
[2024-07-04] MEDS: METOPROLOL TARTRATE 25 MG TABLET PO ×2 (13:10→21:30)
[2024-07-04] MEDS: DULoxetine HCL 30 MG CAPSULE.DR PO (13:10)
[2024-07-04] MEDS: PHENYTOIN SODIUM 100 MG EXTENDED RELEASE CAP PO ×2 (13:11→19:04)
[2024-07-04] MEDS: DUTASTERIDE 0.5 MG CAPSULE PO (13:11)
[2024-07-04] MEDS: ATORVASTATIN 10 MG TABLET BY MOUTH (13:11)
[2024-07-04] MEDS: dilTIAZem 100 MG/100 ML 100 MG/100 ML BAG (13:16)
[2024-07-04] MEDS: dilTIAZem 100 MG/100 ML 100 MG/100 ML BAG IV CONT (17:30)
[2024-07-05] VITALS (23 sets, daily range): BP systolic 114–161; BP diastolic 70–88; PULSE 79–129; RESP 14–18; TEMP 36.4–36.8; O2SAT 94–98
--- NOTE | 2024-07-05 00:18 | PCRCNOTE ---
Pt refused Apnea link at this time. Explained thoroughly the steps needed to do to take the test, and pt still did not want to do it.
[2024-07-05 05:02] LABS: Hematocrit 39.3 % (42.0-52.0); Hemoglobin 13.6 g/dL (14.0-18.0); Mean Corpuscular HGB Conc 34.6 g/dl (32-36); Mean Corpuscular Hemoglobin 33.7 pg (26-34); Mean Corpuscular Volume 97.3 fl (80-100); Mean Platelet Volume 10.7 fl (7.4-10.4); Platelet Count Result 198 k/mm3 (150-375); Red Blood Count 4.04 M/mm3 (4.6-6.20); Red Cell Distribution Width 13.2 % (11.5-14.5); White Blood Count 8.4 K/mm3 (4.5-10.0)
[2024-07-05 05:28] LABS: Albumin Level 3.6 g/dL (3.5-5.1); Anion Gap 2 mmol/L (4-12); Blood Urea Nitrogen 15 mg/dL (9-20); Calcium 8.5 mg/dL (8.4-10.2); Carbon Dioxide 27 mmol/L (22-30); Chloride 99 mmol/L (98-107); Estimated CRCL calculation 53 ml/min; Estimated Glomerular Filt Rate > 60; Glucose 103 mg/dL (65-110); Phosphorus 3.3 mg/dL (2.5-4.5); Potassium 4.9 mmol/L (3.4-5.0); Sodium 128 mmol/L (137-145)
[2024-07-05] MEDS: dilTIAZem 100 MG/100 ML 100 MG/100 ML BAG IV CONT (05:33)
[2024-07-05] MEDS: DUTASTERIDE 0.5 MG CAPSULE PO (09:46)
[2024-07-05] MEDS: PANTOPRAZOLE 40 MG TABLET PO (09:47)
[2024-07-05] MEDS: MULTIVITAMINS /C LUTEIN (CENTRUM SILVER) TABLET *BKC 1 TAB PO (09:47)
[2024-07-05] MEDS: DULoxetine HCL 30 MG CAPSULE.DR PO (09:47)
[2024-07-05] MEDS: METOPROLOL TARTRATE 25 MG TABLET PO ×2 (09:48→20:33)
[2024-07-05] MEDS: OPTI-GEN TAB 1 TABLET PO (09:48)
[2024-07-05] MEDS: PHENYTOIN SODIUM 100 MG EXTENDED RELEASE CAP PO ×3 (09:48→17:59)
[2024-07-05] MEDS: ATORVASTATIN 10 MG TABLET BY MOUTH (09:49)
[2024-07-05] MEDS: ASPIRIN 81 MG CHEWABLE TABLET BY MOUTH (09:49)
[2024-07-05] MEDS: ENOXAPARIN 100 MG/ML SYRINGE 86 MG SUB-Q ×2 (09:50→20:34)
[2024-07-05] MEDS: PERFLUTREN LIPID MICROSPHERES 1.5 ML VIAL DILUTED TO 10 ML TOTAL VOLUME IV PUSH (12:20)
--- NOTE | 2024-07-05 12:51 | IVDEFINITY ---
Prior to administration of IV Definity the patient was educated on the risks and benefits of the imaging enhancing agent including potential adverse side effects. The patient verbalized understanding. Allergies were verified. No exclusion criteria were identified and at least one of the following inclusion criteria were met: 1) physician request, 2) patient technically difficult to image (per the [place] [employer] guidelines of two or more segments not discernable within the apical view), or 3) questionable left ventricular function. ?
--- NOTE | 2024-07-05 15:13 | PM.IMPN ---
Progress Note: A&P Assessment and Plan (1) Atrial flutter with rapid ventricular response: Code(s): I48.92 - Unspecified atrial flutter Status: Acute Assessment and Plan: Patient presents with fatigue and elevated heart rate. Unclear on onset. EKG shows atrial flutter with RVR (130), incomplete right BBB, LAFB and LVH CXR showing minimal discoid atelectasis and/or scarring left lower lobe Troponin negative x3. BNP 3630. TSH 4.87 with normal free T4. Etiology unclear on why he developed AFlutter. [id number] is 3 (age, HTN) Patient was given diltiazem IV in the ED. Was started on Lovenox therapeutic dosing. He was started on diltiazem drip. He remains on Lovenox. Cardiology consulted. Heart rate better controlled Echo pending Change to oral diltiazem. Discuss with pharmacy about anticaogulation given the interaction with Dilantin but no good options Will consult neuro to see if we can change Dilantin out for another agent. (2) Hyponatremia: Code(s): E87.1 - Hypo-osmolality and hyponatremia Status: Acute Assessment and Plan: Patient with chronic hyponatremia most likely related to his medications. Sodium 132 on admission but dropped to 128 Check urine studies Will continue to follow (3) Seizure disorder: Code(s): G40.909 - Epilepsy, unspecified, not intractable, without status epilepticus Status: Acute Assessment and Plan: Patient with seizure disorder. Dilantin resumed. Level ordered. As above PT/OT (4) Hypertension: Code(s): I10 - Essential (primary) hypertension Status: Acute Assessment and Plan: Patient's blood pressure was reviewed on 07/05 Blood pressure remains well controlled. Will continue to follow (5) Hyperlipidemia: Code(s): E78.5 - Hyperlipidemia, unspecified Status: Acute Assessment and Plan: LFTs within normal limits. Continue Lipitor. (6) Benign prostatic hyperplasia: Code(s): N40.0 - Benign prostatic hyperplasia without lower urinary tract symptoms Status: Acute Assessment and Plan: Stable. Plan Thrombocytopenia - Plt count was 143K but better. Will monitor for now. DVT prophylaxis -Lovenox Code status -full Subjective Date/time seen: 07/05/24 15:13 Interval history: 89yo male with seizure disorder, HTT, HLD, GERD and BPH who presented to the ED via private vehicle from home for evaluation of fatigue and a fast heart rate. Eating okay. Slept poorly. No CP or SOB. No n/v. Walking to the BR. No DÍAZ Exam Narrative: AF 97.7 114/73 81 18 98% ra Gen - NARD Chest - CTA bilaterally, nml RR CV - irregularly irregular. Tele showing AFib/Flutter Abd - Soft, NT/ND, Positive BS Ext - No pedal edema. Psych - Nml mood and affect Skin - Warm and dry Objective Data Vital Signs Vital Signs: Vital Signs - 24 hr 07/04/24 16:00 07/04/24 17:30 07/04/24 16:00 Temperature 98.3 F Pulse Rate 81 82 Respiratory Rate 18 Blood Pressure 125/78 Pulse Oximetry 96 Oxygen Delivery Room Air 07/04/24 16:00 07/04/24 18:00 07/04/24 19:48 Temperature 97.6 F Pulse Rate 82 82 81 Respiratory Rate 16 Blood Pressure 143/81 H Pulse Oximetry 94 Oxygen Delivery 07/04/24 21:30 07/04/24 20:00 07/04/24 20:00 Temperature Pulse Rate 91 91 Respiratory Rate Blood Pressure 143/81 H Pulse Oximetry Oxygen Delivery Room Air 07/04/24 20:00 07/04/24 22:00 07/04/24 22:00 Temperature Pulse Rate 81 81 81 Respiratory Rate Blood Pressure 147/84 H Pulse Oximetry Oxygen Delivery 07/04/24 22:00 07/04/24 23:54 07/04/24 23:56 Temperature 97.9 F Pulse Rate 81 79 Respiratory Rate 18 Blood Pressure 147/84 H 138/88 Pulse Oximetry 96 Oxygen Delivery Room Air 07/05/24 00:00 07/05/24 00:00 07/05/24 02:00 Temperature Pulse Rate 79 80 80 Respiratory Rate Blood Pressure 138/88 Pulse Oximetry Oxygen Delivery 07/05/24 02:00 07/05/24 02:00 07/05/24 03:25 Temperature Pulse Rate 80 80 Respiratory Rate Blood Pressure 129/84 129/84 Pulse Oximetry 94 Oxygen Delivery Room Air 07/05/24 03:41 07/05/24 04:00 07/05/24 04:00 Temperature 97.9 F Pulse Rate 79 79 80 Respiratory Rate 18 Blood Pressure 161/77 H 161/77 H Pulse Oximetry 98 Oxygen Delivery 07/05/24 05:33 07/05/24 05:33 07/05/24 05:35 Temperature Pulse Rate 96 96 98 Respiratory Rate Blood Pressure 146/77 H 146/77 H Pulse Oximetry Oxygen Delivery 07/05/24 06:00 07/05/24 07:43 07/05/24 09:48 Temperature 97.6 F Pulse Rate 80 80 101 H Respiratory Rate 14 Blood Pressure 144/79 H Pulse Oximetry 97 Oxygen Delivery 07/05/24 10:00 07/05/24 08:00 07/05/24 08:00 Temperature Pulse Rate 85 129 H Respiratory Rate Blood Pressure 128/80 Pulse Oximetry Oxygen Delivery Room Air 07/05/24 10:00 07/05/24 11:49 07/05/24 11:50 Temperature 97.7 F Pulse Rate 87 81 Respiratory Rate 18 Blood Pressure 149/74 H Pulse Oximetry 98 Oxygen Delivery Room Air 07/05/24 14:00 07/05/24 14:19 Temperature Pulse Rate Respiratory Rate Blood Pressure 114/73 Pulse Oximetry Oxygen Delivery Room Air Intake/Output Intake/Output: Intake & Output 07/02/24 07/03/24 07/04/24 07/05/24 23:59 23:59 23:59 23:59 Intake Total 21 2092.5 1737.8 Output Total 645 1 Balance 21 1447.5 1736.8 Meds/Results Medications: Active Medications Generic Name Dose Route Start Last Admin Trade Name Freq PRN Reason Stop Dose Admin Acetaminophen 650 mg 07/03/24 20:03 07/04/24 03:27 Acetaminophen 325 Mg Tablet PO 325 mg Q4H PRN Administration Mild Pain (1-3) or Fever Aspirin 81 mg 07/05/24 09:00 07/05/24 09:49 Aspirin 81 Mg Chewable Tablet BY MOUTH 81 mg DAILY SARA Administration Atorvastatin Calcium 10 mg 07/04/24 12:35 07/05/24 09:49 Atorvastatin 10 Mg Tablet BY MOUTH 10 mg DAILY SARA Administration Duloxetine HCl 30 mg 07/04/24 12:35 07/05/24 09:47 Duloxetine Hcl 30 Mg Capsule.Dr PO 30 mg DAILY SARA Administration Dutasteride 0.5 mg 07/04/24 12:35 07/05/24 09:46 Dutasteride 0.5 Mg Capsule PO 0.5 mg DAILY SARA Administration Enoxaparin Sodium 86 mg 07/04/24 09:00 07/05/24 09:50 Enoxaparin 100 Mg/Ml Syringe SUB-Q 86 mg Q12HR SARA Administration Fluticasone Propionate 2 spray 07/04/24 12:30 Fluticasone Propionate 0.05% Na Spr 16 Gm Btl (*Bkc) NASAL DAILY PRN Congestion Diltiazem HCl 100 mg in 100 mls @ 5 mls/hr 07/04/24 17:30 07/05/24 05:33 Cardizem 100 Mg/100 Ml IV CONT 5 mg/hr .Q20H SARA 5 mls/hr Administration 5 MG/HR Lidocaine 1 patch 07/04/24 12:35 07/04/24 17:31 Lidocaine 5% Patch TRANSDERM Not Given DAILY SARA Metoprolol Tartrate 25 mg 07/04/24 13:00 07/05/24 09:48 Metoprolol Tartrate 25 Mg Tablet PO 25 mg Q12HR SARA Administration Multivitamins/Minerals 1 tab 07/05/24 09:00 07/05/24 09:47 Multivitamins /C Lutein (Centrum Silver) Tablet *Bkc PO 08/04/24 08:59 1 tab DAILY SARA Administration Multivitamins/Minerals 1 tablet 07/05/24 09:00 07/05/24 09:48 Opti-Gen Tab PO 1 tablet QAM SARA Administration Pantoprazole Sodium 40 mg 07/05/24 09:00 07/05/24 09:47 Pantoprazole 40 Mg Tablet PO 40 mg QAM SARA Administration Phenytoin Sodium 100 mg 07/04/24 13:00 07/05/24 09:48 Phenytoin Sodium 100 Mg Extended Release Cap PO 100 mg TID SARA Administration Radiology Results: ITS Impressions Chest X-Ray 07/03/24 17:48 IMPRESSION: Minimal discoid atelectasis and/or scarring in the left lower lung Labs Labs: Laboratory Results - last 24 hr 07/05/24 03:46 WBC 8.4 RBC 4.04 L Hgb 13.6 L Hct 39.3 L MCV 97.3 MCH 33.7 MCHC 34.6 RDW 13.2 Plt Count 198 MPV 10.7 H Sodium 128 L Potassium 4.9 Chloride 99 Carbon Dioxide 27 Anion Gap 2 L BUN 15 D Creatinine 0.80 Estim Creat Clear Calc 53 Estimated GFR > 60 Glucose 103 Calcium 8.5 Phosphorus 3.3 Magnesium 2.0 Albumin 3.6
[2024-07-05] MEDS: dilTIAZem HCL 30 MG TABLET PO (17:59)
--- NOTE | 2024-07-05 21:12 | ECHO_ITS ---
Patient Info Name: Adalid Smith Age: 89 years : 1935 Gender: Male Ht: 69 in Wt: 189 lbs BSA: 2.06 m2 HR: 80 bpm BP: 146 / 77 mmHg Technical Quality: Poor Exam Date: 07/05/2024 10:33 AM Exam Location: Echo Lab Patient Status: Inpatient Admit Date: 07/04/2024 Staff Ordering Physician: Melissa Mata PA-C Screener And Blender: Luis E Pereira RDCS Attending Provider: Dung Steen MD Referring Physician: Adolfo CABALLERO; Exam Type: CA echo dop color flow w con Study Info Indications - ATRIAL FLUTTER/RVR Complete two-dimensional, color flow and Doppler transthoracic echocardiogram is performed with contrast to opacify the left ventricle and to improve the deliniation of the left ventricle endocardial borders. Contrast/Agitated Saline Contrast/Ag. Saline: Definity Amount: 2.00 ml Existing IV Access: Yes Reason for Poor Study: poor echocardiographic windows Summary 1. Left ventricular chamber dimension is normal. 2. Left ventricular systolic function is normal, estimated at 65-70%. 3. There is mildly increased left ventricular wall thickness. 4. Right ventricular systolic function is normal. 5. Left atrial chamber dimension is mildly enlarged. 6. There is mild mitral valve regurgitation. Left Ventricle Left ventricular chamber dimension is normal. Left ventricular systolic function is normal, estimated at 65-70%. There is mildly increased left ventricular wall thickness. Right Ventricle Right ventricular chamber dimension is normal. Right ventricular systolic function is normal. Left Atria Left atrial chamber dimension is mildly enlarged. Right Atria Right atrial chamber dimension is normal. Atrial Septum Intact interatrial septum visualized by color flow imaging. Aortic Valve The aortic valve is probable trileaflet. There is no aortic valve stenosis. There is no aortic valve regurgitation. There is mild aortic valve calcification. Pulmonic Valve The pulmonic valve is not well visualized. There is no pulmonic regurgitation. Mitral Valve There is mild mitral valve regurgitation. Tricuspid Valve There is trace tricuspid valve regurgitation. Pericardium/Pleural The pericardium appears epicardial fat pad. There is no pericardial effusion. Inferior Vena Cava Normal inferior vena cava with >50% collapse upon inspiration consistent with normal right atrial pressure, 3 mmHg. Aorta The aortic root size at the sinus of Valsalva is normal. Left Ventricular Outflow Tract Name Value Normal LVOT 2D LVOT Diameter 2.22 cm LVOT Doppler LVOT Peak Gradient 3 mmHg LVOT Mean Gradient 2 mmHg LVOT VTI 14.90 cm LVOT VTI/AV VTI Ratio 0.84 LVOT Stroke Volume 57.79 ml LVOT CO 4.78 l/min LVOT CI 2.32 L/min/m2 Pulmonic Valve Name Value Normal RVOT Doppler RVOT Peak Gradient 2 mmHg PV Doppler PV Peak Gradient 4 mmHg Mitral Valve Name Value Normal MV Doppler MV Peak Gradient 4 mmHg MV Mean Gradient 2 mmHg MV Decel [place] 1,050.60 cm/s2 MV PHT 0 s MV Area (PHT) 12.94 cm2 4.00-5.00 MV Area (Cont Eq VTI) 3.22 cm2 MV Diastolic Function MV E Peak Velocity 61.60 cm/s MV A Peak Velocity 78.16 cm/s MV E/A 0.79 MV Decel Time 0 s Tricuspid Valve Name Value Normal Estimated PAP/RSVP RA Pressure 3 mmHg <=5 Aorta Name Value Normal Ascending Aorta Ao Root Diameter (MM) 3.86 cm Ao Root Diam Index (MM) 1.87 cm/m2 Aortic Valve Name Value Normal AV Doppler AV Peak Velocity 100.28 cm/s AV Peak Gradient 3 mmHg AV Mean Gradient 2 mmHg AV VTI 17.80 cm AV Area (Cont Eq VTI) 3.25 cm2 >=3.00 AV Area (Cont Eq Christ) 3.94 cm2 AV Regurgitation 2D LVOT Area 3.88 cm2 Ventricles Name Value Normal LV Dimensions 2D/MM IVS Diastolic Thickness (2D) 0.96 cm 0.60-1.00 LVID Diastole (2D) 3.44 cm 4.20-5.80 LVIW Diastolic Thickness (2D) 1.18 cm 0.60-1.00 LVID Systole (2D) 2.11 cm 2.50-4.00 LVOT Diameter 2.22 cm LV Mass (2D Cubed) 111.47 g 88.00-224.00 LV Mass Index (2D Cubed) 0.01 g/cm2 0.00-0.01 Relative Wall Thickness (2D) 0.68 LV Fractional Shortening/Ejection Fraction 2D/MM LV Fractional Shortening (2D) 38 % 25-43 LV EF (2D Teichted) 69 % 52-72 LV Diastolic Volume (4C MOD) 74.95 ml LV EF (4C MOD) 67 % LV Diastolic Volume (2C MOD) 93.10 ml LV EF (2C MOD) 80 % LV Diastolic Volume (BP MOD) 86.66 ml 62.00-150.00 LV Diastolic Volume Index (BP MOD) 0.04 l/m2 0.03-0.07 LV Systolic Volume (BP MOD) 22.43 ml 21.00-61.00 LV Systolic Volume Index (BP MOD) 0.01 l/m2 0.01-0.03 LV EF (BP MOD) 74 % 52-72 LV Diastolic Length (4C) 7.27 cm LV Systolic Length (4C) 6.26 cm LV Stroke Volume (4C MOD) 50.49 ml Atria Name Value Normal LA Dimensions LA Dimension (MM) 3.86 cm 3.00-4.10 LA Volume (4C A-L) 67.28 ml LA Volume (BP A-L) 79.62 ml RA Dimensions RA Area (4C) 13.28 cm2 <=18.00 Report Signatures
[2024-07-06] VITALS (22 sets, daily range): BP systolic 104–141; BP diastolic 66–81; PULSE 77–138; RESP 16–20; TEMP 36.3–37.1; O2SAT 97–100
--- NOTE | 2024-07-06 00:32 | PC.NURSE ---
Patient woke up confused. Refused to take diltiazem. Stated, you are trying to kill me . T Reilly notified.
--- NOTE | 2024-07-06 00:34 | PM.EVENT ---
Event Note Event Note Event Note: Received call from IMU RN that patient repeatedly refused oral diltiazem, heart rate 82 and irregular. Notified to call back if patient got tachycardic and needed to go back on drip.
[2024-07-06] MEDS: dilTIAZem HCL 30 MG TABLET PO ×2 (04:15→12:03)
[2024-07-06 05:11] LABS: Anion Gap 3 mmol/L (4-12); Blood Urea Nitrogen 15 mg/dL (9-20); Calcium 8.6 mg/dL (8.4-10.2); Carbon Dioxide 25 mmol/L (22-30); Chloride 99 mmol/L (98-107); Estimated CRCL calculation 53 ml/min; Estimated Glomerular Filt Rate > 60; Glucose 102 mg/dL (65-110); Potassium 4.5 mmol/L (3.4-5.0); Sodium 127 mmol/L (137-145)
[2024-07-06 05:34] LABS: Creatinine Urine 124.3 mg/dL
[2024-07-06 05:39] LABS: Sodium Urine Random 47 meq/L
[2024-07-06] MEDS: OPTI-GEN TAB 1 TABLET PO (08:23)
[2024-07-06] MEDS: PANTOPRAZOLE 40 MG TABLET PO (08:24)
[2024-07-06] MEDS: DUTASTERIDE 0.5 MG CAPSULE PO (08:24)
[2024-07-06] MEDS: MULTIVITAMINS /C LUTEIN (CENTRUM SILVER) TABLET *BKC 1 TAB PO (08:24)
[2024-07-06] MEDS: METOPROLOL TARTRATE 25 MG TABLET PO ×4 (08:24→23:19)
[2024-07-06] MEDS: PHENYTOIN SODIUM 100 MG EXTENDED RELEASE CAP PO ×2 (08:24→12:03)
[2024-07-06] MEDS: DULoxetine HCL 30 MG CAPSULE.DR PO (08:24)
[2024-07-06] MEDS: ASPIRIN 81 MG CHEWABLE TABLET BY MOUTH (08:24)
[2024-07-06] MEDS: ATORVASTATIN 10 MG TABLET BY MOUTH (08:24)
[2024-07-06] MEDS: ENOXAPARIN 100 MG/ML SYRINGE 86 MG SUB-Q ×2 (08:25→20:24)
--- NOTE | 2024-07-06 10:10 | P.PNCA_ITS ---
Progress Note: A&P Assessment and Plan (1) Atrial flutter with rapid ventricular response: Code(s): I48.92 - Unspecified atrial flutter Status: Acute (2) Hypertension: Code(s): I10 - Essential (primary) hypertension Status: Acute (3) Hyperlipidemia: Code(s): E78.5 - Hyperlipidemia, unspecified Status: Acute Plan 1. Seizure disorder, on phenytoin 2. HTN 3. Hyperlipidemia 4. Atrial Flutter, CHADSVASC 3 - His rate became intermittently uncontrolled when diltiazem drip discontinued, so will increase metoprolol to 25mg q6h - He is on diltiazem which has significant interaction with phenytoin, will discontinue and up titrate metoprolol for rate control as needed. - Will add p.r.n. lopressor for tachycardia - Will need to be on anticoagulation. Currently on therapeutic dose lovenox. Will need to be switched to warfarin as DOACs have significant interaction with phenytoin -Cardiology will follow his telemetry while he is hospitalized. Please call with questions. Subjective Date/time seen: 07/06/24 10:10 Interval history: Cardiology follow up for AF RVR Feels good today and has no specific complaints. Denies palpitations, shortness of breath, chest pain. Review of Systems Review of Systems: 12 systems were reviewed and are negativ e except for as per HPI. All systems reviewed & are unremarkable except as noted in HPI and below Exam Const: General: comfortable, no acute distress, alert and awake Orientation/consciousness: patient oriented x3 HENMT: Head: normal to inspection Eyes: General: appearance normal, both eyes and all related structures Pupils: Equal, round and reactive pupils present Neck: Neck: normal visual inspection, supple and no JVD Carotids: normal carotid upstroke Resp: Effort & Inspection: normal respiratory effort Auscultation: clear to auscultation bilaterally Cardio: Rate: regular rate Rhythm: abnormal rhythm Heart sounds: S1 normal heart sound present, S2 normal heart sound present and no murmurs GI: Auscultation: normal bowel sounds Skin: General skin exam: normal color Neuro: General: patient oriented x3 Cranial nerves: Yes Equal, round and reactive pupils present Extrem: General: normal to inspection Psych: Appearance: grossly normal Mental Status: mental status grossly normal Objective Data Vital Signs Vital Signs: Vital Signs - 24 hr 07/05/24 11:49 07/05/24 11:50 07/05/24 14:00 Temperature 36.5 C Pulse Rate 81 Respiratory Rate 18 Blood Pressure 149/74 H 114/73 Pulse Oximetry 98 Oxygen Delivery Room Air 07/05/24 14:19 07/05/24 12:00 07/05/24 12:00 Temperature Pulse Rate 81 Respiratory Rate Blood Pressure Pulse Oximetry Oxygen Delivery Room Air Room Air 07/05/24 14:00 07/05/24 16:00 07/05/24 16:00 Temperature Pulse Rate 81 84 Respiratory Rate Blood Pressure Pulse Oximetry Oxygen Delivery Room Air 07/05/24 15:30 07/05/24 12:00 07/05/24 14:00 Temperature 36.6 C Pulse Rate 81 82 84 Respiratory Rate 18 Blood Pressure 132/81 149/74 H 114/73 Pulse Oximetry 98 Oxygen Delivery 07/05/24 18:00 07/05/24 18:00 07/05/24 18:57 Temperature Pulse Rate 84 84 80 Respiratory Rate Blood Pressure 127/70 Pulse Oximetry 98 Oxygen Delivery 07/05/24 19:44 07/05/24 19:53 07/05/24 20:33 Temperature 36.8 C Pulse Rate 82 82 79 Respiratory Rate 18 18 Blood Pressure 122/77 Pulse Oximetry 97 97 Oxygen Delivery Room Air 07/05/24 20:00 07/05/24 22:10 07/06/24 00:00 Temperature Pulse Rate 80 80 80 Respiratory Rate 18 Blood Pressure Pulse Oximetry 97 Oxygen Delivery Room Air 07/06/24 00:10 07/06/24 00:00 07/06/24 02:21 Temperature 36.7 C Pulse Rate 77 79 82 Respiratory Rate 18 Blood Pressure 136/70 Pulse Oximetry 97 Oxygen Delivery 07/06/24 04:00 07/06/24 04:07 07/06/24 04:00 Temperature 37.1 C Pulse Rate 82 119 H 83 Respiratory Rate 18 18 Blood Pressure 115/77 Pulse Oximetry 97 99 Oxygen Delivery Room Air 07/06/24 05:59 07/06/24 07:28 07/06/24 08:24 Temperature 36.3 C L Pulse Rate 80 81 123 H Respiratory Rate 18 Blood Pressure 141/70 H Pulse Oximetry 97 Oxygen Delivery Intake/Output Intake/Output: Intake & Output 07/03/24 07/04/24 07/05/24 11/26/24 23:59 23:59 23:59 23:59 Intake Total 21 2092.5 2944.9 980 Output Total 645 401 750 Balance 21 1447.5 2543.9 230 Meds/Results Medications: Active Medications Generic Name Dose Route Start Last Admin Trade Name Freq PRN Reason Stop Dose Admin Acetaminophen 650 mg 07/03/24 20:03 07/04/24 03:27 Acetaminophen 325 Mg Tablet PO 325 mg Q4H PRN Administration Mild Pain (1-3) or Fever Aspirin 81 mg 07/05/24 09:00 07/06/24 08:24 Aspirin 81 Mg Chewable Tablet BY MOUTH 81 mg DAILY SARA Administration Atorvastatin Calcium 10 mg 07/04/24 12:35 07/06/24 08:24 Atorvastatin 10 Mg Tablet BY MOUTH 10 mg DAILY SARA Administration Diltiazem HCl 30 mg 07/05/24 18:00 07/06/24 04:15 Diltiazem Hcl 30 Mg Tablet PO 30 mg Q6HR SARA Administration Duloxetine HCl 30 mg 07/04/24 12:35 07/06/24 08:24 Duloxetine Hcl 30 Mg Capsule.Dr PO 30 mg DAILY SARA Administration Dutasteride 0.5 mg 07/04/24 12:35 07/06/24 08:24 Dutasteride 0.5 Mg Capsule PO 0.5 mg DAILY SARA Administration Enoxaparin Sodium 86 mg 07/04/24 09:00 07/06/24 08:25 Enoxaparin 100 Mg/Ml Syringe SUB-Q 86 mg Q12HR SARA Administration Fluticasone Propionate 2 spray 07/04/24 12:30 Fluticasone Propionate 0.05% Na Spr 16 Gm Btl (*Bkc) NASAL DAILY PRN Congestion Lidocaine 1 patch 07/04/24 12:35 07/06/24 08:25 Lidocaine 5% Patch TRANSDERM Not Given DAILY [facility] Metoprolol Tartrate 25 mg 07/04/24 13:00 07/06/24 08:24 Metoprolol Tartrate 25 Mg Tablet PO 25 mg Q12HR SARA Administration Multivitamins/Minerals 1 tab 07/05/24 09:00 07/06/24 08:24 Multivitamins /C Lutein (Centrum Silver) Tablet *Bkc PO 08/04/24 08:59 1 tab DAILY SARA Administration Multivitamins/Minerals 1 tablet 07/05/24 09:00 07/06/24 08:23 Opti-Gen Tab PO 1 tablet QAM SARA Administration Pantoprazole Sodium 40 mg 07/05/24 09:00 07/06/24 08:24 Pantoprazole 40 Mg Tablet PO 40 mg QAM SARA Administration Phenytoin Sodium 100 mg 07/04/24 13:00 07/06/24 08:24 Phenytoin Sodium 100 Mg Extended Release Cap PO 100 mg TID SARA Administration Radiology Results: ITS Impressions Chest X-Ray 07/03/24 17:48 IMPRESSION: Minimal discoid atelectasis and/or scarring in the left lower lung Labs Labs: Laboratory Results - last 24 hr 07/05/24 07/06/24 19:24 04:29 Sodium 127 L Potassium 4.5 Chloride 99 Carbon Dioxide 25 Anion Gap 3 L BUN 15 Creatinine 0.80 Estim Creat Clear Calc 53 Estimated GFR > 60 Glucose 102 Calcium 8.6 Ur Random Sodium 47 Urine Creatinine 124.3 Quality VTE Prophylaxis VTE prophylaxis: pharmacologic ordered
--- NOTE | 2024-07-06 11:20 | PCPTNOTE ---
Attempted to see patient for Physical Therapy this morning. RN requested for patient to get his heart medication first, prior to therapy due to his heart rate being high.
--- NOTE | 2024-07-06 12:29 | P.CONNEU_ITS ---
Assessment and Plan Assessment and plan (1) Seizure disorder: Code(s): G40.909 - Epilepsy, unspecified, not intractable, without status epilepticus Status: Acute Plan 1. Ongoing history of seizure disorder though he has been asymptomatic for long time ,patient has been taking Dilantin and question has been raised regarding change of the medication to other anticonvulsants, discussed with him thoroughly in front of his suggested to take Keppra 750mg twice a day and the Dilantin can be discontinued 2. He does have ongoing history of hyponatremia which obviously is being tackled. If any question arises please do not hesitate to contact me Consult date: 07/06/24 HPI: Adalid Smith is a 89 year old male admitted to the hospital through the emergency room where he came by private car with his complaining of sudden onset of increased heart rate while sitting and watching TV for the last 6hours along with sensation of diaphoresis but no history of chills fever difficulties in breathing or chest discomfort. Patient does carry the history of hypertension and hyperlipidemia and has been taking the baby aspirin once a day in addition he has old history of seizure disorder and has been taking the Dilantin reportedly he does not smoke or drink. His medications at the time of admission to the hospital did include aspirin 81mg daily, duloxetine 30mg daily, phenytoin 100mg capsule 3 of them daily and meloxicam 15mg daily. He is not known to be allergic to any medication. He does have ongoing history of benign prostatic hyperplasia, GERD, depression, and seizures, he has also undergone cataract extraction with lens implantation on initial examination in the emergency room he was without any gross neurological deficit. His vital signs were normal except blood pressure 163/87 CBC was normal, BMP was normal, the sodium was borderline 132, and the mast scan was negative except his lipase was 396, chest x-ray revealed minimal discoid atelectasis or scarring, EKG revealed atrial flutter with tachycardia 130 beats per minute and incomplete and right bundle branch block occasional PVCs, he received the Cardizem bolus and drip in the ER since admission in the ER his x-ray chest is fairly normal, has been seen by the Cardiology for the atrial flutter with rapid ventricular response heart rate is better controlled but as he is on diltiazem which is significant interaction with phenytoin consultation has been obtained to change the anticonvulsant though he has already been started on metoprolol and switched over to oral diltiazem. Review of Systems Review of Systems: All systems reviewed & are unremarkable except as noted in HPI and below PMFSH Past Medical History Medical History Allergic rhinitis Arthritis Benign prostatic hyperplasia Depression Gastroesophageal reflux disease Hyperlipidemia Hypertension Seizure disorder Surgical History Surgical History History of cataract extraction with lens replacement History of hand surgery Finger surgery Family History Family History Sibling Leukemia Mother Tuberculosis Other Diabetes mellitus Social History Social History Social History: Surrogate medical decision maker: Swathi Sarah, spouse. Code status: Full code. Smoking status: Never smoker Alcohol intake: never Substance use: never Do You Feel Safe in your Home?: Yes Lack of Transportation: No Lack of Food: Never True Current Housing: I Have Housing Concerned About Future Housing: No Difficulty Paying Gas/Electric Bills: No Difficulty Paying for Meds: No Currently Unemployed: No Education: Master's Degree or Higher Difficulty w/ Childcare or Family Care: No Additional living arrangements comments: Lives with spouse of 65 years in [place]. 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 Spiritual care concerns: No Meds Home Medications and Allergies Home Medications Medication Instructions Recorded Confirmed Type aspirin 81 mg chewable tablet 81 mg DAILY 07/13/19 07/03/24 History fluticasone propionate 50 50 mcg intranasal DIRECTED PRN 07/13/19 07/03/24 History mcg/actuation nasal Congestion spray,suspension omeprazole 20 mg capsule,delayed 20 mg PO DAILY 07/13/19 07/03/24 History release atorvastatin 10 mg tablet 10 mg DAILY 07/17/19 07/03/24 History dutasteride 0.5 mg capsule 0.5 mg PO DAILY 07/17/19 07/03/24 History (Avodart) phenytoin sodium extended 100 mg 100 mg PO TID 07/17/19 07/03/24 History capsule (Dilantin Extended) Eye Vitamin 1 tablet EACH EYE DAILY 03/25/21 07/03/24 History duloxetine 30 mg capsule,delayed 30 mg PO DAILY 07/09/23 07/03/24 History release Centrum Silver Men 1 tablet PO DAILY 09/05/23 07/03/24 History meloxicam 15 mg tablet 15 mg PO DAILY 09/05/23 07/03/24 History lidocaine 5 % topical patch 1 patch transdermal DAILY #7 ea 09/07/23 07/03/24 Rx (Lidoderm) Allergies Allergy/AdvReac Type Severity Reaction Status Date / Time No Known Allergies Allergy Verified 07/03/24 17:47 Vital Signs Vital Signs - 24 hr 07/05/24 14:00 07/05/24 14:19 07/05/24 14:00 Temperature Pulse Rate 81 Respiratory Rate Blood Pressure 114/73 Pulse Oximetry Oxygen Delivery Room Air 07/05/24 16:00 07/05/24 16:00 07/05/24 15:30 Temperature 36.6 C Pulse Rate 84 81 Respiratory Rate 18 Blood Pressure 132/81 Pulse Oximetry 98 Oxygen Delivery Room Air 07/05/24 14:00 07/05/24 18:00 07/05/24 18:00 Temperature Pulse Rate 84 84 84 Respiratory Rate Blood Pressure 114/73 127/70 Pulse Oximetry 98 Oxygen Delivery 07/05/24 18:57 07/05/24 19:44 07/05/24 19:53 Temperature 36.8 C Pulse Rate 80 82 82 Respiratory Rate 18 18 Blood Pressure 122/77 Pulse Oximetry 97 97 Oxygen Delivery Room Air 07/05/24 20:33 07/05/24 20:00 07/05/24 22:10 Temperature Pulse Rate 79 80 80 Respiratory Rate Blood Pressure Pulse Oximetry Oxygen Delivery 07/06/24 00:00 07/06/24 00:10 07/06/24 00:00 Temperature 36.7 C Pulse Rate 80 77 79 Respiratory Rate 18 18 Blood Pressure 136/70 Pulse Oximetry 97 97 Oxygen Delivery Room Air 07/06/24 02:21 07/06/24 04:00 07/06/24 04:07 Temperature 37.1 C Pulse Rate 82 82 119 H Respiratory Rate 18 18 Blood Pressure 115/77 Pulse Oximetry 97 99 Oxygen Delivery Room Air 07/06/24 04:00 07/06/24 05:59 07/06/24 07:28 Temperature 36.3 C L Pulse Rate 83 80 81 Respiratory Rate 18 Blood Pressure 141/70 H Pulse Oximetry 97 Oxygen Delivery 07/06/24 08:24 07/06/24 11:38 07/06/24 12:03 Temperature 36.3 C L Pulse Rate 123 H 89 104 H Respiratory Rate 18 Blood Pressure 104/66 Pulse Oximetry 97 Oxygen Delivery Exam Narrative: Examination today revealed him to be awake alert cooperative in no obvious acute distress, head normocephalic with no bruit, ear nose throat examination normal, neck supple with no cervical bruit, heart regular, lungs clear with no rhonchi or crepitations, abdomen is soft nontender, neurologically he was awake alert able to carry out the conversation his speech was not dysphasic not dysarthric not dysphonic, pupils were round regular feels the vision were full extraocular movements are full face symmetrical tongue midline motor examination revealed him to fairly normal strength in upper and lower extremities with no cogwheeling or rigidity and no spontaneous tremor or resting tremor. Results Labs 07/05/24 03:46 07/06/24 04:29 Labs: BMP 07/06/24 04:29 Sodium 127 L Potassium 4.5 Chloride 99 Carbon Dioxide 25 BUN 15 Creatinine 0.80 Glucose 102 Calcium 8.6
--- NOTE | 2024-07-06 13:12 | PM.IMPN ---
Progress Note: A&P Assessment and Plan (1) Atrial flutter with rapid ventricular response: Code(s): I48.92 - Unspecified atrial flutter Status: Acute Assessment and Plan: Patient presents with fatigue and elevated heart rate. Unclear on onset. EKG shows atrial flutter with RVR (130), incomplete right BBB, LAFB and LVH CXR showing minimal discoid atelectasis and/or scarring left lower lobe Troponin negative x3. BNP 3630. TSH 4.87 with normal free T4. Etiology unclear on why he developed AFlutter. [id number] is 3 (age, HTN) Echo showing EF 65-70% and mild MR. Patient was given diltiazem IV in the ED. Was started on Lovenox therapeutic dosing. He was started on diltiazem drip. He remains on Lovenox. Cardiology consulted. Changed to oral diltiazem and oral metoprolol added. Heart rate worse today probably due to the missed medication. Lopressor advanced and diltiazem stopped. Discuss with pharmacy about anticoagulation given the interaction with Dilantin but no good options so Neuro consulted and recommended Keppra 750mg Q12h. Change Dilantin to Keppra today. Change to long acting lopressor if HR okay. (2) Hyponatremia: Code(s): E87.1 - Hypo-osmolality and hyponatremia Status: Acute Assessment and Plan: Patient with chronic hyponatremia most likely related to his medications. Sodium 132 on admission but dropped to 127 Loren 47 with FENa 0.2% so possibly prerenal. Continue to follow (3) Seizure disorder: Code(s): G40.909 - Epilepsy, unspecified, not intractable, without status epilepticus Status: Acute Assessment and Plan: Patient with seizure disorder. Dilantin resumed and level ordered. Changed to Keppra today. PT/OT (4) Hypertension: Code(s): I10 - Essential (primary) hypertension Status: Acute Assessment and Plan: Patient's blood pressure was reviewed on 07/06 Blood pressure remains well controlled. Will continue to follow (5) Hyperlipidemia: Code(s): E78.5 - Hyperlipidemia, unspecified Status: Acute Assessment and Plan: LFTs within normal limits. Continue Lipitor. (6) Benign prostatic hyperplasia: Code(s): N40.0 - Benign prostatic hyperplasia without lower urinary tract symptoms Status: Acute Assessment and Plan: Stable. Plan Thrombocytopenia - Plt count was 143K but better. Will monitor periodically for now. DVT prophylaxis -Lovenox Code status -full Subjective Date/time seen: 07/06/24 13:12 Interval history: 89yo male with seizure disorder, HTT, HLD, GERD and BPH who presented to the ED via private vehicle from home for evaluation of fatigue and a fast heart rate. Feeling better. Slept well last night. He refused diltiazem last night because he didnt want to bother. No CP. Mild diaphoretic lst night. He has been told that he jaylan need to come off dilantin at some point. He was having visual hallucinations yesterday. Exam Narrative: AF 97.4 104/66 104 18 97% ra Gen - NARD Chest - CTA bilaterally, nml RR CV - irregularly irregular. Tele showing AFib/Flutter with RVR Abd - Soft, NT/ND, Positive BS Ext - No pedal edema. Psych - Nml mood and affect Skin - Warm and dry Objective Data Vital Signs Vital Signs: Vital Signs - 24 hr 07/05/24 14:00 07/05/24 14:19 07/05/24 14:00 Temperature Pulse Rate 81 Respiratory Rate Blood Pressure 114/73 Pulse Oximetry Oxygen Delivery Room Air 07/05/24 16:00 07/05/24 16:00 07/05/24 15:30 Temperature 98 F Pulse Rate 84 81 Respiratory Rate 18 Blood Pressure 132/81 Pulse Oximetry 98 Oxygen Delivery Room Air 07/05/24 14:00 07/05/24 18:00 07/05/24 18:00 Temperature Pulse Rate 84 84 84 Respiratory Rate Blood Pressure 114/73 127/70 Pulse Oximetry 98 Oxygen Delivery 07/05/24 18:57 07/05/24 19:44 07/05/24 19:53 Temperature 98.2 F Pulse Rate 80 82 82 Respiratory Rate 18 18 Blood Pressure 122/77 Pulse Oximetry 97 97 Oxygen Delivery Room Air 07/05/24 20:33 07/05/24 20:00 07/05/24 22:10 Temperature Pulse Rate 79 80 80 Respiratory Rate Blood Pressure Pulse Oximetry Oxygen Delivery 07/06/24 00:00 07/06/24 00:10 07/06/24 00:00 Temperature 98.0 F Pulse Rate 80 77 79 Respiratory Rate 18 18 Blood Pressure 136/70 Pulse Oximetry 97 97 Oxygen Delivery Room Air 07/06/24 02:21 07/06/24 04:00 07/06/24 04:07 Temperature 98.7 F Pulse Rate 82 82 119 H Respiratory Rate 18 18 Blood Pressure 115/77 Pulse Oximetry 97 99 Oxygen Delivery Room Air 07/06/24 04:00 07/06/24 05:59 07/06/24 07:28 Temperature 97.4 F L Pulse Rate 83 80 81 Respiratory Rate 18 Blood Pressure 141/70 H Pulse Oximetry 97 Oxygen Delivery 07/06/24 08:24 07/06/24 11:38 07/06/24 12:03 Temperature 97.4 F L Pulse Rate 123 H 89 104 H Respiratory Rate 18 Blood Pressure 104/66 Pulse Oximetry 97 Oxygen Delivery 07/06/24 08:00 07/06/24 10:00 07/06/24 12:00 Temperature Pulse Rate 138 H 120 H 109 H Respiratory Rate Blood Pressure Pulse Oximetry Oxygen Delivery Intake/Output Intake/Output: Intake & Output 07/03/24 07/04/24 07/05/24 07/06/24 23:59 23:59 23:59 23:59 Intake Total 21 2092.5 2944.9 980 Output Total 645 401 750 Balance 21 1447.5 2543.9 230 Meds/Results Medications: Active Medications Generic Name Dose Route Start Last Admin Trade Name Freq PRN Reason Stop Dose Admin Acetaminophen 650 mg 07/03/24 20:03 07/04/24 03:27 Acetaminophen 325 Mg Tablet PO 325 mg Q4H PRN Administration Mild Pain (1-3) or Fever Aspirin 81 mg 07/05/24 09:00 07/06/24 08:24 Aspirin 81 Mg Chewable Tablet BY MOUTH 81 mg DAILY SARA Administration Atorvastatin Calcium 10 mg 07/04/24 12:35 07/06/24 08:24 Atorvastatin 10 Mg Tablet BY MOUTH 10 mg DAILY SARA Administration Diltiazem HCl 30 mg 07/05/24 18:00 07/06/24 12:03 Diltiazem Hcl 30 Mg Tablet PO 30 mg Q6HR SARA Administration Duloxetine HCl 30 mg 07/04/24 12:35 07/06/24 08:24 Duloxetine Hcl 30 Mg Capsule.Dr PO 30 mg DAILY SARA Administration Dutasteride 0.5 mg 07/04/24 12:35 07/06/24 08:24 Dutasteride 0.5 Mg Capsule PO 0.5 mg DAILY SARA Administration Enoxaparin Sodium 86 mg 07/04/24 09:00 07/06/24 08:25 Enoxaparin 100 Mg/Ml Syringe SUB-Q 86 mg Q12HR SARA Administration Fluticasone Propionate 2 spray 07/04/24 12:30 Fluticasone Propionate 0.05% Na Spr 16 Gm Btl (*Bkc) NASAL DAILY PRN Congestion Lidocaine 1 patch 07/04/24 12:35 07/06/24 08:25 Lidocaine 5% Patch TRANSDERM Not Given DAILY SARA Metoprolol Tartrate 25 mg 07/06/24 12:00 07/06/24 12:03 Metoprolol Tartrate 25 Mg Tablet PO 25 mg Q6H SARA Administration Multivitamins/Minerals 1 tab 07/05/24 09:00 07/06/24 08:24 Multivitamins /C Lutein (Centrum Silver) Tablet *Bkc PO 08/04/24 08:59 1 tab DAILY SARA Administration Multivitamins/Minerals 1 tablet 07/05/24 09:00 07/06/24 08:23 Opti-Gen Tab PO 1 tablet QAM SARA Administration Pantoprazole Sodium 40 mg 07/05/24 09:00 07/06/24 08:24 Pantoprazole 40 Mg Tablet PO 40 mg QAM SARA Administration Phenytoin Sodium 100 mg 07/04/24 13:00 07/06/24 12:03 Phenytoin Sodium 100 Mg Extended Release Cap PO 100 mg TID SARA Administration Radiology Results: ITS Impressions Chest X-Ray 07/03/24 17:48 IMPRESSION: Minimal discoid atelectasis and/or scarring in the left lower lung Labs Labs: Laboratory Results - last 24 hr 07/05/24 07/06/24 19:24 04:29 Sodium 127 L Potassium 4.5 Chloride 99 Carbon Dioxide 25 Anion Gap 3 L BUN 15 Creatinine 0.80 Estim Creat Clear Calc 53 Estimated GFR > 60 Glucose 102 Calcium 8.6 Ur Random Sodium 47 Urine Creatinine 124.3
[2024-07-06] MEDS: levETIRAcetam Tablet 250 MG, levETIRAcetam Tablet 500 MG 750 MG PO (20:24)
[2024-07-07] VITALS (18 sets, daily range): BP systolic 99–123; BP diastolic 58–73; PULSE 65–109; RESP 16–20; TEMP 36.5–37; O2SAT 94–97
[2024-07-07 05:34] LABS: Anion Gap 2 mmol/L (4-12); Blood Urea Nitrogen 16 mg/dL (9-20); Calcium 8.1 mg/dL (8.4-10.2); Carbon Dioxide 24 mmol/L (22-30); Chloride 100 mmol/L (98-107); Estimated CRCL calculation 60 ml/min; Estimated Glomerular Filt Rate > 60; Glucose 89 mg/dL (65-110); Potassium 4.2 mmol/L (3.4-5.0); Sodium 126 mmol/L (137-145)
[2024-07-07] MEDS: METOPROLOL TARTRATE 25 MG TABLET PO ×3 (05:37→17:09)
[2024-07-07] MEDS: ATORVASTATIN 10 MG TABLET BY MOUTH (09:05)
[2024-07-07] MEDS: MULTIVITAMINS /C LUTEIN (CENTRUM SILVER) TABLET *BKC 1 TAB PO (09:05)
[2024-07-07] MEDS: OPTI-GEN TAB 1 TABLET PO (09:05)
[2024-07-07] MEDS: DUTASTERIDE 0.5 MG CAPSULE PO (09:05)
[2024-07-07] MEDS: levETIRAcetam Tablet 250 MG, levETIRAcetam Tablet 500 MG 750 MG PO ×2 (09:05→20:14)
[2024-07-07] MEDS: PANTOPRAZOLE 40 MG TABLET PO (09:05)
[2024-07-07] MEDS: DULoxetine HCL 30 MG CAPSULE.DR PO (09:05)
[2024-07-07] MEDS: ENOXAPARIN 100 MG/ML SYRINGE 86 MG SUB-Q (09:06)
[2024-07-07] MEDS: ASPIRIN 81 MG CHEWABLE TABLET BY MOUTH (09:06)
[2024-07-07 11:53] LABS: Phenytoin Dilantin Free 0.6 mg/L (1.0-2.0)
--- NOTE | 2024-07-07 13:43 | P.PNIM_ITS ---
Progress Note: A&P Assessment and Plan (1) Atrial flutter with rapid ventricular response: Code(s): I48.92 - Unspecified atrial flutter Status: Acute Assessment and Plan: Patient presents with fatigue and elevated heart rate. Unclear on onset. EKG shows atrial flutter with RVR (130), incomplete right BBB, LAFB and LVH CXR showing minimal discoid atelectasis and/or scarring left lower lobe Troponin negative x3. BNP 3630. TSH 4.87 with normal free T4. Etiology unclear on why he developed AFlutter. [id number] is 3 (age, HTN) Echo showing EF 65-70% and mild MR. Patient was given diltiazem IV in the ED. Was started on Lovenox therapeutic dosing. He was started on diltiazem drip. He remains on Lovenox. Cardiology consulted. Changed to oral diltiazem and oral metoprolol added. Heart rate worse today probably due to the missed medication. Lopressor advanced and diltiazem stopped. Discuss with pharmacy about anticoagulation given the interaction with Dilantin but no good options so Neuro consulted and recommended Keppra 750mg Q12h. Change Dilantin to Keppra today. Change to long acting lopressor if HR okay. 07/07/24 Patient heart rate is under control. Patient was started on Eliquis. Possible discharge in the morning (2) Hyponatremia: Code(s): E87.1 - Hypo-osmolality and hyponatremia Status: Acute Assessment and Plan: Patient with chronic hyponatremia most likely related to his medications. Sodium 132 on admission but dropped to 127 Loren 47 with FENa 0.2% so possibly prerenal. Continue to follow 07.07.24 Patient Is symptomatic. Will continue to monitor (3) Seizure disorder: Code(s): G40.909 - Epilepsy, unspecified, not intractable, without status epilepticus Status: Acute Assessment and Plan: 07/07/24 Patient with seizure disorder. Dilantin resumed and level ordered. Changed to Keppra PT/OT (4) Hypertension: Code(s): I10 - Essential (primary) hypertension Status: Acute Assessment and Plan: Patient's blood pressure was reviewed on 07/06 Blood pressure remains well controlled. Will continue to follow (5) Hyperlipidemia: Code(s): E78.5 - Hyperlipidemia, unspecified Status: Acute Assessment and Plan: LFTs within normal limits. Continue Lipitor. (6) Benign prostatic hyperplasia: Code(s): N40.0 - Benign prostatic hyperplasia without lower urinary tract symptoms Status: Acute Assessment and Plan: Stable. Plan Thrombocytopenia - Plt count was 143K but better. Will monitor periodically for now. DVT prophylaxis -Lovenox Code status -full Subjective Date/time seen: 07/07/24 13:43 Interval history: 89yo male with seizure disorder, HTT, HLD, GERD and BPH who presented to the ED via private vehicle from home for evaluation of fatigue and a fast heart rate. Patient was seen during the morning rounds today. Feeling better. Decreased shortness of breath. No chest pain. No abdominal pain, nausea, no vomiting Review of Systems Review of Systems: 12 systems were reviewed and are negativ e except for as per HPI. Exam Narrative: AF 97.4 104/66 104 18 97% ra Gen - NARD Chest - CTA bilaterally, nml RR CV - irregularly irregular. Abd - Soft, NT/ND, Positive BS Ext - No pedal edema. Psych - Nml mood and affect Skin - Warm and dry Objective Data Vital Signs Vital Signs: Vital Signs - 24 hr 07/06/24 14:00 07/06/24 16:00 07/06/24 17:11 Temperature 36.4 C L Pulse Rate 99 83 116 H Respiratory Rate 20 Blood Pressure 117/75 Pulse Oximetry 98 Oxygen Delivery 07/06/24 16:00 07/06/24 18:00 07/06/24 19:42 Temperature 36.7 C Pulse Rate 82 82 79 Respiratory Rate 20 Blood Pressure 136/81 Pulse Oximetry 100 Oxygen Delivery 07/06/24 20:00 07/06/24 20:00 07/06/24 22:00 Temperature Pulse Rate 80 80 Respiratory Rate Blood Pressure Pulse Oximetry Oxygen Delivery Room Air 07/06/24 23:19 07/06/24 23:58 07/07/24 00:00 Temperature 36.5 C Pulse Rate 78 78 Respiratory Rate 16 Blood Pressure 133/70 Pulse Oximetry 98 Oxygen Delivery Room Air 07/07/24 00:00 07/07/24 02:00 07/07/24 04:00 Temperature Pulse Rate 74 80 106 H Respiratory Rate Blood Pressure Pulse Oximetry Oxygen Delivery 07/07/24 04:00 07/07/24 04:42 07/06/24 22:00 Temperature 36.6 C Pulse Rate 106 H Respiratory Rate 16 Blood Pressure 109/68 Pulse Oximetry 97 98 Oxygen Delivery Room Air Room Air 07/07/24 05:37 07/07/24 06:00 07/07/24 08:00 Temperature 36.6 C Pulse Rate 89 80 80 Respiratory Rate 16 Blood Pressure 112/68 Pulse Oximetry 94 Oxygen Delivery 07/07/24 12:14 07/07/24 12:00 07/07/24 12:00 Temperature 36.5 C Pulse Rate 97 82 Respiratory Rate 18 Blood Pressure 104/70 Pulse Oximetry 96 Oxygen Delivery Room Air Intake/Output Intake/Output: Intake & Output 07/04/24 07/05/24 07/06/24 07/07/24 23:59 23:59 23:59 23:59 Intake Total 2092.5 2944.9 2560 2990 Output Total 645 918 531 9947 Balance 1447.5 2543.9 1810 690 Meds/Results Medications: Active Medications Generic Name Dose Route Start Last Admin Trade Name Freq PRN Reason Stop Dose Admin Acetaminophen 650 mg 07/03/24 20:03 07/04/24 03:27 Acetaminophen 325 Mg Tablet PO 325 mg Q4H PRN Administration Mild Pain (1-3) or Fever Apixaban 5 mg 07/07/24 21:00 Apixaban 5 Mg Tablet PO Q12HR SARA Aspirin 81 mg 07/05/24 09:00 07/07/24 09:06 Aspirin 81 Mg Chewable Tablet BY MOUTH 81 mg DAILY SARA Administration Atorvastatin Calcium 10 mg 07/04/24 12:35 07/07/24 09:05 Atorvastatin 10 Mg Tablet BY MOUTH 10 mg DAILY SARA Administration Duloxetine HCl 30 mg 07/04/24 12:35 07/07/24 09:05 Duloxetine Hcl 30 Mg Capsule.Dr PO 30 mg DAILY SARA Administration Dutasteride 0.5 mg 07/04/24 12:35 07/07/24 09:05 Dutasteride 0.5 Mg Capsule PO 0.5 mg DAILY SARA Administration Fluticasone Propionate 2 spray 07/04/24 12:30 Fluticasone Propionate 0.05% Na Spr 16 Gm Btl (*Bkc) NASAL DAILY PRN Congestion Levetiracetam 250 mg/ 750 mg 07/06/24 21:00 07/07/24 09:05 Levetiracetam 500 mg PO 750 mg Q12HR SARA Administration Lidocaine 1 patch 07/04/24 12:35 07/07/24 09:06 Lidocaine 5% Patch TRANSDERM Not Given DAILY SARA Metoprolol Tartrate 25 mg 07/06/24 12:00 07/07/24 12:14 Metoprolol Tartrate 25 Mg Tablet PO 25 mg Q6H SARA Administration Metoprolol Tartrate 5 mg 07/06/24 14:32 Metoprolol Tartrate Inj 5 Mg/5 Ml Vial IV PUSH Q2H PRN Tachycardia Multivitamins/Minerals 1 tab 07/05/24 09:00 07/07/24 09:05 Multivitamins /C Lutein (Centrum Silver) Tablet *Bkc PO 08/04/24 08:59 1 tab DAILY SARA Administration Multivitamins/Minerals 1 tablet 07/05/24 09:00 07/07/24 09:05 Opti-Gen Tab PO 1 tablet QAM SARA Administration Pantoprazole Sodium 40 mg 07/05/24 09:00 07/07/24 09:05 Pantoprazole 40 Mg Tablet PO 40 mg QAM SARA Administration Radiology Results: ITS Impressions Chest X-Ray 07/03/24 17:48 IMPRESSION: Minimal discoid atelectasis and/or scarring in the left lower lung Labs Labs: Laboratory Results - last 24 hr 07/03/24 07/07/24 17:30 04:32 Sodium 126 L Potassium 4.2 Chloride 100 Carbon Dioxide 24 Anion Gap 2 L BUN 16 Creatinine 0.70 Estim Creat Clear Calc 60 Estimated GFR > 60 Glucose 89 Calcium 8.1 L Free Phenytoin 0.6 L Quality VTE Prophylaxis VTE prophylaxis: pharmacologic ordered
--- NOTE | 2024-07-07 15:34 | PM.PNCARD ---
Progress Note: A&P Assessment and Plan (1) Atrial flutter with rapid ventricular response: Code(s): I48.92 - Unspecified atrial flutter Status: Acute (2) Hypertension: Code(s): I10 - Essential (primary) hypertension Status: Acute (3) Hyperlipidemia: Code(s): E78.5 - Hyperlipidemia, unspecified Status: Acute Plan 1. Seizure disorder 2. HTN 3. Hyperlipidemia 4. Atrial Flutter, CHADSVASC 3 -Given RVR with activity, will increase Metoprolol. Currently getting 25mg Q6H, will transition to 100mg BID for easier dosing. -Continue with Eliquis 5mg BID for anticoagulation. -He can be discharged once adequately rate controlled. Subjective Date/time seen: 07/07/24 15:34 Interval history: Reason for visit: Atrial flutter with RVR Date of service 07/07: Rate controlled for the most part, however, with activity, heart rate went up to the 130s. Review of Systems Review of Systems: All systems reviewed & are unremarkable except as noted in HPI and below (HPI) Exam Const: General: comfortable and no acute distress HENMT: Mouth: Yes moist mucous membranes Eyes: General: appearance normal, both eyes and all related structures Sclera: sclerae normal Resp: Effort & Inspection: normal respiratory effort Cardio: Rate: regular rate Rhythm: regular rhythm Skin: General skin exam: normal color Neuro: Speech: normal speech Psych: Mental Status: mental status grossly normal Affect: normal affect Objective Data Vital Signs Vital Signs: Vital Signs - 24 hr 07/06/24 16:00 07/06/24 17:11 07/06/24 16:00 Temperature 36.4 C L Pulse Rate 83 116 H 82 Respiratory Rate 20 Blood Pressure 117/75 Pulse Oximetry 98 Oxygen Delivery 07/06/24 18:00 07/06/24 19:42 07/06/24 20:00 Temperature 36.7 C Pulse Rate 82 79 Respiratory Rate 20 Blood Pressure 136/81 Pulse Oximetry 100 Oxygen Delivery Room Air 07/06/24 20:00 07/06/24 22:00 07/06/24 23:19 Temperature Pulse Rate 80 80 78 Respiratory Rate Blood Pressure Pulse Oximetry Oxygen Delivery 07/06/24 23:58 07/07/24 00:00 07/07/24 00:00 Temperature 36.5 C Pulse Rate 78 74 Respiratory Rate 16 Blood Pressure 133/70 Pulse Oximetry 98 Oxygen Delivery Room Air 07/07/24 02:00 07/07/24 04:00 07/07/24 04:00 Temperature Pulse Rate 80 106 H Respiratory Rate Blood Pressure Pulse Oximetry Oxygen Delivery Room Air 07/07/24 04:42 07/06/24 22:00 07/07/24 05:37 Temperature 36.6 C Pulse Rate 106 H 89 Respiratory Rate 16 Blood Pressure 109/68 Pulse Oximetry 97 98 Oxygen Delivery Room Air 07/07/24 06:00 07/07/24 08:00 07/07/24 12:14 Temperature 36.6 C Pulse Rate 80 80 97 Respiratory Rate 16 Blood Pressure 112/68 Pulse Oximetry 94 Oxygen Delivery 07/07/24 12:00 07/07/24 12:00 07/07/24 08:00 Temperature 36.5 C Pulse Rate 82 81 Respiratory Rate 18 Blood Pressure 104/70 Pulse Oximetry 96 Oxygen Delivery Room Air 07/07/24 10:00 07/07/24 12:00 07/07/24 14:00 Temperature Pulse Rate 83 82 95 Respiratory Rate Blood Pressure Pulse Oximetry Oxygen Delivery Intake/Output Intake/Output: Intake & Output 07/04/24 07/05/24 07/06/24 07/07/24 23:59 23:59 23:59 23:59 Intake Total 2092.5 2944.9 2560 2990 Output Total 645 242 718 4663 Balance 1447.5 2543.9 1810 690 Meds/Results Medications: Active Medications Generic Name Dose Route Start Last Admin Trade Name Freq PRN Reason Stop Dose Admin Acetaminophen 650 mg 07/03/24 20:03 07/04/24 03:27 Acetaminophen 325 Mg Tablet PO 325 mg Q4H PRN Administration Mild Pain (1-3) or Fever Apixaban 5 mg 07/07/24 21:00 Apixaban 5 Mg Tablet PO Q12HR SARA Aspirin 81 mg 07/05/24 09:00 07/07/24 09:06 Aspirin 81 Mg Chewable Tablet BY MOUTH 81 mg DAILY SARA Administration Atorvastatin Calcium 10 mg 07/04/24 12:35 07/07/24 09:05 Atorvastatin 10 Mg Tablet BY MOUTH 10 mg DAILY SARA Administration Duloxetine HCl 30 mg 07/04/24 12:35 07/07/24 09:05 Duloxetine Hcl 30 Mg Capsule.Dr PO 30 mg DAILY SARA Administration Dutasteride 0.5 mg 07/04/24 12:35 07/07/24 09:05 Dutasteride 0.5 Mg Capsule PO 0.5 mg DAILY SARA Administration Fluticasone Propionate 2 spray 07/04/24 12:30 Fluticasone Propionate 0.05% Na Spr 16 Gm Btl (*Bkc) NASAL DAILY PRN Congestion Levetiracetam 250 mg/ 750 mg 07/06/24 21:00 07/07/24 09:05 Levetiracetam 500 mg PO 750 mg Q12HR SARA Administration Lidocaine 1 patch 07/04/24 12:35 07/07/24 09:06 Lidocaine 5% Patch TRANSDERM Not Given DAILY SARA Metoprolol Tartrate 25 mg 07/06/24 12:00 07/07/24 12:14 Metoprolol Tartrate 25 Mg Tablet PO 25 mg Q6H SARA Administration Metoprolol Tartrate 5 mg 07/06/24 14:32 Metoprolol Tartrate Inj 5 Mg/5 Ml Vial IV PUSH Q2H PRN Tachycardia Multivitamins/Minerals 1 tab 07/05/24 09:00 07/07/24 09:05 Multivitamins /C Lutein (Centrum Silver) Tablet *Bkc PO 08/04/24 08:59 1 tab DAILY SARA Administration Multivitamins/Minerals 1 tablet 07/05/24 09:00 07/07/24 09:05 Opti-Gen Tab PO 1 tablet QAM SARA Administration Pantoprazole Sodium 40 mg 07/05/24 09:00 07/07/24 09:05 Pantoprazole 40 Mg Tablet PO 40 mg QAM SARA Administration Radiology Results: ITS Impressions Chest X-Ray 07/03/24 17:48 IMPRESSION: Minimal discoid atelectasis and/or scarring in the left lower lung Labs Labs: Laboratory Results - last 24 hr 07/03/24 07/07/24 17:30 04:32 Sodium 126 L Potassium 4.2 Chloride 100 Carbon Dioxide 24 Anion Gap 2 L BUN 16 Creatinine 0.70 Estim Creat Clear Calc 60 Estimated GFR > 60 Glucose 89 Calcium 8.1 L Free Phenytoin 0.6 L
[2024-07-07] MEDS: METOPROLOL TARTRATE 50 MG TAB 100 MG PO (20:14)
[2024-07-07] MEDS: APIXABAN 5 MG TABLET PO (20:14)
[2024-07-08] VITALS (8 sets, daily range): BP systolic 112–124; BP diastolic 53–65; PULSE 58–84; RESP 18; TEMP 36.7–36.8; O2SAT 99–100
--- NOTE | 2024-07-08 02:15 | ECG_ITS ---
Test Date: 2024-07-08 02:23:06 Measurements Intervals [place] Rate: 61 P: 24 AR: 190 QRS: -56 QRSD: 116 T: 11 QT: 444 QTc: 451 Interpretive Statements SINUS RHYTHM WITH OCCASIONAL SUPRAVENTRICULAR PREMATURE COMPLEXES LEFT ANTERIOR FASCICULAR BLOCK BASELINE ARTIFACT- V4-V6 ABNORMAL ECG Compared to ECG 07/03/2024 21:47:39 Atrial flutter no longer present Electronically Signed On 07-08-2024 07:27:21 CHEMISTRY LABORATORY TECHNICIAN by Paulo Gamez D.O.
[2024-07-08 05:09] LABS: Alanine Aminotransferase 50 U/L (6-50); Albumin Level 3.1 g/dL (3.5-5.1); Alkaline Phosphatase 74 U/L (38-126); Anion Gap 5 mmol/L (4-12); Aspartate Amino Transferase 36 U/L (17-59); Bilirubin,Total 0.4 mg/dL (0.2-1.3); Blood Urea Nitrogen 18 mg/dL (9-20); Carbon Dioxide 25 mmol/L (22-30); Chloride 98 mmol/L (98-107); Estimated CRCL calculation 53 ml/min; Estimated Glomerular Filt Rate > 60; Glucose 84 mg/dL (65-110); Potassium 4.2 mmol/L (3.4-5.0); Sodium 128 mmol/L (137-145)
[2024-07-08] MEDS: METOPROLOL TARTRATE 50 MG TAB 100 MG PO (08:15)
[2024-07-08] MEDS: MULTIVITAMINS /C LUTEIN (CENTRUM SILVER) TABLET *BKC 1 TAB PO (08:16)
[2024-07-08] MEDS: ATORVASTATIN 10 MG TABLET BY MOUTH (08:16)
[2024-07-08] MEDS: levETIRAcetam Tablet 250 MG, levETIRAcetam Tablet 500 MG 750 MG PO (08:16)
[2024-07-08] MEDS: ASPIRIN 81 MG CHEWABLE TABLET BY MOUTH (08:16)
[2024-07-08] MEDS: PANTOPRAZOLE 40 MG TABLET PO (08:16)
[2024-07-08] MEDS: DUTASTERIDE 0.5 MG CAPSULE PO (08:16)
[2024-07-08] MEDS: APIXABAN 5 MG TABLET PO (08:17)
[2024-07-08] MEDS: DULoxetine HCL 30 MG CAPSULE.DR PO (08:17)
[2024-07-08] MEDS: OPTI-GEN TAB 1 TABLET PO (08:17)
--- NOTE | 2024-07-08 09:58 | PM.PNCARD ---
Progress Note: A&P Assessment and Plan (1) Atrial flutter: Code(s): I48.92 - Unspecified atrial flutter Status: Acute Plan 89-year-old man with paroxysmal atrial flutter he is now being treated with metoprolol and apixaban with advancement of the dose of his metoprolol yesterday he is now back in sinus rhythm with APCs. Explained to the patient and his son that he can be discharged at this time. Also explained to them that it is certainly possible if not probable that he will have intermittent atrial arrhythmias while on metoprolol. Other than his blood pressure cuff indicating his rhythm was irregular he had no symptoms of or awareness of his atrial flutter. Will arrange for follow-up in the office in a timely fashion with Dr. Timothy Carlton MD [facility] Subjective Date/time seen: Date of service:07/08/24 09:58 Interval history: Reason for visit: Atrial flutter with RVR Date of service 07/07: Rate controlled for the most part, however, with activity, heart rate went up to the 130s. Date of service 07/08/2024: Patient has converted to sinus rhythm with PACs. He is asymptomatic reports no problems when he is up ambulating to the restroom etc. Exam Narrative: AF 97.7 118/65 92 14 95% ra Gen - NARD Chest - CTA bilaterally, nml RR CV - irregularly irregular. Tele showing atrial fibrillation with intermittent RVR Abd - Soft, NT/ND, Positive BS Ext - No pedal edema. Negative Homans Psych - Nml mood and affect Skin - Warm and dry Const: General: comfortable, no acute distress, alert and awake Orientation/consciousness: patient oriented x3 HENMT: Head: normal to inspection Mouth: Yes moist mucous membranes Eyes: General: appearance normal, both eyes and all related structures Sclera: sclerae normal Pupils: Equal, round and reactive pupils present Neck: Neck: normal visual inspection, supple and no JVD Carotids: normal carotid upstroke Resp: Effort & Inspection: normal respiratory effort Auscultation: clear to auscultation bilaterally Cardio: Rate: regular rate Rhythm: regular rhythm Heart sounds: S1 normal heart sound present, S2 normal heart sound present and no murmurs GI: Auscultation: normal bowel sounds Skin: General skin exam: normal color Neuro: General: patient oriented x3 Cranial nerves: Yes Equal, round and reactive pupils present Speech: normal speech Extrem: General: normal to inspection Psych: Appearance: grossly normal Mental Status: mental status grossly normal Affect: normal affect Objective Data Vital Signs Vital Signs: Vital Signs - 24 hr 07/07/24 12:14 07/07/24 12:00 07/07/24 12:00 Temperature 36.5 C Pulse Rate 97 82 Respiratory Rate 18 Blood Pressure 104/70 Pulse Oximetry 96 Oxygen Delivery Room Air 07/07/24 10:00 07/07/24 12:00 07/07/24 14:00 Temperature Pulse Rate 83 82 95 Respiratory Rate Blood Pressure Pulse Oximetry Oxygen Delivery 07/07/24 16:00 07/07/24 17:09 07/07/24 16:00 Temperature 36.8 C Pulse Rate 79 107 H Respiratory Rate 20 Blood Pressure 123/73 Pulse Oximetry 97 Oxygen Delivery Room Air 07/07/24 16:00 07/07/24 18:00 07/07/24 20:14 Temperature Pulse Rate 81 109 H 82 Respiratory Rate Blood Pressure Pulse Oximetry Oxygen Delivery 07/07/24 20:00 07/07/24 20:00 07/07/24 20:00 Temperature 36.6 C Pulse Rate 81 83 Respiratory Rate 18 Blood Pressure 102/64 Pulse Oximetry 96 Oxygen Delivery Room Air 07/07/24 22:00 07/07/24 23:40 07/08/24 00:00 Temperature 37.0 C Pulse Rate 80 65 Respiratory Rate 18 Blood Pressure 99/58 L Pulse Oximetry 96 Oxygen Delivery Room Air 07/08/24 00:00 07/08/24 02:00 07/08/24 05:15 Temperature 36.7 C Pulse Rate 61 59 L 67 Respiratory Rate 18 Blood Pressure 124/65 Pulse Oximetry 99 Oxygen Delivery 07/08/24 04:00 07/08/24 04:00 07/08/24 06:00 Temperature Pulse Rate 73 58 L Respiratory Rate Blood Pressure Pulse Oximetry Oxygen Delivery Room Air 07/08/24 08:15 07/08/24 08:00 Temperature 36.8 C Pulse Rate 84 70 Respiratory Rate 18 Blood Pressure 112/53 L Pulse Oximetry 100 Oxygen Delivery Intake/Output Intake/Output: Intake & Output 07/05/24 07/06/24 07/07/24 07/08/24 23:59 23:59 23:59 23:59 Intake Total 2944.9 2560 5220 550 Output Total 621 450 0957 550 Balance 2543.9 1810 2120 0 Meds/Results Medications: Active Medications Generic Name Dose Route Start Last Admin Trade Name Freq PRN Reason Stop Dose Admin Acetaminophen 650 mg 07/03/24 20:03 07/04/24 03:27 Acetaminophen 325 Mg Tablet PO 325 mg Q4H PRN Administration Mild Pain (1-3) or Fever Apixaban 5 mg 07/07/24 21:00 07/08/24 08:17 Apixaban 5 Mg Tablet PO 5 mg Q12HR SARA Administration Aspirin 81 mg 07/05/24 09:00 07/08/24 08:16 Aspirin 81 Mg Chewable Tablet BY MOUTH 81 mg DAILY SARA Administration Atorvastatin Calcium 10 mg 07/04/24 12:35 07/08/24 08:16 Atorvastatin 10 Mg Tablet BY MOUTH 10 mg DAILY SARA Administration Duloxetine HCl 30 mg 07/04/24 12:35 07/08/24 08:17 Duloxetine Hcl 30 Mg Capsule.Dr PO 30 mg DAILY SARA Administration Dutasteride 0.5 mg 07/04/24 12:35 07/08/24 08:16 Dutasteride 0.5 Mg Capsule PO 0.5 mg DAILY SARA Administration Fluticasone Propionate 2 spray 07/04/24 12:30 Fluticasone Propionate 0.05% Na Spr 16 Gm Btl (*Bkc) NASAL DAILY PRN Congestion Levetiracetam 250 mg/ 750 mg 07/06/24 21:00 07/08/24 08:16 Levetiracetam 500 mg PO 750 mg Q12HR SARA Administration Lidocaine 1 patch 07/04/24 12:35 07/08/24 08:18 Lidocaine 5% Patch TRANSDERM Not Given DAILY SARA Metoprolol Tartrate 5 mg 07/06/24 14:32 Metoprolol Tartrate Inj 5 Mg/5 Ml Vial IV PUSH Q2H PRN Tachycardia Metoprolol Tartrate 100 mg 07/07/24 21:00 07/08/24 08:15 Metoprolol Tartrate 50 Mg Tab PO 100 mg Q12HR SARA Administration Multivitamins/Minerals 1 tab 07/05/24 09:00 07/08/24 08:16 Multivitamins /C Lutein (Centrum Silver) Tablet *Bkc PO 08/04/24 08:59 1 tab DAILY SARA Administration Multivitamins/Minerals 1 tablet 07/05/24 09:00 07/08/24 08:17 Opti-Gen Tab PO 1 tablet QAM SARA Administration Pantoprazole Sodium 40 mg 07/05/24 09:00 07/08/24 08:16 Pantoprazole 40 Mg Tablet PO 40 mg QAM SARA Administration Radiology Results: ITS Impressions Chest X-Ray 07/03/24 17:48 IMPRESSION: Minimal discoid atelectasis and/or scarring in the left lower lung Labs Labs: Laboratory Results - last 24 hr 07/03/24 07/08/24 17:30 04:27 Sodium 128 L Potassium 4.2 Chloride 98 Carbon Dioxide 25 Anion Gap 5 BUN 18 Creatinine 0.80 Estim Creat Clear Calc 53 Estimated GFR > 60 Glucose 84 Calcium 8.0 L Total Bilirubin 0.4 AST 36 ALT 50 Alkaline Phosphatase 74 Total Protein 5.0 L Albumin 3.1 L Free Phenytoin 0.6 L
--- NOTE | 2024-07-08 10:05 | PM.DS ---
DS: Admitting Diagnosis Discharge Date 07/08/2024 Admitting Diagnosis Atrial flutter with rapid ventricular response DS: Discharge Diagnosis Discharge Diagnosis (1) Atrial flutter with rapid ventricular response: Code(s): I48.92 - Unspecified atrial flutter Status: Acute Assessment and Plan: Patient presents with fatigue and elevated heart rate. Unclear on onset. EKG shows atrial flutter with RVR (130), incomplete right BBB, LAFB and LVH CXR showing minimal discoid atelectasis and/or scarring left lower lobe Troponin negative x3. BNP 3630. TSH 4.87 with normal free T4. Etiology unclear on why he developed AFlutter. [id number] is 3 (age, HTN) Echo showing EF 65-70% and mild MR. Patient was given diltiazem IV in the ED. Was started on Lovenox therapeutic dosing. He was started on diltiazem drip. He remains on Lovenox. Cardiology consulted. Changed to oral diltiazem and oral metoprolol added. Heart rate worse today probably due to the missed medication. Lopressor advanced and diltiazem stopped. Discuss with pharmacy about anticoagulation given the interaction with Dilantin but no good options so Neuro consulted and recommended Keppra 750mg Q12h. Change Dilantin to Keppra today. Change to long acting lopressor if HR okay. 07/07/24 Patient heart rate is under control. Patient was started on Eliquis. Possible discharge in the morning (2) Hyponatremia: Code(s): E87.1 - Hypo-osmolality and hyponatremia Status: Acute Assessment and Plan: Patient with chronic hyponatremia most likely related to his medications. Sodium 132 on admission but dropped to 127 Loren 47 with FENa 0.2% so possibly prerenal. Continue to follow 07.07.24 Patient Is symptomatic. Will continue to monitor (3) Seizure disorder: Code(s): G40.909 - Epilepsy, unspecified, not intractable, without status epilepticus Status: Acute Assessment and Plan: 07/07/24 Patient with seizure disorder. Dilantin resumed and level ordered. Changed to Keppra PT/OT (4) Hypertension: Code(s): I10 - Essential (primary) hypertension Status: Acute Assessment and Plan: Patient's blood pressure was reviewed on 07/06 Blood pressure remains well controlled. Will continue to follow (5) Hyperlipidemia: Code(s): E78.5 - Hyperlipidemia, unspecified Status: Acute Assessment and Plan: LFTs within normal limits. Continue Lipitor. (6) Benign prostatic hyperplasia: Code(s): N40.0 - Benign prostatic hyperplasia without lower urinary tract symptoms Status: Acute Assessment and Plan: Stable. Plan Thrombocytopenia - Plt count was 143K but better. Will monitor periodically for now. DVT prophylaxis -Lovenox Code status -full DS: Summary Hospital Course Reason for hospitalization: Atrial flutter with rapid response Hospital Course: 89 years old male was admitted complained of having palpitation, patient was found to have atrial flutter with RVR. Cardiology was consulted. Patient was started on Eliquis and metoprolol. Today patient heart rate is under control. Patient is feeling better. Patient has chronic hyponatremia. Sodium however was around 129. Patient is asymptomatic. Today patient is feeling better. Patient was discharged home in stable condition. Follow-up scheduled with primary care at Cardiology. Status at Discharge Cognitive/behavioral status at discharge: Stable Time Spent with Patient Time attestation: Total time spent providing and/or coordinating discharge services: 30 minutes Exam Narrative: AF 97.4 104/66 104 18 97% ra Gen - NARD Chest - CTA bilaterally, nml RR CV - irregularly irregular. Abd - Soft, NT/ND, Positive BS Ext - No pedal edema. Psych - Nml mood and affect Skin - Warm and dry DS: Data Data Completed and Pending Labs on day of discharge: Labs from last 24 hours 07/08/24 07/03/24 04:27 17:30 Sodium 128 L Potassium 4.2 Chloride 98 Carbon Dioxide 25 Anion Gap 5 BUN 18 Creatinine 0.80 Estim Creat Clear Calc 53 Estimated GFR > 60 Glucose 84 Calcium 8.0 L Total Bilirubin 0.4 AST 36 ALT 50 Alkaline Phosphatase 74 Total Protein 5.0 L Albumin 3.1 L Free Phenytoin 0.6 L Discharge Plan Discharge Attending physician on discharge: Julio Arambula Consulting providers: Matthew Arambula; Franko Luis Discharging Clinician: Julio Arambula Patient Disposition: Home, Self-Care Activity: as tolerated Diet: heart healthy Patient Instructions: Antibiotic Form, Atrial Flutter (DC) Stand Alone Forms: General Discharge Information Follow-up/Referrals: Giorgio,Wili Burgos MD [Non-Staff] - Matthew Arambula MD [Physician] - Discharge Medications: New levetiracetam 750 mg Tablet 750 mg PO Q12HR Qty: 60 0RF Eliquis 5 mg Tablet 5 mg PO Q12HR Qty: 60 0RF metoprolol tartrate 50 mg Tablet 100 mg PO Q12HR Qty: 60 0RF Continued atorvastatin 10 mg tablet 10 mg DAILY dutasteride [Avodart] 0.5 mg capsule 0.5 mg PO DAILY Eye Vitamin 1 tablet EACH EYE DAILY duloxetine 30 mg capsule,delayed release(DR/EC) 30 mg PO DAILY aspirin 81 mg Tablet,Chewable 81 mg DAILY fluticasone propionate 50 mcg/actuation spray,suspension 50 mcg INTRANASAL DIRECTED PRN (Reason: Congestion) omeprazole 20 mg Capsule,Delayed Release(Dr/Ec) 20 mg PO DAILY Centrum Silver Men 1 tablet PO DAILY lidocaine [Lidoderm] 5 % Adhesive Patch,Medicated 1 patch transdermal DAILY Qty: 7 0RF Rx Instructions: back Discontinued phenytoin sodium extended [Dilantin Extended] 100 mg capsule 100 mg PO TID meloxicam 15 mg Tablet 15 mg PO DAILY Date of admission: 07/04/24 07:37 Primary Care Provider: ThaoMaia Admitting Provider: Dung Steen Attending physician on admission: Dung Steen Condition: Stable Quality VTE Prophylaxis VTE prophylaxis: pharmacologic ordered
== END 2024-07-08 11:11 | disposition home or self-care (01) ==
LOC: ANHED 19:00 → ANHIMU 22:46
PROVIDERS: Emergency Medicine; Internal Medicine; Physician Assistant; Admitting Provider General Practice; Emergency Provider Emergency Medicine; PCP Physician Assistant; Visit Provider Internal Medicine
DX: I48.92 Unspecified atrial flutter (principal); E87.1 Hypo-osmolality and hyponatremia; G40.909 Epilepsy, unspecified, not intractable, without status epilepticus; I10 Essential (primary) hypertension; E78.5 Hyperlipidemia, unspecified; D69.6 Thrombocytopenia, unspecified; N40.1 Benign prostatic hyperplasia with lower urinary tract symptoms; R35.1 Nocturia; K21.9 Gastro-esophageal reflux disease without esophagitis; M19.90 Unspecified osteoarthritis, unspecified site; J30.9 Allergic rhinitis, unspecified; Z79.82 Long term (current) use of aspirin; Z79.899 Other long term (current) drug therapy; Z96.1 Presence of intraocular lens; Z98.42 Cataract extraction status, left eye; Z98.41 Cataract extraction status, right eye
CPT/HCPCS: 36415; 71046; 80048; 80053; 80069; 80186; 82570; 83690; 83735; 83880; 84300; 84439; 84443; 84484; 85025; 85027; 85610; 85730; 93005; 94762; 96372; 96374; 97110; 97116; 97161; 97165; 97530; 97535; 99285; A9270; C8929; G0378; J1650; J7030; Q9957